=== PATIENT | female | born 1955 | race Caucasian/White ===

== ENCOUNTER 2016-08-02 12:28 | Inpatient (IN) | payer OTHER ==
[2016-08-02] VITALS (10 sets, daily range): BP systolic 101–146; BP diastolic 50–115; PULSE 78–132; RESP 18–28; O2SAT 90–99
[~2016-08-02] VITALS: Ht 165.1 cm; Wt 62.7 kg
--- NOTE | 2016-08-02 12:32 | ED.REPORT ---
HPI-General Illness Date of Service Aug 02, 2016 ED Provider: Beryl Wesley MD 60 year old female with a recent diagnoses of carotid stenosis and left subclavian stenosis presents to the ER via EMS due to syncope and collapse that occurred just prior to arrival. EMS report that they were called to the scene by a project construction assistant manager that heard the patient collapse upon returning home from an appointment with her PCP for CHF workup. Medics arrived to find the patient confused, sitting on ground, with O2 saturation in the 80's, in atrial fibrillation which is new for the patient. Mental status seemed to improve with supplemental O2. It is noted that patient seemed to have vague left side weakness and variable HR in the field. arrived shortly after the medics , and informed them that the patient has had a cough for the past month, and was diagnosed with walking pneumonia 2 days ago with directions to follow-up for CHF workup. Associated symptoms include fever for 10 days until starting antibiotics two days ago, diarrhea since starting antibiotics, 8 lb weight gain over the past week. Patient does not recall her syncopal episode, but states that she remembers dropping her honey jar prior to the event. She complains of headache since her fall, but denies any significant traumas secondary to her collapse, denies chest pain, and she has not consumed alcohol in recent weeks due to her illness. Last bowel movement was this morning. Nursing Notes Stated Complaint: AFIB Nursing Notes Reviewed: Yes Allergies: Coded Allergies: No Known Allergies (Unverified , 08/02/16) Scheduled Amoxicillin/Clav K 875-125 mg (Augmentin 875-125 mg) 1 Each Tablet 1 TABLET PO BID Aspirin (Aspirin) 81 Mg Tablet 81 MG PO DAILY Atenolol (Atenolol) 25 Mg Tablet 25 MG PO DAILY Atorvastatin (Lipitor) 80 Mg Tablet 80 MG PO DAILY Fluoxetine (Prozac) 20 Mg Capsule 20 MG PO DAILY Levothyroxine (Levothyroxine) 137 Mcg Tablet 137 MCG PO DAILY General Time Seen by MD: 12:32 Chief Complaint Other (Syncope) Hx Obtained From: Patient, Spouse, EMS Arrived By: Ambulance Sudden in Onset?: Yes Onset Occurred: Just prior to arrival Associated with: Reports: Fever, Weakness, Denies: Chest pain Recent Healthcare: Recent doctor visit Similar Sx Previous: No Past Medical History Past Medical History Records from [facility] reviewed: Aortic insufficiency CAD High cholesterol Symptomatic PVC's Subclavian artery stenosis Carotid stenosis Hodgkin's lymphoma, in remission - chemotherapy and radiation in 1979 Seen and evaluated at outpatient cardiology clinic in March 2016 for dizziness Echocardiogram from 04/2014: EF 60%, mild MR & TR, mild mod Al, trace Pl, mmild LV diastolic relax, mild MS Past Surgical History Heart valve replacement Splenectomy Uterine cyst and polyp removal Reports: Appendectomy Smoking History Unknown if Ever Smoker Social History Other Social History: Good social support, Review of Systems currently on augmentin PO per her PCP Full Review of Systems Constitutional: Reports: Chills, Fever, Weakness - generalized Respiratory: Reports: Non-productive cough, Shortness of breath Cardiovascular: Denies: Chest pain GI: Denies: Abdominal pain, Nausea, Vomiting Musculoskeletal: Denies: Back pain, Extremity pain, Lumbar pain, Neck pain Neurologic: Reports: Confusion, Focal weakness, Syncope, Weakness, Denies: Numbness, Seizure, Slurred speech, Unable to speak Complete sys rev & neg: except as marked. Physical Exam Vital Signs Vital Signs Date Time Temp Pulse Resp B/P Pulse Ox O2 Delivery O2 Flow Rate FiO2 08/02/16 14:22 121 18 111/50 92 Nasal Cannula 4 08/02/16 13:11 132 28 146/115 92 Nasal Cannula 4 08/02/16 12:38 36.7 128 24 101/60 99 Non-Rebreather 10 Initial VS: Reviewed Head / Eyes: Atraumatic, Normocephalic Neck: Supple, Non-tender, Full range of motion Abdomen / GI: Soft, Non-tender, No guarding, No rebound, No distention Extremities: Vascular intact, Neuro intact, No swelling, No tenderness Skin: Warm, Dry, No cyanosis General/Constitutional: Awake, Alert, Well developed Respiratory / Chest: No chest tenderness, No chest wall deformity Crackles in the bases, bilaterally. Right > Left. Cardiovascular: Cap refill not delayed, Peripheral circulation NL Heart Rate / Rhythm: Positive: Irregular rhythm, Tachycardia Heart Sounds / Murmur: Positive: Diastolic murmur present. (II/), Systolic murmur present.. (II/) Neurologic: Oriented X3, Speech NL, No sensory deficits Focal Weakness: Positive: Pronator drift L Cerebellar Dysfunction: Positive: Finger-nose abnl (left, mild) NIH Stroke Scale Level of Consciousness: Alert and responsive (0) Ask Month & Age: Both questions right (0) Open/Close Eyes/Hand [place] [place]: Performs both tasks (0) Horizontal EO Movements: None (0) Visual Skinner: No visual loss (0) Facial Palsy: Normal symmetry (0) Right Arm Motor Drift (10s): No drift 10 sec (0) Left Arm Motor Drift (10s): Drift, not touch bed (1) Right Leg Motor Drift (5s): No drift 5 sec (0) Left Leg Motor Drift (5s): No drift 5 sec (0) Limb Ataxia FNF/Heel-Ruiz: Ataxia in 1 limb (1) Sensation (Arms/Legs/Face): No sensory loss (0) Language Aphasia: No aphasia, normal (0) Dysarthria: No dysarthria, normal (0) Extinction/Inattention: No exctinct/inattent (0) NIHSS Score: 2 Time NIHSS Performed: 12:47 Date NIHSS Performed: Aug 02, 2016 Interpretation & Diagnostics Lab Results Interpretation Result Diagram: 08/02/16 1357 08/02/16 1423 Test 08/02/16 13:00 08/02/16 13:56 08/02/16 13:57 08/02/16 14:10 Hold Muñoz Top Tube Received (Received) Lactic Acid Level 1.9mmol/L (0.4-2.0) White Blood Count 11.8th/mm3 (3.8-10.1) Red Blood Count 3.41mil/mm3 (3.90-5.20) Hemoglobin 11.2g/dL (12.0-15.6) Hematocrit 34.0% (35.0-46.0) Mean Corpuscular Volume 99.7fL (81-100) Mean Corpuscular Hemoglobin 32.8pg (27.0-35.0) Mean Corpuscular Hemoglobin Concent 32.9% (32.0-37.0) Red Cell Distribution Width 16.4% (12.3-15.4) Platelet Count 523bil/L (150-400) Neutrophils (%) (Auto) 79.0% (40-74) Lymphocytes (%) (Auto) 4.8% (14-46) Monocytes (%) (Auto) 14.6% (4-12) Eosinophils (%) (Auto) 0.9% (0-5) Basophils (%) (Auto) 0.4% (0-3) D-Dimer 4.6mg/L (<0.50) Test 08/02/16 14:23 08/02/16 15:08 Sodium Level 130mEq/L (134-144) Potassium Level 5.0mEq/L (3.5-5.2) Chloride Level 95mEq/L (97-108) Carbon Dioxide Level 24mmol/L (18-29) Blood Urea Nitrogen 10mg/dL (8-27) Creatinine 0.47mg/dL (0.57-1.00) Estimat Glomerular Filtration Rate 193mL/min (>59) Glucose Level 156mg/dL (60-99) Calcium Level 8.1mg/dL (8.5-10.1) Magnesium Level 2.0mg/dL (1.6-2.6) Total Bilirubin 0.4mg/dL (0.0-1.2) Aspartate Amino Transf (AST/SGOT) 35U/L (0-50) Alanine Aminotransferase (ALT/SGPT) 41U/L (0-32) Alkaline Phosphatase 92U/L (25-165) Troponin T < 0.010ug/L (0.0-0.011) Pro-B-Type Natriuretic Peptide 673.7pg/mL (0-287) Total Protein 5.7g/dL (6.4-8.4) Albumin 3.2g/dL (3.4-5.0) Procalcitonin 0.05ng/mL (0.00-0.08) Urine Color Yellow (YELLOW) Urine Appearance Clear (CLEAR,HAZY) Urine pH 6.0 (5.0-8.0) Urine Specific [place] 1.025 (1.003-1.035) Urine Protein Negativemg/dL (NEG,TRACE) Urine Glucose (UA) Negativemg/dL (NEGATIVE) Urine Ketones Negativemg/dL (NEGATIVE) Urine Occult Blood Negative (NEGATIVE) Urine Nitrite Negative (NEGATIVE) Urine Bilirubin Negative (NEGATIVE) Urine Urobilinogen 4.0mg/dL (NORMAL) Urine Leukocyte Esterase Negative (NEGATIVE) Urine RBC 0-2/hpf (0-2) Urine WBC 0-5/hpf (0-5) Urine Epithelial Cells Occasional/hpf (NONE-MOD) Urine Crystals None seen (NONE SEEN) Urine Bacteria O/hpf (NONE-FEW) Urine Hyaline Casts None/lpf (NONE) Urine Granular Casts None seen (NONE SEEN) Urine Waxy Casts None seen (NONE SEEN) Urine Red Blood Cell Casts None seen (NONE SEEN) Urine White Blood Cell Casts None seen (NONE SEEN) Urine Mucus Present (None Seen) Urine Trichomonas None seen (NONE SEEN) Urine Yeast None (NONE SEEN) Urinalysis Comment Transitional epi Urine Culture Reflexed Not indicated ECG Interpretation ECG Interpretation: New atrial fibrillation with RVR, rate 134 No ischemia. Time: 12:38 Interpreted by: ED physician X-Ray Chest Interpretation Chest Xray Interpretation: IMPRESSION: Bibasilar atelectasis versus aspiration or pneumonia. Correlate clinically. Dictated by: Louis Ly RRA Interpreted: Jennifer Burroughs MD on 08/02/2016 at 14:37 Transcribed by: RONY on 08/02/2016 at 14:37 View: Portable, 1 view Interpretation / Wet Read by: Interpret - Radiologist CT Head Interpretation IMPRESSION: No acute intracranial disease process. Dictated by: Jennifer Burroughs MD, PhD on 08/02/2016 at 14:45 Approved by: Jennifer Burroughs MD, PhD on 08/02/2016 at 14:47 Study: Head CT no contrast Interpretation / Wet Read by: Interpret - Radiologist Re-Eval/Medical Decision Med Decision/Clinical Course Presents with a puzzling constellation of symptoms. Started with syncope also noted to have recent fevers, diarrhea vomiting, tachycardia, new atrial fibrillation, possible new left-sided weakness improving. CT scan does not show masses bleeds or acute stroke. NIH scale was 2 with very mild left arm symptoms of weakness and some trouble with [id number]. Chest x-ray suggests atelectasis versus pneumonia. Clinical exam does not suggest pneumonia. Calcitonin is low white count is minimally elevated with minimal left shift. No evidence of sepsis at this point will not opt straight with any antibiotics With atrial fibrillation, significant hypoxia, and new onset syncope, possibility of pulmonary embolism is certainly entertained. D-dimer significantly elevated. CT scan of the chest has been ordered. At this point patient is doing well, responded nicely to fluids. Is much better with oxygen weaned down to 4 L rather than nasal cannula. Remains in atrial fibrillation rate in the 120 range. She is tolerating the rate at this point so additional control of the atrial fibrillation has not been a focus of her emergency room visit up to this point. Patient will be turned over to Dr. Michelle Walker at 1600. CT scan is currently pending, question of medication management for her atrial fibrillation will be left to Dr. Walker, do anticipate admission once workup is complete. Final diagnosis is uncertain at this point. At this point a total of 37 minutes of critical care time has been accumulated. Please referre to Dr. Walker's notes for total critical care time. more alert and Source of Hx: Old records Time of Eval: 12:45 Re-Evaluation/Progress Note: Patient is now accompanied by her who is at the bedside. Discussed physical examination findings and need for admission. Patient is amenable to the plan. Time of Eval: 13:43 Re-Evaluation/Progress Note: Medical records from [facility] reviewed. Counseled Regarding: Diagnosis, Lab results, Need for admission Discharge & Departure Primary Impression: Syncope Additional Impression: New onset atrial fibrillation Disposition: ADMITTED TO HOSPITAL Discharge Condition All VS Reviewed: Yes Condition: Stable Referrals: Elizabeth Ann MD (PCP) Crit Care Except Billable Proc Time Spent: 30-74 minutes Services Performed: Patient management by me, Time spent at bedside, Reviewing test results, Reviewing imaging, Discussing patient care, Documentation in record, Time with fam/surrogate Scribe Attestation Portions of this note were transcribed by Carlos Mejia. I, Dr. Wesley, personally performed the history, physical exam and medical decision-making; I reviewed and confirmed the accuracy of the information in the transcribed note. Signed by: Manda Orellana, 08/02/2016 and 14:53 copies to: Elizabeth Ann MD, Shawna L MD Aug 02, 2016 12:32 CARLOS MEJIA Aug 02, 2016 12:56
[2016-08-02] MEDS ORDERED: 0.9% Sodium Chloride 1,000 ML IV ONE ×2 (12:47→17:40)
[2016-08-02 14:02] LABS: BASOPHILS % (AUTO) 0.4 % (0-3); EOSINOPHILS % (AUTO) 0.9 % (0-5); MONOCYTES % (AUTO) 14.6 % (4-12); Mean Corpuscular Hemoglobin 32.8 pg (27.0-35.0); Mean Corpuscular Volume 99.7 fL (81-100); Platelet Count 523 bil/L (150-400)
[2016-08-02] MEDS ORDERED: ATOR80TA PO (14:25)
[2016-08-02] MEDS ORDERED: HYDROmorphone 0.5 mg/0.5 mL iSecure Syringe IVPUSH PRN (14:30)
[2016-08-02] MEDS ORDERED: PROZ20 PO (14:32)
[2016-08-02] MEDS ORDERED: ASPI81TA3 PO (14:33)
[2016-08-02] MEDS ORDERED: ASPI-973 PO (14:33)
[2016-08-02] MEDS ORDERED: ATEN25TA PO (14:34)
[2016-08-02] MEDS ORDERED: LEVO137T2 PO (14:34)
[2016-08-02] MEDS ORDERED: AMOX-366 PO (14:35)
--- NOTE | 2016-08-02 14:37 | DRSVH ---
PROCEDURE: X-RAY CHEST ONE VIEW, PORTABLE ([id number]) INDICATIONS: CP TECHNIQUE: One view of the chest was acquired. COMPARISON: None. FINDINGS: Surgical changes and devices: Surgical clips within the upper abdomen. Lungs and pleura: Bibasilar airspace opacities and small left pleural effusion is present. No pneumo thorax. Mediastinum: Mediastinal contours appear normal. Heart size is normal. Bones and chest wall: No suspicious bony lesions. Overlying soft tissues appear unremarkable. IMPRESSION: Bibasilar atelectasis versus aspiration or pneumonia. Correlate clinically. Dictated by: Louis Ly [facility] Interpreted: Jennifer Burroughs MD on 08/02/2016 at 14:37 Transcribed by: RONY on 08/02/2016 at 14:37 Approved by: Jennifer Burroughs MD, PhD on 08/02/2016 at 16:59
--- NOTE | 2016-08-02 14:49 | DRSVH ---
PROCEDURE: CT BRAIN WITHOUT CONTRAST ([id number]) INDICATIONS: syncope TECHNIQUE: Noncontrast 4.5 mm thick angled axial sections acquired from the foramen magnum to the vertex, with c oronal reformats. COMPARISON: [facility], MR, MR BRAIN WO CON, 03/26/2016, 18:02. FINDINGS: Image quality: Excellent. CSF spaces: Basal cisterns are patent. No extra-axial fluid collections. Ventricles are normal in size and shape. Brain: No midline shift. No intracranial masses or hemorrhage. Physiologic calcifications noted in the globus pallidus I. Fernandez-white matter interface is normal. Bilateral vertebral artery atherosclero tic calcifications noted. Skull and face: Calvarium and visualized facial bones are intact, without suspicious lesions. Sinuses: Visualized sinuses and mastoids are clear. IMPRESSION: No acute intracranial disease process. Dictated by: Jennifer Burroughs MD, PhD on 08/02/2016 at 14:45 Approved by: Jennifer Burroughs MD, PhD on 08/02/2016 at 14:47
[2016-08-02 15:06] LABS: TROPONIN T < 0.010 ug/L (0.0-0.011)
[2016-08-02 15:25] LABS: APPEARANCE,URINE CLEAR (CLEAR,HAZY); COLOR,URINE YELLOW (YELLOW); OCCULT BLOOD,URINE NEGATIVE (NEGATIVE)
--- NOTE | 2016-08-02 16:58 | DRSVH ---
PROCEDURE: CT ANGIO CHEST PULMONARY EMBOLISM ([id number]) INDICATIONS: syncope, new a. fib, ddimer 4.6 TECHNIQUE: After the administration of intravenous contrast, 2 mm thick sections acquired from the pulmonary api carlos to the posterior costophrenic angles. 3-dimensional maximum intensity projection (MIP) coronal a nd sagittal reformats were then acquired through the thorax. For radiation dose reduction, the follo wing was used: automated exposure control, adjustment of mA and/or kV according to patient size. COMPARISON: [facility], CR, XR CHEST 1VW (PORTABLE), 08/02/2016, 12:49. FINDINGS: Image quality: Excellent. Pulmonary arteries: Pulmonary arteries are normal in size, and demonstrate no intraluminal filling d efects to suggest central pulmonary embolism. Lungs and pleura: Moderate bilateral pleural effusions a superimposed consolidations are present. No pneumothorax. There's overall appearance of increased pulmonary vascularity. Mediastinum: Heart size is normal. There is a prominent pericardial effusion, measuring 21 mm in gre atest AP dimension. No mediastinal or hilar adenopathy. Thoracic aorta is normal in caliber and enh ancement. Esophagus is normal in caliber, without hiatal hernia. Prominent vascular calcifications are present within the aorta and aortic arch. Bones and chest wall: No suspicious bony lesions. Ribs and thoracic spine appear intact throughout. Thyroid gland is not well visualized. No axillary or supraclavicular adenopathy. Abdomen: Visualized upper abdominal solid organs appear normal in the early arterial phase of enhanc ement. IMPRESSION: 1. No evidence of pulmonary embolism. 2. Moderate bilateral pleural effusions a superimposed consolidations. The latter could represent ate lectasis versus developing areas of pneumonia. 3. Mild appearance of increased pulmonary vascularity suggestive of edema. 4. Pericardial effusion. Dictated by: Meche Philip M.D. on 08/02/2016 at 16:53 Approved by: Meche Philip M.D. on 08/02/2016 at 16:56
[2016-08-02] MEDS ORDERED: Diltiazem 5 mg/mL 5 mL Inj IVPUSH ONE (17:30)
[2016-08-02] MEDS ORDERED: cefTRIAXone Inj 1,000 MG in Dextrose 5% Minibag Plus 50 ML IV ONE (17:30)
[2016-08-02] MEDS ORDERED: Azithromycin Inj 500 MG in Dextrose 5% w/Vial Mate 250 ML IV ONE (17:30)
[2016-08-02] MEDS ORDERED: Ondansetron 2 mg/mL 2 mL Inj IVPUSH PRN (17:40)
[2016-08-02] MEDS ORDERED: Alum-Mag Hydrox-Simeth 30 mL Suspension PO PRN (17:40)
[2016-08-02] MEDS ORDERED: CYCL1DRO OP (17:47)
[2016-08-02] MEDS ORDERED: IBUP400T22 PO (17:52)
[2016-08-02] MEDS ORDERED: UBID200C31 PO (17:52)
[2016-08-02] MEDS ORDERED: FAMO20TA4 PO (17:52)
[2016-08-02] MEDS ORDERED: FISH1CAP15 PO (17:52)
[2016-08-02] MEDS ORDERED: MULT-140 PO (17:52)
[2016-08-02] MEDS ORDERED: CALC500T9 PO (17:52)
--- NOTE | 2016-08-02 18:35 | NUR ---
Admit nurse note Admission assessment completed in the ER based on pt. report. Med review completed by ER pharmacist. NKA verified. Pt. denies complaints at the present. States she "passed out" or "fell" earlier today. 2 Iv's in R AC asymptomatic. at bedside. States he will bring in pt's CPAP. Pt. states she has an advance directive but cannot find it and would prefer to make a new one. Referral made to case management for advance directive information.
--- NOTE | 2016-08-02 20:00 | NUR ---
admission patient arrived to room 3028. alert and oriented x3. reviewed fall precautions. verbalized understanding. per telegraph dispatcher, patient now SR rate 90's. notified swing hospitalist via cookpaging. complains of pain to back of head (fall at home). no abrasion visualized. rates 6. given tylenol and ice pack. at bedside. brought in home cpap machine. patient on 2 liters nc. dyspneic with activity. bases of lungs are decreased bilaterally. non productive cough. up to bsc. pale urine. skin within normal limits. reviewed plan of care. no questions at this time.
[2016-08-02] MEDS: RESTASIS BOTH_EYES SCH (20:30)
[2016-08-02] MEDS: Omega-3 Fatty Acids 1,000 mg Capsule PO SCH (21:47)
[2016-08-02] MEDS: Amoxicillin-Clav 875-125 mg Tablet PO SCH (22:20)
[2016-08-03] VITALS (13 sets, daily range): BP systolic 118–149; BP diastolic 62–76; PULSE 68–113; RESP 18–26; O2SAT 91–96
[2016-08-03] MEDS ORDERED: Senna-Docusate 8.6-50 mg Tablet PO PRN (01:05)
[2016-08-03] MEDS ORDERED: Polyethylene Glycol (PEG) 17 Gm Powder PO PRN (01:05)
[2016-08-03] MEDS ORDERED: Furosemide 10 mg/mL 4 mL Inj IVPUSH ONE (01:05)
--- NOTE | 2016-08-03 01:07 | PCM.HPMED ---
Subjective Date of Service Aug 03, 2016 Primary Provider: Admitting Physician: Melo Mata MD Primary Care Physician: Elizabeth Ann MD Attending Physician: Melo Mata MD Chief Complaint: Syncope, A. fib with RVR History of Present Illness: 60 year old female with a recent diagnoses of carotid stenosis and left subclavian stenosis presents to the ER via EMS due to syncope and collapse that occurred just prior to arrival. EMS report that they were called to the scene by a construction specialist that heard the patient collapse upon returning home from an appointment with her PCP for CHF workup. Medics arrived to find the patient confused, sitting on ground, with O2 saturation in the 80's, in atrial fibrillation which is new for the patient. Mental status seemed to improve with supplemental O2. It is noted that patient seemed to have vague left side weakness and variable HR in the field. arrived shortly after the medics , and informed them that the patient has had a cough for the past month, and was diagnosed with walking pneumonia 2 days ago with directions to follow-up for CHF workup. Associated symptoms include fever for 10 days until starting antibiotics two days ago, diarrhea since starting antibiotics, 8 lb weight gain over the past week. Patient does not recall her syncopal episode, but states that she remembers dropping her honey jar prior to the event. She complains of headache since her fall, but denies any significant traumas secondary to her collapse, denies chest pain, and she has not consumed alcohol in recent weeks due to her illness. Last bowel movement was this morning. Patient describes a 3 week history of illness he started off with a cough just generalized malaise and fatigue she finally went to see her regular care provider who started treating her for pneumonia about a week ago, she has not felt any better and then now in the last few days she has not been eating but she has been gaining weight and feeling worse and more fatigued until the events described today as above Review of Systems: Gen.: No weight loss ++weight gain, fevers, chills Eyes: no visual disturbances or blurring vision HEENT: No nose/throat drainage, no pain in ears or throat, no hearing loss Lymph: No lymph nodes noted Cardiac: No chest pain, orthopnea, PND, pedal edema + dyspnea on exertion, palpitations , Pulmonary: ++ cough, wheezing or bringing up of sputum, dyspnea GI: No nausea vomiting blood or black in the stool anorexia : no dysuria hematuria urinary frequency +decrease in urine output Musculoskeletal: Joint swelling no joint pain no new muscle aches or back pain Neuro: No syncope, seizures no loss of consciousness no new focal weakness, numbness or tingling Psychiatric: New new anxiety insomnia or depression Endocrine: No new heat or cold intolerances polyuria or polydipsia Hematology: No lymphadenopathy or easy bleeding or bruising noted skin: No new rashes, stasis dermatitis Allergies Coded Allergies: No Known Allergies (Unverified , 08/02/16) Home Medications Scheduled Amoxicillin/Clav K 875-125 mg (Augmentin 875-125 mg) 1 Each Tablet 1 TABLET PO BID Aspirin (Aspirin) 81 Mg Tablet 81 MG PO DAILY Atenolol (Atenolol) 25 Mg Tablet 25 MG PO DAILY Atorvastatin (Lipitor) 80 Mg Tablet 80 MG PO DAILY Fluoxetine (Prozac) 20 Mg Capsule 20 MG PO DAILY Levothyroxine (Levothyroxine) 137 Mcg Tablet 137 MCG PO DAILY PMH Aortic insufficiency CAD High cholesterol Symptomatic PVC's Subclavian artery stenosis Carotid stenosis Hodgkin's lymphoma, in remission - chemotherapy and radiation in 1979 Seen and evaluated at outpatient cardiology clinic in March 2016 for dizziness Echocardiogram from 04/2014: Patient tells me there was an echocardiogram done April 2016 I am presuming this is the same one EF 60%, mild MR & TR, mild mod Al, trace Pl, mmild LV diastolic relax, mild MS Past Surgical History Heart valve replacement Splenectomy Uterine cyst and polyp removal Reports: Appendectomy Smoking History Unknown if Ever Smoker Social History Other Social History: Good social support, Family history significant for CAD, father had OK and at 38, mother had CVA at age 72 Social History Hx Alcohol Use: Yes (hasn't had anything last couple weeks ) Alcoholic Drinks Per Day: 1-2 glass of wine a day Hx Substance Use: No Hx Tobacco Use: No Smoking Status: Unknown if Ever Smoker Exam Vital Signs Vital Sign - Last Date Time Temp Pulse Resp B/P Pulse Ox O2 Delivery O2 Flow Rate FiO2 08/02/16 21:41 78 116/66 08/02/16 20:00 Supplement Oxygen 08/02/16 19:33 36.7 18 96 2.00 Intake and Output 08/02/16 08/02/16 08/03/16 Cumulative From/Thru 15:00 23:00 07:00 08/02/16 12:38 - 08/02/16 20:00 Intake Total 1000 ml 1000 ml 2000 ml Balance 1000 ml 1000 ml 2000 ml Intake IV Total 1000 ml 1000 ml 2000 ml Exam Gen.- A+ O 3 no apparent distress. Lying in bed Eyes- open conjunctiva clear, pupils equal nonicteric Mouth- oral mucosa moist, no exudate, dentition intact ENT- ears normal, nose normal Neck- supple/trach midline CVS- RRR no murmur or gallop, no pedal edema Lungs- CTA , diminished breath sounds toward the bases no crackles auscultated patient moving decent air towards the apices GI- NABS/NT soft Musc- moving 4 no obvious deformity Neuro- cranial nerves II through XII intact to gross examination, nonfocal Skin- warm and dry, no rashes/lesions/wounds noted Psych- pleasant and appropriate, Lab and Diagnostics Labs LFTs normal, troponin less than 0.10, proBNP 673, pro calcitonin 0.05 Result Diagram: 08/02/16 1357 08/02/16 1423 X-Rays, CTs and MRIs CTA chest 1. No evidence of pulmonary embolism. 2. Moderate bilateral pleural effusions a superimposed consolidations. The latter could represent atelectasis versus developing areas of pneumonia. 3. Mild appearance of increased pulmonary vascularity suggestive of edema. 4. Pericardial effusion. Dictated by: Meche Philip M.D. on 08/02/2016 at 16:[address] no acute abnormality CXR bibasilar atelectasis or pneumonia 12-lead ECG EKG shows atrial fibrillation with a rate of 134, QTC is read to be 518 ms but it does not appear that long to me. If in question recommend calculating by hand Assessment & Plan 60-year-old female presents after 3 week history of illness started with what sounds initially like a viral illness, perhaps there was a pneumonia that is now partially treated and now the patient is in CHF with a pericardial effusion. Atrial fibrillation with rapid ventricular response-patient converted to sinus rhythm while here on the floor. I believe she received a dose of diltiazem from the emergency room for rate control. Her chads score is 0 anticoagulation is not indicated beyond an aspirin and I will prescribe metoprolol for rate control Acute diastolic CHF-reportedly normal echo April 2016, will get serial enzymes at this time another EKG and echocardiogram to see where we are. I am going to begin treating with furosemide Pericardial effusion-echocardiogram ordered, patient does not appear to have any tamponade type physiology at this time Pneumonia-emergency room started this patient on Rocephin/Zithromax for community-acquired pneumonia but that is not a problem, whether pneumonia was ever the problem is not clear that we will finish her course of Augmentin however I think the patient's primary issues are cardiac Bilateral pleural effusions-patient was initially on 4 L but titrated down to 2 L and now on room air when I saw her no intervention at this time other than diuresis Prophylaxis- DVT with SCDs and Lovenox, GI not indicated Disposition-full code from home Melo Mata MD Aug 03, 2016 01:07
[2016-08-03 02:05] LABS: INR 0.96 ratio
[2016-08-03 02:19] LABS: Magnesium 2.1 mg/dL (1.6-2.6)
--- NOTE | 2016-08-03 03:48 | NUR ---
increased oxygen patient complained of dyspnea at approximately 0200. very coarse breath sounds. tachypnea, anxious. medicated with lasix 40mg iv as ordered. increased oxygen from 2 liters cpap bleed to 6 liters oxymask (now 5 liters). urine output at this time 1000ml. dyspnea now resolved. but unable to titrate oxygen. hob at 45 degrees. bronchospastic cough with activity. notified night hospitalist of oxygen increase via cookpaging. Addendum: 08/03/16 at 0400 by ANTONY BENNETT RN Dr Franco returned paged. discussed above. plan to cont to observe patient, and notify MD of further changes. care ongoing
[2016-08-03 08:14] LABS: BASOPHILS % (AUTO) 0.6 % (0-3); EOSINOPHILS % (AUTO) 1.7 % (0-5); MONOCYTES % (AUTO) 15.3 % (4-12); Mean Corpuscular Hemoglobin 32.2 pg (27.0-35.0); Mean Corpuscular Volume 99.4 fL (81-100); NEUTROPHILS % (AUTO) 68.9 % (40-74); Platelet Count 643 bil/L (150-400)
[2016-08-03] MEDS ORDERED: Non-Formulary Medication (Ubidecarenone (Coenzyme Q-10) 200 MG) PO SCH (08:30)
[2016-08-03] MEDS: RESTASIS BOTH_EYES SCH ×2 (08:30→20:37)
[2016-08-03 08:57] LABS: TROPONIN T 0.01 ug/L (0.0-0.011)
[2016-08-03] MEDS: Furosemide 10 mg/mL 4 mL Inj IVPUSH SCH (09:29)
[2016-08-03] MEDS: Amoxicillin-Clav 875-125 mg Tablet PO SCH ×2 (09:35→23:02)
--- NOTE | 2016-08-03 10:35 | NUR ---
Social Work: Screening Data: Pt is a 60 y/o female admitted for Afib with RVR. Pt's PCP is Dr Ann, pt's insurance is [employer]. EMR reviewed. Pt is currently on O2, no O2 at baseline. 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 Assessment: Pt who is independent at baseline. Plan: Pt will d/c home via POV when medically stable. 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 ELIU Morales
--- NOTE | 2016-08-03 14:36 | DRSVH ---
[facility] [address] [place] [address] Echocardiogram Report Name: EVELIA BINGHAM DStudy Date : 08/03/2016 Height: 65 in Hospital Exam Location: [facility] Weight: 136 lb Gender: Female BSA: 1.7 m2 : 1955 Age: 60 yrs BP: 125/62 mmHg Reason For Study: CHF Ordering Physician: HOSPITALIST OZIELerformed By: Benny Seaman Referring Physician: Dorita COLE Interpretation Summary The left ventricle is normal in size. Left ventricular systolic function is normal without focal wall motion abnormalities. The ejection fraction is estimated to be 60-65%. Assessment of diastolic parameters suggests a pseudonormalization pattern, consistent with elevated filling pressures. The right ventricle is normal in size and function. The right ventricular systolic pressure is estimated at 31 mmHg assuming a right atrial pressure of 3 mm Hg. The left atrium is severely dilated. The right atrium is mildly dilated. There is mild to moderate mitral regurgitation. There is moderate aortic regurgitation. There is mild to moderate aortic stenosis. The calculated aortic valve area is 1.4 cm2. There is mild to moderate tricuspid regurgitation. The aortic root is normal size. There is a large right-sided pleural effusion. There is a moderate left-sided pleural effusion. Procedure: A two-dimensional transthoracic echocardiogram with color flow and Doppler was performed. The study quality was technically good. There is no prior echocardiogram noted for this patient. The patient was in normal sinus rhythm during the exam. Left Ventricle: The left ventricle is normal in size. There is normal left ventricular wall thickness. Left ventricular systolic function is normal without focal wall motion abnormalities. The ejection fraction is estimated to be 60-65%. Assessment of diastolic parameters suggests a pseudonormalization pattern, consistent with elevated filling pressures. Right Ventricle: The right ventricle is normal in size and function. Atria: The left atrium is severely dilated. The right atrium is mildly dilated. The interatrial septum is intact with no evidence for an atrial septal defect. Mitral Valve: The mitral valve is normal in structure and function. The mitral valve leaflets are slightly calcified. There is mild to moderate mitral regurgitation. Aortic Valve: The aortic valve is not well visualized. The aortic valve is moderately calcified. The peak aortic velocity is 2.21 m/sec. The aortic valve mean gradient is 11.9 mmHg. The calculated aortic valve area is 1.4 cm2. There is mild to moderate aortic stenosis. There is moderate aortic regurgitation. Tricuspid Valve: The tricuspid valve is normal in structure and function. There is mild to moderate tricuspid regurgitation. The right ventricular systolic pressure is estimated at 31 mmHg assuming a right atrial pressure of 3 mm Hg. Pulmonic Valve: The pulmonic valve is normal in structure and function. There is mild pulmonic regurgitation. Great Vessels: The aortic root is normal size. The dimensions of the ascending aorta are normal. The pulmonary artery is normal size. The IVC is of normal diameter and collapses greater than 50% with a sniff. This suggests a low right atrial pressure of 3 mm Hg. Pericardium/ Pleura There is no pericardial effusion. There is a large right-sided pleural effusion. There is a moderate left-sided pleural effusion. MMode/2D Measurements & Calculations LVIDd: 4.4 cm RA long axis LVOT diam: 2.0 cm LVIDs: 3.1 cm LA A2 area: 23.7 cm Ao root diam FS: 27.8 % LA A4 area: 22.7 cm RA area EPSS: 0.54 cm LA length (vol) asc Aorta Diam IVSd: 0.68 cm : 17.2 cm LVPWd: 0.63 cm LA vol: 83.0 ml RA vol Ao Arch Diam (Prox LA vol index : 55.0 ml Trans): 2.8 cm RA : 32.7 mm2 IVC diam: 1.9 cm LV leiva. diameter/BSA LV sys. diameter/BSA RVD1 (basal) RVD2 (mid): 3.1 cm (cm/m^2): 2.6 (cm/m^2): 1.9 Doppler Measurements & Calculations Ao V2 max MV E max marcos MV E/A: 1.6 TR max marcos : 221.3 cm/sec : 99.6 cm/sec Med Peak E' Marcos : 264.9 cm/sec Ao max PG MV A max marcos TR max PG : 19.6 mmHg : 63.7 cm/sec E/E' med: 18.1 : 28.1 mmHg Ao mean PG Lat Peak E' Marcos PA V2 max : 11.9 mmHg : 126.2 cm/sec LVOT Max Marcos E/E' lat: 14.8 PA mean PG : 103.5 cm/sec E/e' average PA Accel Time IVY(I,D): 1.4 cm MV A dur : 0.09 sec sev ratio: 0.44 : 0.13 sec AI P1/2t : 256.6 msec AI dec slope : 405.2 cm/s2c MV dec time Ao V2 mean LV V1 max PG MR PISA radius : 0.23 sec : 164.4 cm/sec Ao V2 VTI: 51.1 cm LV V1 VTI IVY(V,D): 1.5 cm2 : 22.3 cm PA V2 mean IVY indexed to BSA : 81.4 cm/sec (cm^2/m^2): 0.83 PA pr(Accel) : 41.6 mmHg Reading Physician:PM
--- NOTE | 2016-08-03 15:26 | PCM.PNMED ---
Subjective Date of Service Aug 03, 2016 Subjective reports some ongoing SOB and generalized weakness. denies any other new issues/ complaints. Exam Vital Signs Vital Sign - Last Date Time Temp Pulse Resp B/P Pulse Ox O2 Delivery O2 Flow Rate FiO2 08/03/16 13:47 36.8 87 120/63 91 OxyMask 5.00 08/03/16 05:04 20 Intake and Output 08/02/16 08/02/16 08/03/16 Cumulative From/Thru 15:00 23:00 07:00 08/02/16 12:38 - 08/03/16 06:35 Intake Total 1000 ml 1000 ml 100 ml 2100 ml Output Total 1250 ml 1250 ml Balance 1000 ml 1000 ml -1150 ml 850 ml Intake Oral 100 ml 100 ml IV Total 1000 ml 1000 ml 2000 ml Output Urine Total 1250 ml 1250 ml General: Alert, Cooperative, No Acute Distress Head: Normal Eyes: Scleral Anicteric Nose: Mucous Membr Moist/[place] Mouth: Mucous Membr Moist/[place] Neck: Supple Chest & Lungs: Chest Wall Normal, Clear to auscultation & percussion, Other ( decreased bs at bases bilat) Cardiovascular: Regular Rate/Rhythm Pulses: NL carotid, radial, femoral, DP, PT Abdomen: Non-tender, Non-distended, Normoactive bowel tones, Soft Extremities: No cyanosis/clubbing/edma bilat Neurological: Grossly Neurologically Intact, Normal Speech IVs and Medications Medications Reviewed: Medications were reviewed in detail Lab and Diagnostics Result Diagram: 08/03/16 0755 08/03/16 0755 X-Rays, CTs and MRIs CTA chest 1. No evidence of pulmonary embolism. 2. Moderate bilateral pleural effusions a superimposed consolidations. The latter could represent atelectasis versus developing areas of pneumonia. 3. Mild appearance of increased pulmonary vascularity suggestive of edema. 4. Pericardial effusion. Dictated by: Meche Philip M.D. on 08/02/2016 at 16:[address] no acute abnormality CXR bibasilar atelectasis or pneumonia 12-lead ECG EKG shows atrial fibrillation with a rate of 134, QTC is read to be 518 ms but it does not appear that long to me. If in question recommend calculating by hand Assessment & Plan 60 year old female with known history of left ICA stenosis and left subclavian stenosis presents to the ER via EMS due to syncope and collapse that occurred just prior to arrival. Medics arrived to find the patient confused, sitting on ground, with O2 saturation in the 80's, in atrial fibrillation which is new for the patient. Mental status seemed to improve with supplemental O2. It is noted that patient seemed to have vague left side weakness and variable HR in the field. arrived shortly after the medics, and informed them that the patient has had a cough for the past month, and was diagnosed with walking pneumonia 2 days earlier with directions to follow-up for CHF workup. Associated symptoms include fever for 10 days until starting antibiotics two days earlier, diarrhea since starting antibiotics, 8 lb weight gain over the past week. # Acute and new onset atrial fibrillation with rapid ventricular response, present on admission. Resolved - converted to sinus rhythm soon after admission - c/w Atenolol qhs - f/u on Tele # Possible acute diastolic CHF - f/u Echo - ruled out ACS by negative Trop - c/w IV Lasix started on admit - f/u I/O # Acute syncope, prior to admission. - ? etiology - ? if related to underlying subclavian stenosis / subclavian steal syndrome - will discuss w/ vs consult cardiology and ? need to transfer for further assessment by vascular surgery # Possible community-acquired pneumonia - whether pneumonia was ever the problem is not clear - will finish her course of Augmentin at this time # Bilateral pleural effusions. suspect acute. present on admission. - consider thoracentesis if decision made not to transfer patient to higher level of care for evaluation of subclavian artery stenosis. # CAD. presumed stable for now - c/w outpatient cardiac meds # Hodgkin's lymphoma, in remission - chemotherapy and radiation in 1979 Dispo: 1-2 days pending above workup Time spent 35 min Willie Green Aug 03, 2016 15:26
--- NOTE | 2016-08-03 18:01 | NUR ---
increased O2 demands Patient reports increased shortness of breath at 1715, RR 26, spo2 92% on 3L NC. Slight supraclavicular retractions noted. Lungs clear to auscultation. Increased O2 to 5L by mask and spo2 increased to 95%. Placed patient in semi fowlers position. Patient C/O feeling slightly confused. Notified kavita joy MD (Norma) by pelon crespo. Awaiting new orders. Patient reports feeling "the same, not worse" at 1750. Bed low and locked, call light in reach, care and frequent rounding ongoing. Addendum: 08/03/16 at 1816 by BERONICA REHMAN RN 1814 patient's spo2 sats 94% on 5L by simple mask. RR 26 with continued slight supraclavicular retractions. Patient sounds slightly wheezy on expiration. No return call from kavita joy. Will page night hospitalist.
[2016-08-03] MEDS ORDERED: Furosemide 10 mg/mL 2 mL Inj IVPUSH ONE (18:25)
--- NOTE | 2016-08-03 18:47 | NUR ---
1820 order for one time dose of 20 mg Lasix received. Sats still 94% on 5L O2. RR 26, slight supraclavicular retractions noted. Will continue to monitor.
--- NOTE | 2016-08-03 20:00 | NUR ---
increased work of breathing patient with increased work of breathing. rr 30 . 90% on 6 liters oxymask. breath sounds are very decreased in the bases. faint crackles in the upper lobes. bronchospastic nonproductive cough. coughs with activity. accessory muscle use. fatigued. pale. ill appearing. tele hr 110, SR. bp 135/71. afebrile. notified dr reed of above via cookpaging. ordered abg now. care ongoing. hob at 45 degrees. inreased oxygen to 7 liters.
--- NOTE | 2016-08-03 20:27 | ABG ---
DateTimeAnalyzed 20:19:12 -_ pH ____7.490 - pCO2 ___35.6__ -mmHg pO2 ___65.7__ -mmHg HCO3- ___27.1__ -mmol/L ABE ____3.6__ -mmol/L tHb ___14.0__ -g/dL O2Hb ___92.6__ -% COHb ____1.0__ -% MetHb ___-0.3__ -% sO2 ___93.3__ -% FIO2 ___21.0__ -% Drawn By LT - Date/Time Notified____ 20:27:00 -_ Notified By LT - Notified Whom ___DR. SULLENBERGER -____ B 747 -mmHg K+ ____4.0__ -mmol/L tO2 ___18.2__ -Vol% Segundo test _Positive -
--- NOTE | 2016-08-03 21:00 | NUR ---
code stroke abg's called to dr Franco. patient noted at 193 by rn to have left periorbital swelling. swelling caused eye to appear droopy. after abg's paged to MD, patient noted to have left facial droop with a smile. no other abnormalities noted with neuro check. Dr Franco to bedside. notified of above. performed neuro assessment. code stroke called. blood sugar 119. vital signs as documented at 2053. patient cont. to be alert and oriented x3. following commands easily. transferred to CT scan and then the ED per stroke protocol. called Liban. left message. Friend Nataly at bedside, updated to cares. all belongings including cpap transferred to 2030.
--- NOTE | 2016-08-03 21:18 | DRSVH ---
PROCEDURE: CT BRAIN WITHOUT CONTRAST ([id number]) INDICATIONS: 60 year-old female with new cranial nerve deficits. TECHNIQUE: Noncontrast 4.5 mm thick angled axial sections acquired from the foramen magnum to the vertex, with c oronal reformats. COMPARISON: [facility], CT, CT BRAIN WO CON, 08/02/2016, 14:36. FINDINGS: Image quality: Excellent. CSF spaces: Basal cisterns are patent. No extra-axial fluid collections. Ventricles are normal in size and shape. Brain: No midline shift. No intracranial masses or hemorrhage. There is no focal loss of iglesias-white matter differentiation within the right frontal lobe, measuring 2.9 x 2.5 cm. Bilateral basal gangli a calcifications are again noted. Skull and face: Calvarium and visualized facial bones are intact, without suspicious lesions. Sinuses: Visualized sinuses and mastoids are clear. IMPRESSION: Interval development of acute nonhemorrhagic ischemic insult involving the right frontal lobe. Findings discussed with Dr. Franco on 7 hours on August 03, 2016. Dictated by: Garrett Hay M.D. on 08/03/2016 at 21:13 Approved by: Garrett Hay M.D. on 08/03/2016 at 21:18
--- NOTE | 2016-08-03 21:44 | NUR ---
communication spoke to Liban. notified of change in patient's condition. and transfer to new room 2030. flannery placed at front desk clerk for Nataly the friend to take home.
--- NOTE | 2016-08-03 22:10 | NUR ---
verbal report verbal report called to ablouise rn.
[2016-08-03] MEDS: Omega-3 Fatty Acids 1,000 mg Capsule PO SCH (23:03)
[2016-08-04] VITALS (12 sets, daily range): BP systolic 93–156; BP diastolic 58–75; PULSE 80–109; RESP 20–24; O2SAT 91–98
[2016-08-04 04:08] LABS: Free Thyroxine Index 1.5 (1.2-4.9); Thyroxine (T4) 5.7 ug/dL (4.5-12.0)
--- NOTE | 2016-08-04 04:44 | ABG ---
DateTimeAnalyzed 04:37:17 -_ pH ____7.466 - pCO2 ___38.8__ -mmHg pO2 ___98.9__ -mmHg HCO3- ___28.0__ -mmol/L ABE ____4.0__ -mmol/L tHb ___11.1__ -g/dL O2Hb ___97.1__ -% COHb ____0.7__ -% MetHb ____0.1__ -% sO2 ___97.9__ -% FIO2 ___70.0__ -% Drawn By LT - Date/Time Notified____ 04:44:00 -_ Notified By LT - Notified Whom ___DR. SULLENBERGER -____ B 750 -mmHg K+ ____4.0__ -mmol/L tO2 ___15.3__ -Vol% Segundo test _Positive -
[2016-08-04 05:06] LABS: Phosphorus 3.7 mg/dL (2.5-4.9)
--- NOTE | 2016-08-04 07:30 | NUR ---
Transfer Pt arrived from ER (post Stroke Tele conference) approx at 2140. Per report; pt symptoms improved. She is A&O x4. Equal sterilisation technician and strength. Slight left facial drop noted. Pt passed nursing swallow eval. Tolerated PO meds well. High Flow (HF) NC at 70% FIO2 pt tolerating HF well. SPO2 high 90s. Pt denies SOB. Pt anticipating MRI/MRA and angio CT of neck and brain per CVA protocol. . No over complications noted.
--- NOTE | 2016-08-04 07:46 | DRSVH ---
PROCEDURE: X-RAY CHEST ONE VIEW, PORTABLE ([id number]) INDICATIONS: hypoxia, pleural effusion TECHNIQUE: One view of the chest was acquired. COMPARISON: [facility], CR, XR CHEST 1VW (PORTABLE), 08/02/2016, 12:49. FINDINGS: Surgical changes and devices: Left upper quadrant and mid abdominal surgical clips. Lungs and pleura: No pneumothorax 3 small bilateral pleural effusions. Moderate basilar predominant interstitial pulmonary opacity. Mediastinum: Mediastinal contours appear normal. Heart size is normal. Bones and chest wall: No suspicious bony lesions. Overlying soft tissues appear unremarkable. IMPRESSION: Moderate CHF. Dictated by: Vj Uriarte M.D. on 08/04/2016 at 7:39 Approved by: Vj Uriarte M.D. on 08/04/2016 at 7:40
[2016-08-04] MEDS: Amoxicillin-Clav 875-125 mg Tablet PO SCH ×2 (07:53→20:06)
[2016-08-04] MEDS: Furosemide 10 mg/mL 4 mL Inj IVPUSH SCH (07:54)
[2016-08-04] MEDS: RESTASIS BOTH_EYES SCH ×2 (07:55→20:06)
--- NOTE | 2016-08-04 09:03 | NUR ---
Evaluation completed. Please go to "Notes" then click on "Assessments and Notes" (bottom left corner of screen). Then select appropriate discipline tab on top of screen.
[2016-08-04 09:59] LABS: BASOPHILS % (AUTO) 0.3 % (0-3); EOSINOPHILS % (AUTO) 0.3 % (0-5); MONOCYTES % (AUTO) 12.7 % (4-12); Mean Corpuscular Hemoglobin 32.1 pg (27.0-35.0); Mean Corpuscular Volume 97.3 fL (81-100); NEUTROPHILS % (AUTO) 78.8 % (40-74); Platelet Count 756 bil/L (150-400)
--- NOTE | 2016-08-04 10:50 | DRSVH ---
PROCEDURE: CT ANGIO HEAD AND NECK (P) INDICATIONS: CVA TECHNIQUE: Pre-contrast 4.5 mm thick sections acquired from the foramen magnum to the vertex. After the adminis tration of intravenous contrast, 1 mm thick sections acquired from the aortic arch through the [place] of [place]. Post-contrast 4.5 mm thick sections then re-acquired from the foramen magnum to the vert ex. 3-dimensional eogwwir-ebutvwmnl-zsyhbvybjt (MIP) and/or volume rendering reformats were acquired of the central intracranial vasculature and neck separately. For radiation dose reduction, the foll owing was used: automated exposure control, adjustment of mA and/or kV according to patient size. COMPARISON: [facility], CT, CT ANGIO CHEST PE, 08/02/2016, 16:38. FINDINGS: Image quality: Partially degraded by a vascular calcification and motion artifact. BRAIN: CSF spaces: Ventricles are normal in size and shape. Basal cisterns are patent. No extra-axial flu id collections. Brain: No midline shift. There is a late subacute appearing infarct within the right anterolateral frontal lobe, measuring 34 mm. Bilateral basal ganglia calcifications are present. No intracranial bl eeds or masses. Fernandez-white matter interface appears intact. Skull and face: Calvarium and facial bones appear intact, without suspicious lesions. Orbits appear normal. Sinuses: Sinuses and mastoids are clear. HEAD CT ANGIOGRAPHY: Anterior circulation: Intracranial internal carotid arteries are normal in size and flow. The flow within the paired anterior cerebral arteries is normal and symmetric. The flow within the middle cer ebral arteries is normal and symmetric. The anterior communicating artery is seen. No aneurysms are seen. Posterior circulation: Visualized portions of the vertebral arteries demonstrate normal caliber, and join to form a normal appearing basilar artery. Flow within the posterior cerebral arteries is norm al and symmetric. No aneurysms are seen. NECK CT ANGIOGRAPHY: Vascular structures: Great vessels demonstrate conventional branching anatomy. The proximal great ve ssels are not well seen secondary to calcification and motion artifact. Innominate artery not well-se en at its origin secondary to vascular calcification. Possible high-grade innominate artery stenosis is present. Right subclavian artery demonstrate mild diffuse stenosis. Right vertebral artery origin not well-seen. Right vertebral artery otherwise is patent. Right common carotid artery is mildly diff usely stenotic as visualized, but is not well-seen at its origin. Right external carotid artery is mo derately stenotic at its origin. Right internal carotid artery is mildly stenotic at its origin, it i s otherwise patent. Left common carotid artery is not well-seen proximally, but demonstrate mild diff use calcific stenosis. Moderate to high-grade calcific stenosis within the left mid common carotid ar mikey. Left external carotid artery demonstrates high-grade origin stenosis. Left internal carotid art aric demonstrates mild, roughly 30% origin stenosis. Left internal carotid arteries otherwise patent. Left subclavian artery not well-seen proximally, but demonstrates possible moderate diffuse stenosis. Left vertebral artery is patent as visualized. Soft tissues: Visualized neck soft tissues demonstrate no suspicious abnormalities. No change in bi lateral pleural effusions. Bones: No suspicious bony lesions. Visualized cervical spine appears normally aligned. IMPRESSION: 1. Suboptimally visualized proximal great vessels and proximal right vertebral artery. 2. Mild bilateral internal carotid artery stenosis as described above. 3. Patent left vertebral artery. 4. Subacute right frontal lobe infarct. No acute intracranial abnormality. Dictated by: Vj Uriarte M.D. on 08/04/2016 at 10:37 Approved by: Vj Uriarte M.D. on 08/04/2016 at 10:44
--- NOTE | 2016-08-04 15:40 | PCM.PROC ---
Procedure Note Date of Service: Aug 04, 2016 Pre Procedure Diagnosis: Right pleural effusion Post Procedure Diagnosis: Right pleural effusion Procedure: Right thoracentesis Indication for Procedure: Right pleural effusion Findings: Straw colored fluid Procedure Details: Consent was obtained from the patient prior to the procedure. Indications, risks , and benefits were explained at length. A time-out was performed. Ultrasound used to fiorella location. The area was cleansed and draped in sterile fashion using chlorhexidine scrub. Anesthesia was achieved with 1% lidocaine to the pleural surface. The thoracentesis catheter was inserted and advanced with negative pressure until yellow colored fluid was aspirated. Approximately 30 mL of pleural fluid was collected and sent for laboratory analysis. The catheter was then connected to the Vacutainer and approximately 1200 ml of additional pleural fluid was drained. The catheter was removed. and gauze held in place for 2 minutes. A band-aid was placed over the puncture wound. The patient tolerated the procedure well without any immediate complications. Chest x-ray is pending. Estimated blood loss was minimal. Dr. Smiley Constantino was present throughout the procedure. Specimen: Approximately 1200 mL of pleural effusion was collected and sent for laboratory analysis. Attending Statement Procedure: Ultrasound-guided right thoracentesis Date of service: 08/04/16 I was present for and supervised the entire procedure Smiley Constantino M.D. Pulmonary and Critical Care medicine Pager [phone] copies to: Smiley Constantino MD, Marissa L DO Aug 04, 2016 15:35 Smiley Constantino MD Aug 06, 2016 16:31
--- NOTE | 2016-08-04 15:56 | DRSVH ---
PROCEDURE: X-RAY CHEST ONE VIEW, PORTABLE ([id number]) INDICATIONS: right thoracentesis. r/o pneumothorax TECHNIQUE: One view of the chest was acquired. COMPARISON: [facility], CR, XR CHEST 1VW (PORTABLE), 08/03/2016, 22:11. [facility], CR, XR CHEST 1VW (PORTABLE), 08/02/2016, 12:49. FINDINGS: Surgical changes and devices: None. Lungs and pleura: No pneumothorax. Small left pleural effusion is unchanged. Moderate left mid and l ower lung pneumonia is unchanged.. Mediastinum: Mediastinal contours appear normal. Heart size is normal. Bones and chest wall: No suspicious bony lesions. Overlying soft tissues appear unremarkable. IMPRESSION: 1. No complication following thoracentesis. 2. No change in left lung pneumonia and parapneumonic effusion. Continued plain film surveillance is recommended to ensure resolution, and to exclude underlying or central malignancy. Dictated by: Vj Uriarte M.D. on 08/04/2016 at 15:49 Approved by: Vj Uriarte M.D. on 08/04/2016 at 15:50
--- NOTE | 2016-08-04 15:58 | CONS ---
[address] [address] CONSULTATION REPORT PATIENT: EVELIA BINGHAM : 1955 MR#: [id number] ADMIT: 08/02/2016 JOB ID: [id number] DATE OF SERVICE: 08/04/2016 PULMONARY CONSULTATION NOTE: The patient is a 60-year-old woman seen in consultation at the request of Dr. Hdez for bilateral pleural effusions and hypoxic respiratory failure. HISTORY OF PRESENT ILLNESS: A 60-year-old woman presenting to the hospital on August 02 with a syncopal episode. She had a recent diagnosis of carotid stenosis and left subclavian stenosis. Over the course of the hospital stay she also developed stroke-like symptoms but it was thought that this occurred outside of the window of giving thrombolytics. Of note, workup revealed enlarged bilateral pleural effusions that were confirmed on chest CT. On asking the patient, denies significant shortness of breath despite currently being on oxygen. Her family indicates that she has actually been short of breath for a few days. She says she gained about 8 pounds in the last week or so before coming in the hospital. She also gives a history of soft stools, some abdominal pain, fever and chills a few days prior to admission. She has been afebrile in the hospital. She is currently on 6 L nasal cannula in bed at rest. She does have a cough that is wet but nonproductive for a few weeks to months. She denies any chest pain. PAST MEDICAL HISTORY: 1. Hodgkin lymphoma 30 years ago. 2. Aortic insufficiency. 3. Coronary artery disease. 4. Subclavian and carotid stenosis. 5. History of splenectomy. SOCIAL HISTORY: Nonsmoker, never smoker. FAMILY HISTORY: No history of lung disease. REVIEW OF SYSTEMS: A 10 point review of systems is negative except as mentioned in HPI. PHYSICAL EXAMINATION: Vital signs reviewed. Afebrile. Pulse 109, respirations 24, BP 132/70. Sats 95% on 6 L nasal cannula. General: Pale, chronically ill-appearing woman sitting in bed, appearing lethargic in no distress. Neck: No cervical lymphadenopathy. HEENT: Oral mucosa is moist. No ulcers or thrush. Chest: Decreased breath sounds at both lung bases. Heart: Regular rate, rhythm. No murmurs. Abdomen: Soft, nontender. No organomegaly. Extremities: No cyanosis, clubbing, or edema. LABORATORY: WBC 13.9, hemoglobin 11.8, platelets 756. Chemistry also reviewed and within normal limits. BNP is 1046. Total albumin is 3.0. Procalcitonin on admission is 0.05. IMAGING: Chest x-ray from admission shows bilateral moderate to large pleural effusions, symmetric. Chest CT shows pulmonary vascular congestion with interlobular septal thickening, suggesting pulmonary edema. Also moderate right greater than left bilateral pleural effusions. Small pericardial effusion. No pulmonary embolism. ASSESSMENT AND RECOMMENDATIONS: 1. Bilateral moderate to large pleural effusions. 2. Acute hypoxic respiratory failure on nasal cannula. 3. Recent stroke, syncope. 4. Atrial fibrillation--paroxysmal. 5. Likely decompensated diastolic heart failure. This complex 60-year-old woman is presenting with syncope and what appears to be a subsequent stroke. Interestingly she also has paroxysmal atrial fibrillation that is likely related to the stroke. Her echo shows dilated left atrium probably due to diastolic dysfunction. This is the most likely cause of her hypoxemia and bilateral symmetrical pleural effusions. I think her symptoms would be helped by a thoracentesis so I offered her this. She finally agreed. We did a right-sided thoracentesis with light reddish blood-tinged fluid return, about 1250 cc from the right. The patient tolerated the procedure fine. We sent the fluid for testing and a postprocedure chest x-ray is pending. She is going to be started on anticoagulation for her atrial fibrillation to prevent further stroke. I think since this procedure was done so late in the day today we should not do the second site tomorrow but give her break and probably do it on Saturday depending on how she does over the next day or so. I will check back tomorrow. Dr. Braun takes over the pulmonary service on Saturday.
--- NOTE | 2016-08-04 17:09 | PCM.PNMED ---
Subjective Date of Service Aug 04, 2016 Subjective 60 year old female with a recent diagnoses of carotid stenosis and left subclavian stenosis presents to the ER via EMS due to syncope and collapse that occurred just prior to arrival. Overnight, Ms. Crum today continues to have a cough and dyspnea. She also has a left- sided facial droop that her daughters noticed started last night around 9:00 PM , and her states that it has gotten worse this morning. Her daughters also noticed that her left side was weak, which has improved this morning. Exam Vital Signs Vital Sign - Last Date Time Temp Pulse Resp B/P Pulse Ox O2 Delivery O2 Flow Rate FiO2 08/04/16 12:30 36.8 109 24 132/70 95 Nasal Cannula 6.00 08/04/16 07:43 70 Intake and Output 08/03/16 08/03/16 08/04/16 Cumulative From/Thru 15:00 23:00 07:00 08/02/16 12:38 - 08/04/16 05:12 Intake Total 436 ml 0 ml 2536 ml Output Total 1300 ml 300 ml 2850 ml Balance -864 ml -300 ml -314 ml Intake Oral 436 ml 0 ml 536 ml IV Total 2000 ml Output Urine Total 1300 ml 300 ml 2850 ml # Bowel Movements 2 2 Exam General: Alert, Cooperative, No Acute Distress Head: Normal Eyes: Scleral Anicteric Nose: Mucous Membr Moist/Level [place] Mouth: Mucous Membr Moist/Level [place] Neck: Supple Chest & Lungs: Chest Wall Normal, Clear to auscultation & percussion, Other ( decreased bs at bases bilat) Cardiovascular: Regular Rate/Rhythm Pulses: NL carotid, radial, femoral, DP, PT Abdomen: Non-tender, Non-distended, Normoactive bowel tones, Soft Extremities: No cyanosis/clubbing/edma bilat Neurological: Left sided facial droop. Bilateral UE and LE muscle strength 5/ 5. Normal Speech, IVs and Medications Medications Reviewed: Medications were reviewed in detail Lab and Diagnostics Result Diagram: 08/04/1694408/04/16944 X-Rays, CTs and MRIs CTA chest 1. No evidence of pulmonary embolism. 2. Moderate bilateral pleural effusions a superimposed consolidations. The latter could represent atelectasis versus developing areas of pneumonia. 3. Mild appearance of increased pulmonary vascularity suggestive of edema. 4. Pericardial effusion. Dictated by: Meche Philip M.D. on 08/02/2016 at 16:53 PROCEDURE: CT BRAIN WITHOUT CONTRAST IMPRESSION: No acute intracranial disease process. Approved by: Jennifer Burroughs MD, PhD on 08/02/2016 at 14:47 PROCEDURE: X-RAY CHEST ONE VIEW, PORTABLE IMPRESSION: Bibasilar atelectasis versus aspiration or pneumonia. Correlate clinically. Approved by: Jennifer Burroughs MD, PhD on 08/02/2016 at 16:59 PROCEDURE: CT BRAIN WITHOUT CONTRAST IMPRESSION: Interval development of acute nonhemorrhagic ischemic insult involving the right frontal lobe. Findings discussed with Dr. Franco on 2116 hours on August 03, 2016. Approved by: Garrett Hay M.D. on 08/03/2016 at 21:18 PROCEDURE: CT ANGIO HEAD AND NECK NECK CT ANGIOGRAPHY: Vascular structures: Great vessels demonstrate conventional branching anatomy. The proximal great vessels are not well seen secondary to calcification and motion artifact. Innominate artery not well-seen at its origin secondary to vascular calcification. Possible high-grade innominate artery stenosis is present. Right subclavian artery demonstrate mild diffuse stenosis. Right vertebral artery origin not well-seen. Right vertebral artery otherwise is patent. Right common carotid artery is mildly diffusely stenotic as visualized, but is not well-seen at its origin. Right external carotid artery is moderately stenotic at its origin. Right internal carotid artery is mildly stenotic at its origin, it is otherwise patent. Left common carotid artery is not well-seen proximally, but demonstrate mild diffuse calcific stenosis. Moderate to high- grade calcific stenosis within the left mid common carotid artery. Left external carotid artery demonstrates high-grade origin stenosis. Left internal carotid artery demonstrates mild, roughly 30% origin stenosis. Left internal carotid arteries otherwise patent. Left subclavian artery not well-seen proximally, but demonstrates possible moderate diffuse stenosis. Left vertebral artery is patent as visualized. IMPRESSION: 1. Suboptimally visualized proximal great vessels and proximal right vertebral artery. 2. Mild bilateral internal carotid artery stenosis as described above. 3. Patent left vertebral artery. 4. Subacute right frontal lobe infarct. No acute intracranial abnormality. Approved by: Vj Uriarte M.D. on 08/04/2016 at 10:44 PROCEDURE: X-RAY CHEST ONE VIEW, PORTABLE IMPRESSION: 1. No complication following thoracentesis. 2. No change in left lung pneumonia and parapneumonic effusion. Continued plain film surveillance is recommended to ensure resolution, and to exclude underlying or central malignancy. Approved by: Vj Uriarte M.D. on 08/04/2016 at 15:50 12-lead ECG EKG shows atrial fibrillation with a rate of 134, QTC is read to be 518 ms but it does not appear that long to me. If in question recommend calculating by hand Cardiac Echo Impressions Echocardiogram Report Interpretation Summary The left ventricle is normal in size. Left ventricular systolic function is normal without focal wall motion abnormalities. The ejection fraction is estimated to be 60-65%. Assessment of diastolic parameters suggests a pseudonormalization pattern, consistent with elevated filling pressures. The right ventricle is normal in size and function. The right ventricular systolic pressure is estimated at 31 mmHg assuming a right atrial pressure of 3 mm Hg. The left atrium is severely dilated. The right atrium is mildly dilated. There is mild to moderate mitral regurgitation. There is moderate aortic regurgitation. There is mild to moderate aortic stenosis. The calculated aortic valve area is 1.4 cm2. There is mild to moderate tricuspid regurgitation. The aortic root is normal size. There is a large right-sided pleural effusion. There is a moderate left-sided pleural effusion. Reading Physician: PM Assessment & Plan 60 year old female with known history of left ICA stenosis and left subclavian stenosis presents to the ER via EMS due to syncope and collapse that occurred just prior to arrival. Medics arrived to find the patient confused, sitting on ground, with O2 saturation in the 80's, in atrial fibrillation which is new for the patient. Mental status seemed to improve with supplemental O2. It is noted that patient seemed to have vague left side weakness and variable HR in the field. arrived shortly after the medics, and informed them that the patient has had a cough for the past month, and was diagnosed with walking pneumonia 2 days earlier with directions to follow-up for CHF workup. Associated symptoms include fever for 10 days until starting antibiotics two days earlier, diarrhea since starting antibiotics, 8 lb weight gain over the past week. #Acute ischemic stroke, not present on admission. - CT scans as above show acute right frontal ischemia - Patient discussed with Romanian and patient was not a candidate for intervention. They recommended medical management including starting long-term anticoagulation like Pradaxa in addition to a full strength aspirin. They did not recommend waiting 2 weeks to start anticoagulation given smaller area of infarct . - Aspirin 325 mg once daily - Pradaxa 150 mg twice daily - Atorvastatin 80 mg daily - Speech therapy, OT, and PT # Bilateral pleural effusions due to CHF. suspect acute. present on admission. Likely secondary to CHF. - Thoracentesis today for right pleural effusion. Cytology and cultures pending. - Left thoracentesis on Saturday - Pulmonology consulted and following. Their time and recommendations are appreciated. # Acute diastolic CHF secondary to valvular heart disease and possibly to distant history of radiation therapy for Hodgkin's lymphoma - Echo as above - ruled out ACS by negative Trop - c/w IV Lasix started on admit - f/u I/O - Add an DILAN inhibitor, lisinopril 10 mg tomorrow. Monitor blood pressure. # Acute and new onset atrial fibrillation with rapid ventricular response, present on admission. Resolved - converted to sinus rhythm soon after admission - c/w Atenolol qhs - f/u on Tele - Anticoagulation as above # Acute syncope, prior to admission. - See acute ischemic stroke and atrial fibrillation above - ? if related to underlying subclavian stenosis / subclavian steal syndrome - will discuss w/ vs consult cardiology and ? need to transfer for further assessment by vascular surgery # Possible community-acquired pneumonia - will finish her course of Augmentin at this time # CAD. presumed stable for now - c/w outpatient cardiac meds # Hodgkin's lymphoma, in remission - chemotherapy and radiation in 1979 Dispo: 1-2 days pending above workup Attending Statement The patient was seen and examined together with Dr. Honeycutt on 08/04/2016 and I agree with the history, exam and plan as outlined in the note above. Criselda Honeycutt DO Aug 04, 2016 15:51 Hank Hdez MD Aug 05, 2016 06:50
[2016-08-04 18:11] LABS: BFWBC 2375 /mm3
[2016-08-04 18:39] LABS: MONOCYTES,BODY FLUID 23 %
[2016-08-04 18:40] LABS: OTHER CELLS,BODY FLUID 12
--- NOTE | 2016-08-04 19:38 | NUR ---
Nuero/Respiratory Pt. 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 Pt. was on high flow this morning but was put on 6L NC and is tolerating well. Pt. had a thoracentesis procedure this afternoon to her right side. Pt. is c/o pain of incision site and Tylenol was given, does not seem to be helping MD was made aware. Pt. has her own CPAP machine in the room that was brought in by a friend, RT was called to help assemble CPAP for patient.
[2016-08-04] MEDS: Omega-3 Fatty Acids 1,000 mg Capsule PO SCH (20:06)
[2016-08-04] MEDS: Dabigatran 150 mg Capsule PO SCH (21:49)
[2016-08-05] VITALS (9 sets, daily range): BP systolic 93–105; BP diastolic 49–61; PULSE 80–105; RESP 19–24; O2SAT 90–95
[2016-08-05 03:09] LABS: BASOPHILS % (AUTO) 0.2 % (0-3); EOSINOPHILS % (AUTO) 0.5 % (0-5); Mean Corpuscular Hemoglobin 32.1 pg (27.0-35.0); Mean Corpuscular Volume 98.2 fL (81-100); NEUTROPHILS % (AUTO) 81.7 % (40-74)
[2016-08-05 03:29] LABS: Platelet Count 715 bil/L (150-400)
--- NOTE | 2016-08-05 06:06 | DRSVH ---
PROCEDURE: X-RAY CHEST ONE VIEW, PORTABLE ([id number]) INDICATIONS: 60 year-old female with shortness of breath. TECHNIQUE: One view of the chest was acquired. COMPARISON: [facility], CR, XR CHEST 1VW (PORTABLE), 08/04/2016, 15:23. [facility], CR, XR CHEST 1VW (PORTABLE), 08/03/2016, 22:11. [facility], CR, XR CHEST 1VW (POR TABLE), 08/02/2016, 12:49. FINDINGS: Surgical changes and devices: Epigastric and left upper quadrant surgical clips are again noted. Lungs and pleura: Moderate to large dependent left pleural effusion persists. There is associated low er left lung airspace opacity. Right lung appears clear. No pneumothorax. Mediastinum: Mediastinal contours appear normal. Cardiac silhouette is partially obscured by left pl eural effusion. There is aortic atherosclerosis. Bones and chest wall: No suspicious bony lesions. Overlying soft tissues appear unremarkable. IMPRESSION: Persistent moderate to large left basal pleural effusion is of uncertain etiology, with presumed left lower lung compressive atelectasis. Superimposed pneumonia cannot be excluded. Dictated by: Garrett Hay M.D. on 08/05/2016 at 6:01 Approved by: Garrett Hay M.D. on 08/05/2016 at 6:04
--- NOTE | 2016-08-05 06:16 | NUR ---
Neuro/Respiratory A&Ox3, OLIVER, equal, strong bilateral upper extremity hollock maker. Slight facial droop noted. Patient short of breath at rest; SpO2 on 6L via nasal cannula 88% at start of shift. Switched to oxymask 8L and SpO2 to 92-94%. Breath sounds notably diminished. Provider paged; STAT chest x-ray completed. Continue close monitoring.
--- NOTE | 2016-08-05 09:39 | PCM.PNMED ---
Subjective Date of Service Aug 05, 2016 Subjective Overnight: Right thoracentesis was done yesterday. She reported dyspnea overnight due to pain on deep inspiration following right thoracentesis. CXR was negative for pneumothorax. Today: She continues to have pleuritic chest pain on exertion. She reports intermittent cough. Otherwise has no complaints; denies weakness, numbness, visual changes, or confusion. Exam Vital Signs Vital Sign - Last Date Time Temp Pulse Resp B/P Pulse Ox O2 Delivery O2 Flow Rate FiO2 08/05/16 05:35 Supplement Oxygen 08/05/16 05:25 105 08/05/16 04:14 36.7 19 105/55 95 9.00 08/04/16 07:43 70 Intake and Output 08/04/16 08/04/16 08/05/16 Cumulative From/Thru 15:00 23:00 07:00 08/02/16 12:38 - 08/05/16 05:24 Intake Total 550 ml 320 ml 3406 ml Output Total 620 ml 0 ml 3470 ml Balance -70 ml 320 ml -64 ml Intake Oral 550 ml 300 ml 1386 ml IV Total 20 ml 2020 ml Output Urine Total 620 ml 0 ml 3470 ml # Voids 1 0 1 # Bowel Movements 2 0 4 Exam General: Alert, Cooperative, No Acute Distress Head: Normal Eyes: Scleral Anicteric Nose: Mucous Membr Moist/Bantam Mouth: Mucous Membr Moist/[place]am Neck: Supple Chest & Lungs: Chest Wall Normal, Clear to auscultation & percussion, Other ( decreased bs at bases bilat) Cardiovascular: Regular Rate, tachycardic Pulses: NL carotid, radial, femoral, DP, PT Abdomen: Non-tender, Non-distended, Normoactive bowel tones, Soft Extremities: No cyanosis/clubbing/edma bilat Neurological: Left sided facial droop. Bilateral UE and LE muscle strength 5/ 5. Normal Speech, Lab and Diagnostics Result Diagram: 08/05/16 0300 08/05/16 0300 X-Rays, CTs and MRIs CTA chest 1. No evidence of pulmonary embolism. 2. Moderate bilateral pleural effusions a superimposed consolidations. The latter could represent atelectasis versus developing areas of pneumonia. 3. Mild appearance of increased pulmonary vascularity suggestive of edema. 4. Pericardial effusion. Dictated by: Meche Philip M.D. on 08/02/2016 at 16:53 PROCEDURE: CT BRAIN WITHOUT CONTRAST IMPRESSION: No acute intracranial disease process. Approved by: Jennifer Burroughs MD, PhD on 08/02/2016 at 14:47 PROCEDURE: X-RAY CHEST ONE VIEW, PORTABLE IMPRESSION: Bibasilar atelectasis versus aspiration or pneumonia. Correlate clinically. Approved by: Jennifer Burroughs MD, PhD on 08/02/2016 at 16:59 PROCEDURE: CT BRAIN WITHOUT CONTRAST IMPRESSION: Interval development of acute nonhemorrhagic ischemic insult involving the right frontal lobe. Findings discussed with Dr. Franco on 2116 hours on August 03, 2016. Approved by: Garrett Hay M.D. on 08/03/2016 at 21:18 PROCEDURE: CT ANGIO HEAD AND NECK NECK CT ANGIOGRAPHY: Vascular structures: Great vessels demonstrate conventional branching anatomy. The proximal great vessels are not well seen secondary to calcification and motion artifact. Innominate artery not well-seen at its origin secondary to vascular calcification. Possible high-grade innominate artery stenosis is present. Right subclavian artery demonstrate mild diffuse stenosis. Right vertebral artery origin not well-seen. Right vertebral artery otherwise is patent. Right common carotid artery is mildly diffusely stenotic as visualized, but is not well-seen at its origin. Right external carotid artery is moderately stenotic at its origin. Right internal carotid artery is mildly stenotic at its origin, it is otherwise patent. Left common carotid artery is not well-seen proximally, but demonstrate mild diffuse calcific stenosis. Moderate to high- grade calcific stenosis within the left mid common carotid artery. Left external carotid artery demonstrates high-grade origin stenosis. Left internal carotid artery demonstrates mild, roughly 30% origin stenosis. Left internal carotid arteries otherwise patent. Left subclavian artery not well-seen proximally, but demonstrates possible moderate diffuse stenosis. Left vertebral artery is patent as visualized. IMPRESSION: 1. Suboptimally visualized proximal great vessels and proximal right vertebral artery. 2. Mild bilateral internal carotid artery stenosis as described above. 3. Patent left vertebral artery. 4. Subacute right frontal lobe infarct. No acute intracranial abnormality. Approved by: Vj Uriarte M.D. on 08/04/2016 at 10:44 PROCEDURE: X-RAY CHEST ONE VIEW, PORTABLE IMPRESSION: 1. No complication following thoracentesis. 2. No change in left lung pneumonia and parapneumonic effusion. Continued plain film surveillance is recommended to ensure resolution, and to exclude underlying or central malignancy. Approved by: Vj Uriarte M.D. on 08/04/2016 at 15:50 12-lead ECG EKG shows atrial fibrillation with a rate of 134, QTC is read to be 518 ms but it does not appear that long to me. If in question recommend calculating by hand Cardiac Echo Impressions Echocardiogram Report Interpretation Summary The left ventricle is normal in size. Left ventricular systolic function is normal without focal wall motion abnormalities. The ejection fraction is estimated to be 60-65%. Assessment of diastolic parameters suggests a pseudonormalization pattern, consistent with elevated filling pressures. The right ventricle is normal in size and function. The right ventricular systolic pressure is estimated at 31 mmHg assuming a right atrial pressure of 3 mm Hg. The left atrium is severely dilated. The right atrium is mildly dilated. There is mild to moderate mitral regurgitation. There is moderate aortic regurgitation. There is mild to moderate aortic stenosis. The calculated aortic valve area is 1.4 cm2. There is mild to moderate tricuspid regurgitation. The aortic root is normal size. There is a large right-sided pleural effusion. There is a moderate left-sided pleural effusion. Reading Physician: PM Assessment & Plan Patient is a 60 year old female with history of left ICA stenosis and left subclavian stenosis, Hodgkin lymphoma, and recent treatment for possible pneumonia who presented with syncope and collapse that occurred just prior to arrival. Admitted for acute ischemic stroke, bilateral pleural effusions, acute CHF exacerbation, and new onset afib. 1. Acute ischemic stroke, not present on admission. - CT scans as above show acute right frontal ischemia - Discussed with [place] and patient was not a candidate for intervention. They recommended medical management including starting long-term anticoagulation like Pradaxa in addition to a full strength aspirin. They did not recommend waiting 2 weeks to start anticoagulation given smaller area of infarct. Because of her high risk of re-embolization, she was started on a heparin drip. - Aspirin 325 mg once daily - Heparin drip - Switch to Pradaxa after thoracentesis Saturday - Atorvastatin 80 mg daily - Speech therapy, OT, and PT 2. Bilateral Exudative pleural effusions due to CHF. suspect acute. present on admission. Likely secondary to CHF. Fluid analysis showed elevated lymphocytes ( 55%). Given her history of Hodgkin lymphoma, there is concern for recurrent cancer or new lung cancer. CT angio 08/02 showed bilateral pleural effusions. Consider repeat CT chest with contrast after left thoracentesis to rule out mass. - Right thoracentesis on 08/04/16. Appears to be exudative effusion based on elevated total protein (ratio 0.56). - Left thoracentesis by IR ordered on Saturday .hold heparin in am - Pulmonology consulted and following. Their time and recommendations are appreciated. - Oxycodone q4h PRN and ibuprofen 400 mg q6h PRN chest pain (s/p thoracentesis) -follow up cytology 3. Acute diastolic CHF secondary to valvular heart disease and possibly to distant history of radiation therapy for Hodgkin's lymphoma - Echo as above. Ruled out ACS by negative Troponin. - Continue IV Lasix 40 mg daily - I/O, daily standing weights. - Considering adding lisinopril when BP is improved. 4. Acute and new onset atrial fibrillation with rapid ventricular response, present on admission. Resolved - Converted to sinus rhythm soon after admission - Continue Atenolol 20 mg PO qhs - Monitor Tele - Heparin drip. 5. Acute syncope, prior to admission. - Likely secondary to acute ischemic stroke, but there is question if related to underlying subclavian stenosis / subclavian steal syndrome 6. Possible community-acquired pneumonia - Will finish her course of Augmentin at this time 7. CAD. presumed stable for now - c/w outpatient cardiac meds 8. Hodgkin's lymphoma, in remission - chemotherapy and radiation in 1979 Dispo: Likely 2+ days given planned thoracentesis tomorrow and likely requiring further workup. Attending Statement The patient was seen and examined together with Dr. Reyna on 08/05/2016 and I agree with the history, exam and plan as outlined in the note above. Stevenson Reyna Aug 05, 2016 09:39 Hank Hdez MD Aug 05, 2016 15:13
[2016-08-05] MEDS: Amoxicillin-Clav 875-125 mg Tablet PO SCH ×2 (09:53→20:00)
[2016-08-05] MEDS: RESTASIS BOTH_EYES SCH ×2 (09:54→20:01)
[2016-08-05] MEDS: Dabigatran 150 mg Capsule PO SCH (09:54)
[2016-08-05] MEDS: Furosemide 10 mg/mL 4 mL Inj IVPUSH SCH (09:55)
[2016-08-05] MEDS: Heparin 25K Unit/500mL 0.45 NS 25,000 UNIT in IV Premix 1 EACH IV SCH (13:04)
--- NOTE | 2016-08-05 14:56 | PROG NOTE ---
[address] [address] PROGRESS NOTE PATIENT: EVELIA BINGHAM : 1955 MR#: [id number] ADMIT: 08/02/2016 JOB ID: [id number] DATE: 08/05/2016 PULMONARY PROGRESS NOTE: The patient is a 60-year-old woman admitted with paroxysmal atrial fibrillation, syncope versus stroke and hypoxic respiratory failure, with bilateral large pleural effusions. INTERVAL HISTORY: She underwent uneventful thoracentesis on the right yesterday with removal of approximately 1250 cc of bloody fluid yesterday. Since that time, she has had pleuritic chest pain and she says it continues to bother her every time she takes a breath. She has also been short of breath and actually her oxygen requirement has gone up to 8 L. REVIEW OF SYSTEMS: No fevers, chills. PHYSICAL EXAMINATION: Vital signs reviewed. Temperature 36.7, pulse 96, respirations 24, BP 105/61, sats 95% on 9 L OxyMask. General: Pale, chronically ill-appearing woman in no distress. Chest: Decreased breath sounds on the left, residential up the lung field. Crackles on the right base. LABORATORIES: Reviewed. WBC up to 15.6, hemoglobin 10.5, platelets 715. Chemistry also reviewed. Fluid analysis shows 2300 white cells, 20,000 red cells, pH 7.5. LDH elevated at 188. Pleural fluid protein of 4. Glucose of 128. Cultures and cytology are still pending and negative to date. Chest x-ray postprocedure shows complete resolution of right pleural effusion. She had a 2nd chest x-ray later that day that shows minimal right basilar atelectasis but no reaccumulation of fluid. There is still a persistent moderate to large left pleural effusion. ASSESSMENT AND RECOMMENDATIONS: 1. Acute hypoxic respiratory failure on 9 L OxyMask. 2. Pleuritic right chest pain. 3. Exudative right pleural effusion, status post thoracentesis August 04. 4. Persistent left pleural effusion. 5. Paroxysmal atrial fibrillation. 6. Recent stroke/syncope. 7. Suspected decompensated diastolic heart failure. Complex 60-year-old woman presenting with syncope and stroke with neurologic deficit and evidence of paroxysmal atrial fibrillation. She has bilateral symmetric pleural effusions that are most likely due to decompensated heart failure. Thoracentesis was done yesterday and uncomplicated, but she is having significant pleuritic chest pain post thoracentesis. I suspect this is from pleural inflammation rather than a complication of the procedure itself. The fluid was clearly exudative based on both protein and LDH which is surprising for fluid secondary to heart failure. Certainly, none of the infection parameters seem to be abnormal, but I remain concerned about a [id number] etiology for this including malignancy or infection. We will wait and see what the other results show since her procalcitonin is still negative, but if the patient continues to get worse then I would strongly consider antibiotics. She needs a thoracentesis on the left as well, but it looks like she got a dose of Pradaxa last night instead of heparin drip. I spoke to Dr. Hdez and he is going to switch her over to a heparin drip. We should try to do a thoracentesis on the left side tomorrow since she is still very hypoxic and symptomatic. The heparin drip needs to be held 6 hours prior. I am not sure if Dr. Braun will be able to assist in this matter so please consider having Radiology do it under ultrasound guidance and check with Dr. Braun tomorrow morning to see if he has time to supervise the procedure instead.
--- NOTE | 2016-08-05 15:31 | NUR ---
Evaluation completed/discharge to nsg Please go to "Notes" then click on "Assessments and Notes" (bottom left corner of screen). Then select appropriate discipline tab on top of screen. approp to be up with nsg with SBA; no further PT indicated; encourage OOB to chair for meals; amb BID-TID as migue
--- NOTE | 2016-08-05 16:14 | NUR ---
Social Work: Continued Discharge Planning Professor Of Religious Studies met with patient to obtain the name of the pharmacy she uses in the community to obtain a quote for pradaxa. Patient reported that her pharmacy is [facility] and social science professor faxed prescription to obtain garcia. Sindhu at [facility] quoted the garcia of [phone]. SW notified patient and patient's attending. Patient stated that she is ble to purchase the the medication. SW will continue to follow. Nahomy Mejia LMSW, ACM
--- NOTE | 2016-08-05 19:00 | NUR ---
Heparin Drip/Neuro/Respiratory Pt. started on heparin drip this afternoon. Pts. neuro unchanged from yesterday and throughout shift today, Pt. follows command well, equal splitter tender strength and is able to communicate with no difficulties. Pt. stated this morning every time she breaths, her right lower side where the thoracentesis took place hurts. Pt. also states when she coughs she feels "something move inside my lungs". Pt. at this time is in bed resting comfortably with family in room.
[2016-08-05] MEDS: Omega-3 Fatty Acids 1,000 mg Capsule PO SCH (20:00)
[2016-08-06] VITALS (11 sets, daily range): BP systolic 82–118; BP diastolic 45–84; PULSE 84–113; RESP 18–24; O2SAT 92–94
[2016-08-06 05:38] LABS: BASOPHILS % (AUTO) 0.6 % (0-3); EOSINOPHILS % (AUTO) 3.6 % (0-5); MONOCYTES % (AUTO) 14.6 % (4-12); NEUTROPHILS % (AUTO) 70.5 % (40-74); Platelet Count 795 bil/L (150-400)
--- NOTE | 2016-08-06 06:17 | NUR ---
Heparin/Pain Patient on heparin drip; drip titrated to 850 units/hour. PTT of 48 at 0600. Drip placed on hold per orders pending thoracentesis later today. Patient reports pain is well controlled, 2-3/10 right sided back and chest discomfort. Roxicodone 2.5 mg given once with good result. Continue to monitor.
[2016-08-06] MEDS: RESTASIS BOTH_EYES SCH ×2 (09:25→20:41)
[2016-08-06] MEDS: Amoxicillin-Clav 875-125 mg Tablet PO SCH ×2 (09:26→20:39)
[2016-08-06] MEDS: Furosemide 10 mg/mL 4 mL Inj IVPUSH SCH (09:26)
--- NOTE | 2016-08-06 13:40 | PCM.PNMED ---
Subjective Date of Service Aug 06, 2016 Subjective Overnight: Heparin was put on hold during the night in preparation for a thoracentesis being performed this morning. However, the thoracentesis was put on hold due to her having taken Prodaxa within the last 72 hours. Last dose was given at 0954 yesterday 08/05. Overnight, patient reports right-sided rib pain that improved with Roxicodone. This morning: patient admits to fatigue, but no one-sided weakness. She has sharp pleuritic chest pain where the right thoracentesis took place. Her facial droop seems to improve as well. She was cleared by PT and can ambulate independently. She admits to poor appetite, but denies dysphagia or slurred speech. No other complaint. Exam Vital Signs Vital Sign - Last Date Time Temp Pulse Resp B/P Pulse Ox O2 Delivery O2 Flow Rate FiO2 08/06/16 12:18 37.1 104 22 98/58 93 OxyMask 10.00 08/04/16 07:43 70 Intake and Output 08/05/16 08/05/16 08/06/16 Cumulative From/Thru 15:00 23:00 07:00 08/02/16 12:38 - 08/06/16 05:52 Intake Total 956 ml 442 ml 4804 ml Output Total 445 ml 3915 ml Balance 511 ml 442 ml 889 ml Intake Oral 870 ml 250 ml 2506 ml IV Total 86 ml 192 ml 2298 ml Output Urine Total 445 ml 3915 ml # Voids 1 # Bowel Movements 1 5 Exam General: Alert, Cooperative, No Acute Distress Head: Normal Eyes: EOMI. Scleral Anicteric Mouth: Mucous Membr Moist/[place] Neck: Supple Chest & Lungs: Chest Wall Normal, Clear to auscultation & percussion, Decreased lung sound at bilateral bases, worse on the left. Cardiovascular: Regular Rate/Rhythm. III/ systolic murmur at the apex. Abdomen: Non-tender, Non-distended, Normoactive bowel tones, Soft Extremities: No cyanosis/clubbing/edma bilat Neurological: Mild left sided facial droop (most significantly on the left eyebrow). Cranial nerve II-XII intact. Bilateral UE and LE muscle strength 5/5. Sensation to light touch intact. Normal Speech. IVs and Medications Medications Reviewed: Medications were reviewed in detail Lab and Diagnostics Result Diagram: 08/06/1630 08/06/16 0530 X-Rays, CTs and MRIs CTA chest 1. No evidence of pulmonary embolism. 2. Moderate bilateral pleural effusions a superimposed consolidations. The latter could represent atelectasis versus developing areas of pneumonia. 3. Mild appearance of increased pulmonary vascularity suggestive of edema. 4. Pericardial effusion. Dictated by: Meche Philip M.D. on 08/02/2016 at 16:53 PROCEDURE: CT BRAIN WITHOUT CONTRAST IMPRESSION: No acute intracranial disease process. Approved by: Jennifer Burroughs MD, PhD on 08/02/2016 at 14:47 PROCEDURE: X-RAY CHEST ONE VIEW, PORTABLE IMPRESSION: Bibasilar atelectasis versus aspiration or pneumonia. Correlate clinically. Approved by: Jennifer Burroughs MD, PhD on 08/02/2016 at 16:59 PROCEDURE: CT BRAIN WITHOUT CONTRAST IMPRESSION: Interval development of acute nonhemorrhagic ischemic insult involving the right frontal lobe. Findings discussed with Dr. Franco on 2116 hours on August 03, 2016. Approved by: Garrett Hay M.D. on 08/03/2016 at 21:18 PROCEDURE: CT ANGIO HEAD AND NECK NECK CT ANGIOGRAPHY: Vascular structures: Great vessels demonstrate conventional branching anatomy. The proximal great vessels are not well seen secondary to calcification and motion artifact. Innominate artery not well-seen at its origin secondary to vascular calcification. Possible high-grade innominate artery stenosis is present. Right subclavian artery demonstrate mild diffuse stenosis. Right vertebral artery origin not well-seen. Right vertebral artery otherwise is patent. Right common carotid artery is mildly diffusely stenotic as visualized, but is not well-seen at its origin. Right external carotid artery is moderately stenotic at its origin. Right internal carotid artery is mildly stenotic at its origin, it is otherwise patent. Left common carotid artery is not well-seen proximally, but demonstrate mild diffuse calcific stenosis. Moderate to high- grade calcific stenosis within the left mid common carotid artery. Left external carotid artery demonstrates high-grade origin stenosis. Left internal carotid artery demonstrates mild, roughly 30% origin stenosis. Left internal carotid arteries otherwise patent. Left subclavian artery not well-seen proximally, but demonstrates possible moderate diffuse stenosis. Left vertebral artery is patent as visualized. IMPRESSION: 1. Suboptimally visualized proximal great vessels and proximal right vertebral artery. 2. Mild bilateral internal carotid artery stenosis as described above. 3. Patent left vertebral artery. 4. Subacute right frontal lobe infarct. No acute intracranial abnormality. Approved by: Vj Uriarte M.D. on 08/04/2016 at 10:44 PROCEDURE: X-RAY CHEST ONE VIEW, PORTABLE IMPRESSION: 1. No complication following thoracentesis. 2. No change in left lung pneumonia and parapneumonic effusion. Continued plain film surveillance is recommended to ensure resolution, and to exclude underlying or central malignancy. Approved by: Vj Uriarte M.D. on 08/04/2016 at 15:50 12-lead ECG EKG shows atrial fibrillation with a rate of 134, QTC is read to be 518 ms but it does not appear that long to me. If in question recommend calculating by hand Cardiac Echo Impressions Echocardiogram Report Interpretation Summary The left ventricle is normal in size. Left ventricular systolic function is normal without focal wall motion abnormalities. The ejection fraction is estimated to be 60-65%. Assessment of diastolic parameters suggests a pseudonormalization pattern, consistent with elevated filling pressures. The right ventricle is normal in size and function. The right ventricular systolic pressure is estimated at 31 mmHg assuming a right atrial pressure of 3 mm Hg. The left atrium is severely dilated. The right atrium is mildly dilated. There is mild to moderate mitral regurgitation. There is moderate aortic regurgitation. There is mild to moderate aortic stenosis. The calculated aortic valve area is 1.4 cm2. There is mild to moderate tricuspid regurgitation. The aortic root is normal size. There is a large right-sided pleural effusion. There is a moderate left-sided pleural effusion. Reading Physician: PM Assessment & Plan Patient is a 60 year old female with history of left ICA stenosis and left subclavian stenosis, Hodgkin lymphoma, and recent treatment for possible pneumonia who presented with syncope and collapse that occurred just prior to arrival. Admitted for acute ischemic stroke, bilateral pleural effusions, acute CHF exacerbation, and new onset afib. 1. Acute ischemic stroke, not present on admission. - CT scans as above show acute right frontal ischemia - Discussed with [place] and patient was not a candidate for intervention. They recommended medical management including starting long-term anticoagulation like Pradaxa in addition to a full strength aspirin. They did not recommend waiting 2 weeks to start anticoagulation given smaller area of infarct. Because of her high risk of re-embolization, she was started on a heparin drip. - Aspirin 325 mg once daily - Continue Heparin drip. Will hold it 2 hours before the thoracentesis, which will likely be Saturday. - Switch to Pradaxa after thoracentesis Saturday. - Atorvastatin 80 mg daily - Follow with Speech therapy and OT. PT cleared the patient. 2. Bilateral Exudative pleural effusions due to CHF. suspect acute. present on admission. - Likely secondary to CHF. Fluid analysis showed elevated lymphocytes (55%). Given her history of Hodgkin lymphoma, there is concern for recurrent cancer or new lung cancer. CT angio 08/02 showed bilateral pleural effusions. Consider repeat CT chest with contrast after left thoracentesis to rule out mass. - Right thoracentesis on 08/04/16. Appears to be exudative effusion based on elevated total protein (ratio 0.56) and LDH. - Left thoracentesis by IR ordered for today, thus heparin was hold last night. However, radiology stated that per protocol, they cannot perform thoracentesis for 72 hours after Pradaxa was administered. - she is having significant pleuritic chest pain post thoracentesis. suspect this is from pleural inflammation rather than a complication of the procedure itself. - Pulmonology consulted and following. Their time and recommendations are appreciated. - Oxycodone q4h PRN and ibuprofen 400 mg q6h PRN chest pain (s/p thoracentesis) - follow up cytology - Will likely need to order infectious analysis of the pleural fluid after the left thoracentesis. 3. Acute diastolic CHF secondary to valvular heart disease and possibly to distant history of radiation therapy for Hodgkin's lymphoma - Echo as above. Ruled out ACS by negative Troponin. - Continue IV Lasix 40 mg daily - I/O, daily standing weights. - Lisinopril started yesterday 08/05. 4. Acute and new onset atrial fibrillation with rapid ventricular response, present on admission. Resolved - Converted to sinus rhythm soon after admission - D/c Atenolol 20 mg PO qhs and switched to Metoprolol 12.5mg BID. - Monitor Tele - Heparin drip. 5. Acute syncope, prior to admission. - Likely secondary to acute ischemic stroke, but there is question if related to underlying subclavian stenosis / subclavian steal syndrome 6. Possible community-acquired pneumonia - Will finish her course of Augmentin at this time. First dose started on 08/02 evening (3.5 days so far) 7. CAD. presumed stable for now - c/w outpatient cardiac meds 8. Hodgkin's lymphoma, in remission - chemotherapy and radiation in 1979 Dispo: Likely 2+ days given planned thoracentesis on Saturday and likely requiring further workup. Pain Evaluation: Adequate Pain Control VTE Prophylaxis: Sub-Q Heparin (Unfractionated) Resuscitation Status: CPR: Attempt Resuscitation Attending Statement The patient was seen and examined together with Dr. Khanna on 08/06/2016 and I agree with the history, exam and plan as outlined in the note above. . Dianne Khanna DO Aug 06, 2016 13:39 Yamil Celeste MD Aug 07, 2016 07:53
[2016-08-06] MEDS ORDERED: MELA3TAB35 PO (18:24)
--- NOTE | 2016-08-06 19:16 | NUR ---
Heparin Her heparin was put on hold during the night in preparation for a thoracentesis being performed today. The thoracentesis was put on hold due to her having taken Prodaxa within the last [address] Baez and Dr. Celeste of this at 0940 in morning rounds and asked if she should be put back on the heparin drip. Was told that they would discuss the thoracentesis with radiology before deciding. Discussed this again with Dr. Khanna at 1250 and 1410. The resident team was still working on discussing her plan of care with radiology at those times and had not made a final decision. Spoke with Dr. Baez again later who said to go ahead and place her back on the heparin drip with the previous settings of 850 units/hour. It was started at 1540. Next PTT heparin lab draw is scheduled at 2200. family coach notified. Care continues.
[2016-08-06] MEDS: Omega-3 Fatty Acids 1,000 mg Capsule PO SCH (20:40)
[2016-08-06] MEDS: Heparin 25K Unit/500mL 0.45 NS 25,000 UNIT in IV Premix 1 EACH IV SCH (23:39)
[2016-08-06] MEDS: Heparin 5,000 Unit/mL Inj IVPUSH PRN (23:39)
[2016-08-07] VITALS (11 sets, daily range): BP systolic 84–125; BP diastolic 48–87; PULSE 91–132; RESP 20–24; O2SAT 92–96
[2016-08-07] MEDS ORDERED: Digoxin 0.25 mg/mL 2 mL Inj IV ONE (00:20)
--- NOTE | 2016-08-07 01:10 | NUR ---
Afib/ hypotension. increased 02 demands. Pt HR noted to be high and variable. Per traffic monitor specialist Tele converted to Afib 1teans-140s. STAT EKG ordered and confirmed rhythm. BP at this time noted to be hypotensive low 80s/40s. Pt was previously on 10 L oxymask and sating mid 90s was not titrated up to 15L and was maintain a sat in the high 80s. Pt asymptomatic- states she feels slight fluttering in her chest but denies and SOB or discomfort. Night resident Dr. Jenkins made aware, at bedside to assess pt. order received for IVP of Digoxon. Med given- Tele currently Afib 90-low 100. Sp02 increased to mid 90s. and BP 96/53. Will continue to monitor.
[2016-08-07 04:56] LABS: BASOPHILS % (AUTO) 0.7 % (0-3); EOSINOPHILS % (AUTO) 3.1 % (0-5); Mean Corpuscular Hemoglobin 32.1 pg (27.0-35.0); Mean Corpuscular Volume 97.1 fL (81-100); NEUTROPHILS % (AUTO) 68.7 % (40-74); Platelet Count 814 bil/L (150-400)
[2016-08-07] MEDS: Heparin 5,000 Unit/mL Inj IVPUSH PRN (05:17)
[2016-08-07] MEDS: Furosemide 10 mg/mL 4 mL Inj IVPUSH SCH (08:30)
[2016-08-07] MEDS: Amoxicillin-Clav 875-125 mg Tablet PO SCH ×2 (08:47→20:13)
[2016-08-07] MEDS: RESTASIS BOTH_EYES SCH ×2 (08:48→20:13)
--- NOTE | 2016-08-07 10:18 | PCM.PNMED ---
Subjective Date of Service Aug 07, 2016 Subjective Overnight: Multiple issues. Patient's heart rate noted to be high and variable. Tele converted to Afib 110s-140s. STAT EKG ordered and confirmed rhythm. Patient was also hypotensive low 80s/40s. Her Oxygen demand increased from 10L to 15L to maintain a sat in the high 80s. Patient reports slight fluttering in her chest and some substernal pressure but denies SOB or discomfort. Digoxin was administered. Afib has been in the 90s-100s. This morning: patient reports that she usually has low BP and high HR. She complains of some substernal chest pain that could be due to the cough. She reports improvement of the right-sided chest pain. Patient reports poor appetite and is frustrated about the delay in thoracentesis and the afib. She would like to be transfer to [place] for a second opinion. Exam Vital Signs Vital Sign - Last Date Time Temp Pulse Resp B/P Pulse Ox O2 Delivery O2 Flow Rate FiO2 08/07/16 08:32 Supplement Oxygen 08/07/16 08:32 36.3 113 20 89/51 92 13.00 08/04/16 07:43 70 Intake and Output 08/06/16 08/06/16 08/07/16 Cumulative From/Thru 15:00 23:00 07:00 08/02/16 12:38 - 08/07/16 05:43 Intake Total 850 ml 332 ml 5986 ml Output Total 900 ml 550 ml 5365 ml Balance -50 ml -218 ml 621 ml Intake Oral 850 ml 150 ml 3506 ml IV Total 182 ml 2480 ml Output Urine Total 900 ml 550 ml 5365 ml # Voids 1 # Bowel Movements 1 0 6 Exam General: Alert, cooperative, no Acute Distress Head: Normal, atraumatic Eyes: EOMI. Scleral Anicteric, conjunctival pallor Mouth: Mucous Membrane dry Neck: Supple Chest & Lungs: Chest Wall Normal, Almost no lung sound on the left side except at the apex. Decreased lung sound at right lung base. Cardiovascular: Irregular irregular. II/ systolic murmur. Abdomen: Non-tender, Non-distended, Normoactive bowel tones, Soft Extremities: No cyanosis/clubbing/edma bilat Neurological: Mild left sided facial droop (most significantly on the left eyebrow). Cranial nerve II-XII intact. Bilateral UE and LE muscle strength 5/5. Sensation to light touch intact. Normal Speech. IVs and Medications Medications Reviewed: Medications were reviewed in detail Lab and Diagnostics Result Diagram: 08/07/1643408/07/16434 X-Rays, CTs and MRIs CTA chest 1. No evidence of pulmonary embolism. 2. Moderate bilateral pleural effusions a superimposed consolidations. The latter could represent atelectasis versus developing areas of pneumonia. 3. Mild appearance of increased pulmonary vascularity suggestive of edema. 4. Pericardial effusion. Dictated by: Meche Philip M.D. on 08/02/2016 at 16:53 PROCEDURE: CT BRAIN WITHOUT CONTRAST IMPRESSION: No acute intracranial disease process. Approved by: Jennifer Burroughs MD, PhD on 08/02/2016 at 14:47 PROCEDURE: X-RAY CHEST ONE VIEW, PORTABLE IMPRESSION: Bibasilar atelectasis versus aspiration or pneumonia. Correlate clinically. Approved by: Jennifer Burroughs MD, PhD on 08/02/2016 at 16:59 PROCEDURE: CT BRAIN WITHOUT CONTRAST IMPRESSION: Interval development of acute nonhemorrhagic ischemic insult involving the right frontal lobe. Findings discussed with Dr. Franco on 2116 hours on August 03, 2016. Approved by: Garrett Hay M.D. on 08/03/2016 at 21:18 PROCEDURE: CT ANGIO HEAD AND NECK NECK CT ANGIOGRAPHY: Vascular structures: Great vessels demonstrate conventional branching anatomy. The proximal great vessels are not well seen secondary to calcification and motion artifact. Innominate artery not well-seen at its origin secondary to vascular calcification. Possible high-grade innominate artery stenosis is present. Right subclavian artery demonstrate mild diffuse stenosis. Right vertebral artery origin not well-seen. Right vertebral artery otherwise is patent. Right common carotid artery is mildly diffusely stenotic as visualized, but is not well-seen at its origin. Right external carotid artery is moderately stenotic at its origin. Right internal carotid artery is mildly stenotic at its origin, it is otherwise patent. Left common carotid artery is not well-seen proximally, but demonstrate mild diffuse calcific stenosis. Moderate to high- grade calcific stenosis within the left mid common carotid artery. Left external carotid artery demonstrates high-grade origin stenosis. Left internal carotid artery demonstrates mild, roughly 30% origin stenosis. Left internal carotid arteries otherwise patent. Left subclavian artery not well-seen proximally, but demonstrates possible moderate diffuse stenosis. Left vertebral artery is patent as visualized. IMPRESSION: 1. Suboptimally visualized proximal great vessels and proximal right vertebral artery. 2. Mild bilateral internal carotid artery stenosis as described above. 3. Patent left vertebral artery. 4. Subacute right frontal lobe infarct. No acute intracranial abnormality. Approved by: Vj Uriarte M.D. on 08/04/2016 at 10:44 PROCEDURE: X-RAY CHEST ONE VIEW, PORTABLE IMPRESSION: 1. No complication following thoracentesis. 2. No change in left lung pneumonia and parapneumonic effusion. Continued plain film surveillance is recommended to ensure resolution, and to exclude underlying or central malignancy. Approved by: Vj Uriarte M.D. on 08/04/2016 at 15:50 PROCEDURE: X-RAY CHEST ONE VIEW, PORTABLE IMPRESSION: 1. Bilateral effusions, left greater than right and persistent consolidation consistent with compressive atelectasis versus pneumonia. Dictated by: Louis OLIVEIRA Interpreted: Mcehe Philip MD on 08/07/2016 at 16: 11 Transcribed by: RASHEED on 08/07/2016 at 16:12 PROCEDURE: US CHEST/PLEURAL SONOGRAM IMPRESSION: Small right and moderate left pleural effusion with low level echoes within the left effusion and hemorrhagic products cannot be excluded. Dictated by: Louis OLIVEIRA Interpreted: Jennifer Burroughs MD on 08/07/2016 at 15:32 Transcribed by: RONY on 08/07/2016 at 15:33 12-lead ECG EKG shows atrial fibrillation with a rate of 134, QTC is read to be 518 ms but it does not appear that long to me. If in question recommend calculating by hand Cardiac Echo Impressions Echocardiogram Report Interpretation Summary The left ventricle is normal in size. Left ventricular systolic function is normal without focal wall motion abnormalities. The ejection fraction is estimated to be 60-65%. Assessment of diastolic parameters suggests a pseudonormalization pattern, consistent with elevated filling pressures. The right ventricle is normal in size and function. The right ventricular systolic pressure is estimated at 31 mmHg assuming a right atrial pressure of 3 mm Hg. The left atrium is severely dilated. The right atrium is mildly dilated. There is mild to moderate mitral regurgitation. There is moderate aortic regurgitation. There is mild to moderate aortic stenosis. The calculated aortic valve area is 1.4 cm2. There is mild to moderate tricuspid regurgitation. The aortic root is normal size. There is a large right-sided pleural effusion. There is a moderate left-sided pleural effusion. Reading Physician: PM Assessment & Plan Patient is a 60 year old female with history of left ICA stenosis and left subclavian stenosis, Hodgkin lymphoma, and recent treatment for possible pneumonia who presented with syncope and collapse that occurred just prior to arrival. Admitted for acute ischemic stroke, bilateral pleural effusions, acute CHF exacerbation, and new onset afib. 1. Bilateral Exudative pleural effusions due to CHF. suspect acute. present on admission. - Likely secondary to CHF. Fluid analysis showed elevated lymphocytes (55%). Given her history of Hodgkin lymphoma, there is concern for recurrent cancer or new lung cancer. CT angio 08/02 showed bilateral pleural effusions. Consider repeat CT chest with contrast after left thoracentesis to rule out mass. - Right thoracentesis on 08/04/16. Appears to be exudative effusion based on elevated total protein (ratio 0.56) and LDH. Pleuritic chest pain post thoracentesis improved. Suspect this is from pleural inflammation rather than a complication of the procedure itself. - Oxycodone q4h PRN and ibuprofen 400 mg q6h PRN chest pain (s/p thoracentesis) - follow up cytology - Left thoracentesis cannot be done due to Pradaxa administration on 08/05. Literature suggesting wait72 hours after last administration of Pradaxa. Plan for left-sided thoracentesis by IR tomorrow morning. - Repeat CXR today showed bilateral effusions, left greater than right and persistent consolidation. Chest U/S showed small right and moderate left pleural effusion with low level echoes within the left effusion and hemorrhagic products cannot be excluded. - Per patient's transfer request, the case was discussed with [place], who did not accept the transfer. - Will likely need to order pleural fluid analysis after the left thoracentesis. - Will need to run the case of oncology given patient's history of Hodgkin's lymphoma. - Pulmonology consulted and following. Their time and recommendations are appreciated. 2. Hypotension, not present on admision, likely acute on chronic. - Patient reports normally low BP, which worsened due to dehydration and large pleural collections. - NS 1000ml @100ml/hr given. - Continue to monitor vital signs. 3. Acute ischemic stroke, not present on admission, improving. - CT scans as above show acute right frontal ischemia - Discussed with [place] and patient was not a candidate for intervention. They recommended medical management including starting long-term anticoagulation like Pradaxa in addition to a full strength aspirin. They did not recommend waiting 2 weeks to start anticoagulation given smaller area of infarct. Because of her high risk of re-embolization, she was started on a heparin drip. - Aspirin 325 mg once daily - Continue Heparin drip. Will hold it at 4am tomorrow to prepare for the thoracentesis. - Switch back to Pradaxa after thoracentesis Saturday. - Continue Atorvastatin 80 mg daily - Swallow was within normal limit per speech. She also has normal functional and strength per PT. Continue to follow up with OT. 4. Acute diastolic CHF secondary to valvular heart disease and possibly to distant history of radiation therapy for Hodgkin's lymphoma - Echo as above. Ruled out ACS by negative Troponin. - Discontinue IV Lasix 40 mg daily due to hypotension - Lisinopril started on 08/05. Will hold as well due to hypotension. - I/O, daily standing weights. 5. Acute and new onset atrial fibrillation with rapid ventricular response, present on admission. Resolved - Converted to sinus rhythm soon after admission - Home Atenolol was switched to Metoprolol 12.5mg BID for better rate control yesterday 08/06, but patient converted to Afib overnight. Metoprolol was d/c and start Diltiazem ggt. - Monitor Tele - Heparin drip. - Patient request to have Cardiology involved. Will discuss with on-call security chief museum tomorrow. 6. Acute syncope, prior to admission. - Likely secondary to acute ischemic stroke, but there is question if related to underlying subclavian stenosis / subclavian steal syndrome 7. Possible community-acquired pneumonia - Will finish her course of Augmentin at this time. First dose started on 08/02 evening (3.5 days so far) 8. CAD. presumed stable for now - c/w outpatient cardiac meds 9. Hodgkin's lymphoma, in remission - chemotherapy and radiation in 1979 - Will call oncology tomorrow. Dispo: Likely 2+ days given planned thoracentesis on Saturday and likely requiring further workup. Pain Evaluation: Adequate Pain Control VTE Prophylaxis: Sub-Q Heparin (Unfractionated) Resuscitation Status: CPR: Attempt Resuscitation Attending Statement The patient was seen and examined together with Dr. Khanna on 08/08/2015 and I agree with the history, exam and plan as outlined in the note above. . Dianne Khanna DO Aug 07, 2016 10:18 Yamil Celeste MD Aug 09, 2016 17:40
[2016-08-07] MEDS ORDERED: 0.9% Sodium Chloride 1,000 ML IV SCH (10:45)
[2016-08-07] MEDS: Diltiazem Inj 125 MG in 0.9% Sodium Chloride 100 ML, Pharmacy To Mix 1 EA IV SCH (13:25)
--- NOTE | 2016-08-07 13:55 | PROG NOTE ---
[address] [address] PROGRESS NOTE PATIENT: EVELIA BINGHAM : 1955 MR#: [id number] ADMIT: 08/02/2016 JOB ID: [id number] DATE: 08/07/2016 PROBLEM: 1. Bilateral pleural effusions. 2. Atrial fibrillation. 3. Dyspnea. SUBJECTIVE: Called by hospitalist team for increasing dyspnea. The patient's O2 requirement apparently increased from 8 L/minute to 13 L/minute. She is now satting in the mid 90s. In addition, atrial fibrillation was poorly controlled with a heart rate in the mid 130s. Planning on starting diltiazem. The patient indicates right now that she is breathing relatively comfortably. Has some cough. Nonproductive though was sounds somewhat wet. She says on occasion she brings up a bit of phlegm but swallows it. Had some right lower lateral chest wall pain sounding somewhat pleuritic in nature but that has improved markedly, essentially resolved. OBJECTIVE: Temperature 36.3, pulse 104, respiratory rate 20, blood pressure varies between 89/51 to 120/63. O2 sat on OxyMask at 13 L is running in the mid 90s, somewhere between 94%. General appearance: Comfortable appearing. Lying in bed with head of the bed elevated maybe between 15 and 30 degrees. Breathing easily. Speaking easily. Eyes: Conjunctivae are pink. Trachea midline. Chest: There is dullness to percussion about two-thirds of the way up the right lung, about alf up the left lung. Essentially absent breath sounds in those areas with fairly clear breath sounds in the right apex and left mid and upper lung michael with maybe a few crackles in the left mid lung field. No use of accessory muscles. No chest wall tenderness. Patient localizes her chest pain to the area of the right lower lateral rib. Heart: Rapid rate. Irregular rhythm, constantly changing between about 101 and 133. Abdomen soft. Nondistended. Nontender. Liver and spleen not palpable. No masses palpable. Bowel tones present. Extremities: No cyanosis. No pretibial edema. LABORATORY DATA: On pleural fluid, tapped August 04, 2016, shows 2374 white cells, of which 11% are polys, 55 lymphocytes, 23% monocytes, no eosinophils, no basophils. Fluid RBCs is 20,250. Pleural fluid pH 7.5. Pleural fluid LDH 188 with serum LDH of 238, upper limits of normal being 190. Pleural fluid total protein is 4 with a serum pleural fluid total protein of 6.2. The patient currently on heparin infusion with a PTT of 56 seconds. Of note is that the patient received Pradaxa on Saturday night at about 10:00 and again Saturday morning about 10:00. Was subsequently started on a heparin drip. Stat chest x-ray shows a large pleural effusion on the right with a moderate to good-sized pleural effusion on the left, pretty much unchanged from August 04, 2016, where as on August 04, 2016, there was a small effusion on the right with blunting of the right costophrenic angle. Maybe a small effusion on the right which did not appear to be there 7 hours previously after thoracentesis. No evidence of pneumothorax. Laboratory values show a hemoglobin of 11.2, unchanged from 10.7 yesterday, white count of 10,200 with 68 polymorphonuclears, 12 lymphocytes, 15 monocytes, 3 eosinophils. Platelet count 814,000 and slightly rising. Sodium 131, potassium 4.2, chloride 93, CO2 is 26, BUN 13, creatinine 0.45. Calcium 8.7. Total bilirubin normal at 0.3. AST mildly elevated 69, ALT mildly elevated 65, alkaline phos normal at 80. Total protein 6.2, albumin 2.7. Gram stain of pleural fluid shows no polys, no organisms. There has been no growth after 48 hours. ASSESSMENT: Pleural effusion. There has been rather rapid recurrence of pleural effusion on the right. Whether this represents malignancy, possibly hemorrhage is unclear. Patient is relatively comfortable at the present time though she has increased oxygen requirements. Discussed with her problem presenting to us. There is risk of bleeding after Pradaxa administration, with literature suggesting one wants to wait 2-1/2 to 3-1/2 days after last administration of Pradaxa when five half lives would have passed. Alternatively, we could consider idarucizumab (Praxbind) if we felt this was life-threatening. Currently she seems to be relatively stable. Plan was to repeat the ultrasound to make sure this represents pleural fluid. Do not think we are dealing with atelectasis of the lung, but that would also be possible, though seems a bit unlikely. Discussed the situation with her and in the presence of her daughter. When we started to talk about increasing risks the patient expressed her concern about a second opinion and preferably a transfer to [facility] for a second opinion and further care. Informed the primary physicians regarding the patient's concerns and wishes, and they will facilitate patient's desire for a transfer to [facility] or other facilities of the patient's choice.
--- NOTE | 2016-08-07 14:43 | NUR ---
Social Work Note: Continued Discharge Planning Data& Assessment: EMR reviewed. Per Md pt is not medically ready for discharge at this time. Pt is on high flow 02. GEOVANY met with pt at bedside to assess for any unmet needs and check in, SW role explained. SW phone number provided on pt white board. Pt explained she is in the process of being transferred to another hospital. SW inquired if this was for medical necessity or if they were requesting the transfer. Pt explained she and her family are requesting to be transferred to [facility] for continued care. Pt did not explain why they were wanting to transfer. SW offered phone number for pt experience community administrator to express any questions or concerns, pt declined. Pt declined any needs from SW at this time, pt family stated they do not anticipate any needs from SW as they "will be transferred soon." Administration and MD notified. SW to continue to follow. Plan: Pt discharge needs are unclear at this time. SW to continue to follow for MD and PT recommendations and whether or not pt is transferred to another hospital. Pt and pt family denies any other needs at this time. SW to continue to follow. ELIU Barillas
--- NOTE | 2016-08-07 15:34 | DRSVH ---
PROCEDURE: US CHEST/PLEURAL SONOGRAM INDICATIONS: Increased SOB COMPARISON: None. FINDINGS: Small right and moderate left pleural effusion. Low level echoes visualized within the le ft pleural effusion. IMPRESSION: Small right and moderate left pleural effusion with low level echoes within the left eff usion and hemorrhagic products cannot be excluded. Dictated by: Louis Ly A Interpreted: Jennifer Burroughs MD on 08/07/2016 at 15:32 Transcribed by: RONY on 08/07/2016 at 15:33 Approved by: Jennifer Burroughs MD, PhD on 08/08/2016 at 11:00
--- NOTE | 2016-08-07 16:12 | DRSVH ---
PROCEDURE: X-RAY CHEST ONE VIEW, PORTABLE ([id number]) INDICATIONS: dyspnea TECHNIQUE: One view of the chest was acquired. COMPARISON: [facility], CR, XR CHEST 1VW (PORTABLE), 08/04/2016, 22:09. FINDINGS: Surgical changes and devices: Surgical clips present in the upper abdomen. Lungs and pleura: Moderate left and small right pleural effusion redemonstrated and persistent bibasi lar consolidation. No pneumothorax. Mediastinum: Mediastinal contours appear normal. Heart size is normal. Bones and chest wall: No suspicious bony lesions. Overlying soft tissues appear unremarkable. IMPRESSION: 1. Bilateral effusions, left greater than right and persistent consolidation consistent with compress josey atelectasis versus pneumonia. Dictated by: Louis OLIVEIRA Interpreted: Meche Philip MD on 08/07/2016 at 16:11 Transcribed by: RASHEED on 08/07/2016 at 16:12 Approved by: Meche Philip M.D. on 08/09/2016 at 16:15
--- NOTE | 2016-08-07 19:22 | NUR ---
Transfer Request, Today's Care and Events Noted that her blood pressure this morning was 89/51 (asymptomatic), had only 100 ml output during the night, telemetry: atrial fibrillation 110s, had converted from sinus rhythms to A-fib during the night, had also increased O2 need during the night from 10L to 15L, had continued poor appetite and low oral fluid intake. Notified Dr. Khanna at 0920 who said she would discuss the case with the senior resident. Also notified Dr. Baez at 0940 in morning rounds who said she would also look into it. Normal saline at 100 mls/hour was ordered along with a Cardizem drip at 5 mg/hour. Her blood pressure leveled out to 110s/80s and she converted from A-fib to sinus rhythm 100s at 1648. When Dr. Braun assessed and spoke with the patient today she expressed concern about getting a second opinion in another hospital such as [facility]. Dr. Braun said that was just fine and that he would discuss this with Dr. Celeste to see what could be done. One of the residents following Dr. Braun pointed out that he thought her daughter was videoing the conversation on her phone which (not confirmed). There was some confusion as first as to why she had made this transfer request, but in talking to her further, after Dr. Braun had left, she expressed anxiety at the recent loss of her mother in the summer. She said that about 14-15 years ago her mother had a major stroke which could have been "prevented" by medical practice administrator. As a result, she lost her ability to communicate. Both her daughter and her seemed visibly anxious about another mistake being made and even expressed that they were "nervous" and "scared." Social work, risk management, the unit assistant, and Dr. Celeste all spoke to her today. Per Dr. Celeste, [facility] was called, but because her transfer is not mandated by medical necessity they would not be able to accept her at this time. After talking with Dr. Celeste she was still nervous, but agreeable to staying the night and having the thoracentesis performed in the morning. Once performed and some of the test results come back she said she will re-evaluate her desire to transfer and her care will be adjusted as necessary. Just a few moments ago, her primary care provider (Dr. Crane) came to visit her and asked for a medical update which was given. She and another lady are currently in the room talking with the patient. assistant shift supervisor notified. Care continues.
[2016-08-07] MEDS: Omega-3 Fatty Acids 1,000 mg Capsule PO SCH (20:13)
[2016-08-08] VITALS (11 sets, daily range): BP systolic 101–128; BP diastolic 42–57; PULSE 75–97; RESP 18–26; O2SAT 90–94
[2016-08-08] MEDS: 0.9% Sodium Chloride 1,000 ML IV SCH ×2 (00:27→12:27)
[2016-08-08] MEDS: Heparin 25K Unit/500mL 0.45 NS 25,000 UNIT in IV Premix 1 EACH IV SCH (00:27)
[2016-08-08 04:45] LABS: BASOPHILS % (AUTO) 0.6 % (0-3); EOSINOPHILS % (AUTO) 4.4 % (0-5); MONOCYTES % (AUTO) 13.6 % (4-12); Mean Corpuscular Hemoglobin 31.9 pg (27.0-35.0); Mean Corpuscular Volume 97.4 fL (81-100); NEUTROPHILS % (AUTO) 65.5 % (40-74); Platelet Count 774 bil/L (150-400)
--- NOTE | 2016-08-08 05:17 | NUR ---
Cardiac: Tele SR 70-low 100s. Pt denies any pain. sp02 maintained on 5-7 L oxymask. Dilt gtt continues at 5 ml/hr. Heparin gtt shut off @ 0330. Care ongoing.
[2016-08-08] MEDS: RESTASIS BOTH_EYES SCH ×2 (08:17→22:09)
[2016-08-08] MEDS: Amoxicillin-Clav 875-125 mg Tablet PO SCH (08:17)
[2016-08-08 09:59] LABS: INR 0.94 ratio
--- NOTE | 2016-08-08 11:39 | PCM.CHPCAR ---
Consult Subjective Date of service Aug 08, 2016 Date of admit Aug 02, 2016 at 18:13 Provider Requesting Consult Primary Care Physician Primary Care Provider: Elizabeth Ann MD Chief Complaint syncope History of Present Illness Nataliia Crum 60-year-old woman normally followed by cardiology in [place] with past cardiac history significant for aortic valvular disease, left carotid stenosis and left subclavian stenosis that experienced a syncopal event on August 02 at her home and was found by paramedics to be hypoxic while in atrial fibrillation with RVR. She was later found to have stroke like symptoms with left-sided weakness. She has no known history of atrial fibrillation. She does have a history of sleep apnea and has used a CPAP over the last 3 years. She had a cardiac stress test and angiogram done some years ago. Records pending at time of dictation. Evaluation in the hospital showed bilateral pleural effusions (large right-sided moderate left-sided) CAT scan of the chest showed no PE, bilateral effusions, possible pericardial effusion and suggestive of pulmonary edema. CT of the brain showed right frontal lobe nonhemorrhagic ischemic insult. Possibly remote. Neck angiogram was significant for moderate to high-grade stenosis of the left mid common carotid, common carotid with high- grade proximal stenosis. Echocardiogram on 08/03/2016 showed EF of 60-65% with pseudonormalization pattern consistent with elevated filling pressures. No focal wall motion abnormalities, LV normal size and function. RV was normal size and function. RV systolic pressure 31 mmHg the right atrium is not pressure 3 mmHg. The left atrium was severely dilated, right atrium mildly dilated. Was mild to moderate MR, moderate aortic regurgitation, mild to moderate (valve area 1.4 cm, 2.21 m/s, gradient 11.9.) Mild to moderate TR. Review of Systems Review of Systems #General-general fatigue and weakness noted for several weeks with associated pneumonia, weight gain of approximately 8 pounds in the last 2 weeks despite decreased appetite. Recent fever and chills. #HEENT-previous issue with headaches now gone, recurring intermittent blurred vision for weeks, fleeting. No sore throat or sinus congestion. No hearing problems. #Neck-denies swollen glands or difficulty swallowing #Chest-positive cough, nonproductive, no hemoptysis, denies dyspnea. #Cardiovascular-admits to intermittent palpitations but denies chest pain. Occasional lightheaded dizziness. One recent syncopal event associated with this admission otherwise none. #GI-long history of constipation. Denies melena or hematochezia, focal abdominal pain. #-denies vaginal discharge or lower abdominal pain urinary urgency or frequency. #Neurologic- occasional positional tingling in bilateral hands no focal weakness. #Psychiatric-treated with Prozac for depression since the of her last child, well controlled #Endocrine-weight gain of 8 pounds in the last week or 2, no night sweats. History of thyroid disease. #Integument-denies rash or lesion, has some itchiness behind her neck and shoulder. PMH Past Medical History Non-Hodgkin's lymphoma in remission since Aortic insufficiency PVCs, Peripheral vascular disease- left subclavian stenosis, left carotid stenosis Guillain Cooter syndrome Past Surgical History Appendectomy Splenectomy Fibroid tumors Bedside Blood Glucose: 189 Scheduled Amoxicillin/Clav K 875-125 mg (Augmentin 875-125 mg) 1 Each Tablet 1 TABLET PO BID (Reported) Has taken 3 days worth Aspirin (Aspirin) 81 Mg Tablet 81 MG PO HS (Reported) Atenolol (Atenolol) 25 Mg Tablet 25 MG PO HS (Reported) Atorvastatin (Lipitor) 80 Mg Tablet 80 MG PO HS (Reported) Cyclosporine (Restasis) 1 Each Droperette 1 EACH OP BID (Reported) Patient own med, pt informed will need to bring in Fish Oil/Dha/Epa (Fish Oil 1,200 mg Fish Oil) 1 Each Capsule 1 EACH PO HS ( Reported) Fluoxetine (Prozac) 20 Mg Capsule 20 MG PO DAILY (Reported) Levothyroxine (Levothyroxine) 137 Mcg Tablet 137 MCG PO QAM (Reported) Melatonin (Melatonin) 3 Mg Tablet 3-5 MG PO HS (Reported) Multivit with Calcium,Iron,Min (Therapeutic M) 1 Each Tablet 1 EACH PO DAILY ( Reported) Ubidecarenone (Coenzyme Q-10) 200 Mg Capsule 200 MG PO DAILY (Reported) Scheduled PRN Calcium Carbonate (Tums) 500 Mg Tab.chew 500-1,000 MG PO QID PRN PRN acid reflux (Reported) Famotidine (Famotidine) 20 Mg Tablet 20 MG PO BID PRN PRN acid reflux (Reported ) Ibuprofen (Ibuprofen) 400 Mg Tablet 400 MG PO QID PRN PRN For Pain (Reported) Discontinued Medications Aspirin Chew (Aspirin Chew) 81 Mg Chew 81 MG PO DAILY (Reported) Current Inpatient Medications Current Medications Metoprolol Tartrate 12.5 mg BID PO Last administered on 08/06/16 20:41; Admin Dose 12.5 MG; Start 08/06/16 at 20:30; Stop 08/07/16 at 10:46; Status DC Melatonin 5 mg 5 mg HS PRN PO Last administered on 08/07/16 21:29; Admin Dose 5 MG; Start 08/06/16 at 19:05 Sodium Chloride 1,000 ml @ 100 mls/hr Q10H IV Last administered on 08/07/16 12: 31; Admin Dose 100 MLS/HR; Start 08/07/16 at 10:45; Stop 08/07/16 at 20:44; Status DC Diltiazem HCl 125 mg/Sodium Chloride/ Miscellaneous 125 ml @ 5 mls/hr Q24H IV Last administered on 08/07/16 13:25; Admin Dose 5 MLS/HR; Start 08/07/16 at 10:45 Sodium Chloride 1,000 ml @ 100 mls/hr Q10H IV Last administered on 08/08/16 00: 27; Admin Dose 100 MLS/HR; Start 08/08/16 at 00:25 Allergies: Coded Allergies: No Known Allergies (Unverified , 08/02/16) Family History Family History Father IN age 38 Mother- afib, CVA age 72 in her 80's Social History 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 Alcohol Use: Yes (hasn't had anything last couple weeks )Alcoholic Drinks Per Day: 1-2 glass of wine a dayHx Substance Use: NoHx Tobacco Use: No Smoking Status: Never Smoker Living Arrangement: with Family Exam Vital Signs Vital Sign - Last Date Time Temp Pulse Resp B/P Pulse Ox O2 Delivery O2 Flow Rate FiO2 08/08/16 11:25 78 08/08/16 08:06 36.8 20 128/46 92 OxyMask 7.00 08/04/16 07:43 70 Intake and Output 08/07/16 08/07/16 08/08/16 Cumulative From/Thru 15:00 23:00 07:00 08/02/16 12:38 - 08/08/16 05:28 Intake Total 1677 ml 1217 ml 8880 ml Output Total 300 ml 400 ml 6065 ml Balance 1377 ml 817 ml 2815 ml Intake Oral 840 ml 200 ml 4546 ml IV Total 837 ml 1017 ml 4334 ml Output Urine Total 300 ml 400 ml 6065 ml # Voids 1 # Bowel Movements 0 6 Objective #General-apparent distress sitting quietly lying relatively flat with multiple pillows. #HEENT-eyes clear PERRLA, pharynx benign, buccal mucosa moist, tongue midline slightly rolled towards left but normally mobile #Neck-supple without tenderness or adenopathy, thyroid benign. #Chest- lungs sound somewhat distal posteriorly no wheezes or rales. Wheezing easily using O2 mask. No retractions, JVP 5-6 no edema. #Cardiovascular- regular rate and rhythm, soft diastolic and systolic murmurs over aortic area #GI-soft nontender without apparent mass #-deferred #Neurologic-alert and oriented 4, cranial nerves II through XII appear intact. No significant focal weakness is appreciated though not specifically tested. #Psychiatric-spirits are good and mood is appropriate for situation #Integument-benign Lab and Diagnostics Result Diagram: 08/08/1634408/08/16344 X-Rays, CTs and MRIs Chest CT No PE, bilateral effusions. Pericardial effusion, suggestive of pulmonary edema. CT of the brain right frontal lobe nonhemorrhagic ischemic insult. Neck angiogram suboptimal study, moderate to high-grade calcific stenosis of the left mid common carotid. Roxanol left common carotid with high-grade stenosis. Echocardiogram- EF 60-65%, pseudonormalization pattern consistent with elevated filling pressures. No focal wall motion abnormalities, LV normal in size and function. RV normal size and function. RV systolic pressure 31 mmHg, assuming right atrial pressures 3 mmHg. Left atrium is severely dilated, right atrium is mildly dilated, mild to moderate MR, mild to moderate (valve area 1.4 cm, 2.21 m/s, gradient 11.9.) moderate aortic regurgitation, mild to moderate TR. Large right-sided pleural effusion, moderate left sided pleural effusion. Assessment & Plan Assessment Nataliia Crum is a 60-year-old woman with past medical history significant for aortic insufficiency/aortic stenosis, left carotid stenosis and left subclavian stenosis, non-Hodgkin's lymphoma (remission since ) that had an episode of cough syncopy. Nonhemorrhagic stroke in the setting of atrial fibrillation with RVR likely related to sleep apnea. She normally sees cardiology up in [place]. She remembers remote cardiac stress test and angiogram. Records are not available at time of this dictation. Patient's workup at the hospital thus far has also been significant for bilateral pleural effusions (large right sided moderate left-sided). Patient was initially heparinized and this was held for thoracentesis. Atrial fibrillation rate was controlled with diltiazem where she converted yesterday afternoon approximately 5 PM. Telemetry review shows recurring AF approximately 8: 25 this morning for brief period with heart rate around 100 bpm. She has been in sinus rhythm for the rest of the day. # Afib with RVR. Patient has converted to sinus rhythm. Convert to oral medications. Her [id number] score is 3( 1 for female, 2 for stroke) and warrants ongoing oral anticoagulation. As he be started per hospitalist when appropriate post thoracentesis. Patient to follow-up with her slimer up in [place] for rate control and anticoagulation. # Bilateral moderate to large pleural effusion question etiology. Patient just had thoracentesis hospitalist follow up results. #Nonhemorrhagic stroke- likely due secondary to paroxysmal atrial fibrillation as related to sleep apnea.. #Valvular heart disease- aortic insufficiency and aortic stenosis, mild to moderate MR, mild to moderate TR. Patient to follow with cardiology in [place] #Pericardial effusion-on CT, appears more trivial on echocardiogram. #Thrombocytosis-etiology is unclear. Hospitalist follow. # Hypothyroidism ( on Synthroid) consider TSH, T4. # Sleep apnea- Continue with Cpap Pain Evaluation: Adequate Pain Control VTE Prophylaxis: Sub-Q Heparin (Unfractionated) Resuscitation Status: CPR: Attempt Resuscitation Yamil Cano PA-C Aug 08, 2016 11:39
--- NOTE | 2016-08-08 12:02 | ABG ---
DateTimeAnalyzed 11:53:00 -_ pH ____7.428 - FIO2 ___21.0__ -% Drawn By as - Date/Time Notified____ 12:02:00 -_ Notified By ams - Notified Whom dr mulligan -
--- NOTE | 2016-08-08 12:18 | DRSVH ---
PROCEDURE: X-RAY CHEST ONE VIEW ([id number]) INDICATIONS: POST THORACENTESIS TECHNIQUE: One view of the chest was acquired. COMPARISON: [facility], CR, XR CHEST 1VW (PORTABLE), 08/07/2016, 11:12. FINDINGS: Surgical changes and devices: Left upper quadrant surgical clips are present. Lungs and pleura: No pneumothorax. Decreased, small left pleural effusion. No change in small right pleural effusion. Moderate left perihilar and bibasilar airspace opacity is unchanged. Mediastinum: Mediastinal contours appear normal. Heart size is normal. Bones and chest wall: No suspicious bony lesions. Overlying soft tissues appear unremarkable. IMPRESSION: 1. No complication following left-sided thoracentesis. 2. No change in multifocal pneumonia. Dictated by: Vj Uriarte M.D. on 08/08/2016 at 12:16 Approved by: Vj Uriarte M.D. on 08/08/2016 at 12:17
[2016-08-08] MEDS: Diltiazem Inj 125 MG in 0.9% Sodium Chloride 100 ML, Pharmacy To Mix 1 EA IV SCH (12:27)
[2016-08-08 12:44] LABS: TOTAL PROTEIN,PLEURAL FLUID 3.6 g/dL
[2016-08-08 13:03] LABS: BFWBC 3640 /mm3; MONOCYTES,BODY FLUID 30 %; OTHER CELLS,BODY FLUID 0
--- NOTE | 2016-08-08 13:37 | DRSVH ---
PROCEDURE: US ABDOMEN INDICATIONS: Increasing LFT's TECHNIQUE: Real-time scanning was performed of the abdominal and retroperitoneal organs, with image documentatio n. COMPARISON: None. FINDINGS: Liver length: 14.06 cm Gallbladder Wall Thickness: 2.60 mm CHD: 2.30 mm Right kidney length: 12.78 cm Left kidney length: 11.17 cm Aorta(Proximal): 1.71 cm Aorta(Mid): 1.42 cm Aorta(Distal): 1.31 cm RCIA: 9.80 mm LCIA: 8.90 mm Liver: Liver is normal in size and homogeneous in echotexture. Gallbladder: Normal gallbladder. Biliary ducts: Intrahepatic bile ducts are non-dilated. Extrahepatic bile duct caliber is normal. Normal is 6-7 mm or less in diameter, or 10 mm or less post-cholecystectomy. Pancreas: Not well-seen. Spleen: Absent. Kidneys: Kidneys are normal in size and echotexture. No hydronephrosis or nephrolithiasis. No cecilio d masses. Aorta: Visualized aorta is normal in caliber at less than 3 cm. Iliacs: Proximal common iliac arteries are normal in caliber at less than 2.5 cm. IVC: Intrahepatic inferior vena cava is patent. Miscellaneous: No free abdominal fluid. Bilateral pleural effusions. IMPRESSION: Bilateral pleural effusions. Dictated by: Louis OLIVEIRA Interpreted: Yanci Glaser MD on 08/08/2016 at 13:35 Transcribed by: BRANDI on 08/08/2016 at 13:36 Approved by: Yanci Glaser M.D. on 08/08/2016 at 16:47
--- NOTE | 2016-08-08 14:29 | DRSVH ---
PROCEDURE: US GUIDED THORACENTESIS BY REFERRING PHYSICIAN ([id number]) INDICATIONS: left thoracentesis TECHNIQUE: The indications, alternatives, benefits, risks, and complications of the procedure were explained to the patient. Written informed consent was obtained and placed in the chart. The chest was examined sonographically, and an appropriate site was chosen for thoracentesis. The skin was prepared and zoya ped in the usual sterile fashion, and 1% lidocaine was infiltrated from the skin down through the ple ural surface. A 19-gauge catheter-covered needle was then introduced into the pleural space, the cat heter was advanced and the needle was withdrawn, and thereafter pleural fluid was aspirated. The cat heter was then removed and a dressing was applied. The attending physician was present, and personal ly performed the procedure. COMPARISON: None. FINDINGS: Access site: Left hemithorax. Needle: One-Step centesis catheter with introducer needle. Fluid volume and description: Thousand 50 cc of slightly bloody tinged pleural fluid Fluid sent for diagnostic testing: Fluid sent for cytology, multiple chemistry panels and therapeuti c drainage. Medications: 1% lidocaine for local anaesthesia. Complications: None; post-procedural chest radiograph is pending to assess for pneumothorax. IMPRESSION: Successful ultrasound-guided thoracentesis. Dictated by: Louis OLIVEIRA Interpreted: Jennifer Burroughs MD on 08/08/2016 at 14:27 Transcribed by: RONY on 08/08/2016 at 14:28 Approved by: Jennifer Burroughs MD, PhD on 08/08/2016 at 17:37
[2016-08-08] MEDS ORDERED: Heparin 5,000 Unit/mL Inj IVPUSH PRN (15:30)
[2016-08-08] MEDS ORDERED: Diltiazem Inj 125 MG in 0.9% Sodium Chloride 100 ML, Pharmacy To Mix 1 EA IV SCH (15:49)
--- NOTE | 2016-08-08 16:18 | CONS ---
[address] [address] CONSULTATION REPORT PATIENT: EVELIA BINGHAM : 1955 MR#: [id number] ADMIT: 08/02/2016 JOB ID: [id number] DATE OF SERVICE: 08/08/2016 CARDIOLOGY CONSULTATION: REQUEST BY: Dr. Yamil Celeste REASON FOR EVALUATION: Atrial fibrillation. I saw and examined the patient. Please see Yamil Cano's note for details. HISTORY: The patient is a 60-year-old lady with history of hypercholesterolemia. She has known coronary artery disease, left subclavian stenosis and carotid artery stenosis being followed by director learning in [place], Dr. Petersen. The patient was in her usual state of health until last when she went hiking for 6 miles with her daughter. She has not been feeling well for the past three months with occasional headache and dizzy. She had a dry cough for the past three weeks with fever and chills. She lost her appetite. On the day of admission, August 02, 2016, she passed out while she was standing. There was no witness. She hurt the back of her head. There was no warning. She denies any chest discomfort or shortness of breath at that time. She was coughing. She was found to be in paroxysmal atrial fibrillation with the longest episode last for 20 hours since admission. His CT on August 04, 2016 show subacute right frontal lobe infarct. Mild bilateral internal carotid artery stenosis. PAST MEDICAL HISTORY: 1. Coronary artery disease. 2. Left subclavian artery stenosis. 3. Mild bilateral carotid artery stenosis. 4. History of Hodgkin lymphoma when she was young treated with radiation and chemotherapy. 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 6. Obstructive sleep apnea on CPAP. 7. Hypercholesterolemia. MEDICATIONS PRIOR TO HOSPITALIZATION: Was reviewed. ALLERGIES: No known allergies. SOCIAL HISTORY: She lives with her in a house in [place]. She has never smoked. Occasional alcohol. FAMILY HISTORY: Her father from heart attack at age 38. Her mother from atrial fibrillation and cerebrovascular accident. REVIEW OF SYSTEMS: All 10 systems are reviewed and noncontributory. She sleeps on three pillows. She has been using CPAP for the past three years. PHYSICAL EXAMINATION: Reveals a pleasant, middle-aged lady, appearing in no acute distress. Temperature is 36.6. Blood pressure is 117/42. Pulse 85. Body weight is 60.5 kg. Head and face have normal configuration. Anicteric sclerae. Moist mucosa. Neck supple. No jugular venous distention or carotid bruits. Chest normal expansion. Her lung sounds are diminished. Heart: The first and second heart sounds are diminished. Grade 2/6 systolic ejection murmur at the left upper sternal border radiates to her neck. Grade 1/6 holosystolic murmur at the apex. Abdomen is soft, nontender. Extremities: No clubbing, cyanosis or edema. Neurologic: Grossly intact. Echocardiogram on August 03, 2016 showed normal left ventricular size with ejection fraction 60%-65%. Grade 2 diastolic dysfunction. Severely dilated left atrium. Mild-to- moderate mitral regurgitation. Moderate aortic regurgitation. Mbcg-wu-schrkuby aortic stenosis. Fecq-lk-tnbcxgjn tricuspid regurgitation. Bilateral pleural effusion. IMPRESSION: 1. Paroxysmal atrial fibrillation, currently in sinus rhythm. 2. Syncope on August 04, 2016, most likely due to cough syncope. 3. Known coronary artery disease, left subclavian artery stenosis and mild bilateral carotid artery stenosis. 4. Hyperlipidemia. 5. Aortic stenosis, aortic regurgitation, mitral regurgitation, and tricuspid regurgitation. PLAN: I had a lengthy discussion with the patient and her daughter. I explained to her that the most likely cause of her syncope for this patient is likely due to cough syncope. It is likely that her atrial fibrillation will recur in view of her severely dilated left atrium, valvular heart disease, sleep apnea, and aging. I will plan for rate control and chronic anticoagulation at this time. The patient requests to be referred to Dr. Liu, director learning at [facility] after she was discharged from the hospital as he is recommended to her by her niece who is a nurse in [place]. [facility]
[2016-08-08] MEDS ORDERED: MeTOProlol 1 mg/mL 5 mL Inj IVPUSH PRN (17:30)
--- NOTE | 2016-08-08 17:59 | PCM.PNMED ---
Subjective Date of Service Aug 08, 2016 Subjective Overnight: Patient converted to sinus rhythm 70-low 100s early this morning and has remained in sinus rhythm in the 80s. Blood pressure has been stable as well. Sp02 maintained on 5-7 L oxymask. Diltiazem gtt continues at 5 ml/hr. Heparin gtt turned off at 0330 for AM procedure. Patient slept well and had no other issue. Today: patient reports to feel the same, not better or worse. She denies any significant chest pain, SOB, or headache. She is anxious about the thoracentesis , which will be around 10am this morning. Patient has been walking to the bathroom, but has not moved around much. No other complaint. Last BM was 08/06. Voiding with no difficulty. Exam Vital Signs Vital Sign - Last Date Time Temp Pulse Resp B/P Pulse Ox O2 Delivery O2 Flow Rate FiO2 08/08/16 04:02 77 08/08/16 03:22 36.9 18 124/44 93 OxyMask 7.00 08/04/16 07:43 70 Intake and Output 08/07/16 08/07/16 08/08/16 Cumulative From/Thru 15:00 23:00 07:00 08/02/16 12:38 - 08/08/16 05:28 Intake Total 1677 ml 1217 ml 8880 ml Output Total 300 ml 400 ml 6065 ml Balance 1377 ml 817 ml 2815 ml Intake Oral 840 ml 200 ml 4546 ml IV Total 837 ml 1017 ml 4334 ml Output Urine Total 300 ml 400 ml 6065 ml # Voids 1 # Bowel Movements 0 6 Exam (Exam was done prior to the thoracentesis) General: Alert, cooperative, no Acute Distress, fatigue/pale-looking Head: Normal, atraumatic Eyes: EOMI. Scleral Anicteric, conjunctival pallor Mouth: Mucous Membrane dry Neck: Supple Chest & Lungs: Chest Wall Normal, Almost no lung sound on the left side except at the apex. Decreased lung sound at right lung base. Cardiovascular: Regular rate and rhythm. Soft systolic murmur. Abdomen: Soft, Non-tender, Non-distended, Normoactive bowel tones. Extremities: No cyanosis/clubbing/edma bilat Neurological: Mild left eyebrow droop. Cranial nerve II-XII intact. Bilateral UE and LE muscle strength 5/5. Sensation to light touch intact. Normal Speech. IVs and Medications Medications Reviewed: Medications were reviewed in detail Lab and Diagnostics Result Diagram: 08/08/16 0345 08/08/16 0345 X-Rays, CTs and MRIs CTA chest 1. No evidence of pulmonary embolism. 2. Moderate bilateral pleural effusions a superimposed consolidations. The latter could represent atelectasis versus developing areas of pneumonia. 3. Mild appearance of increased pulmonary vascularity suggestive of edema. 4. Pericardial effusion. Dictated by: Meche Philip M.D. on 08/02/2016 at 16:53 PROCEDURE: CT BRAIN WITHOUT CONTRAST IMPRESSION: No acute intracranial disease process. Approved by: Jennifer Burroughs MD, PhD on 08/02/2016 at 14:47 PROCEDURE: X-RAY CHEST ONE VIEW, PORTABLE IMPRESSION: Bibasilar atelectasis versus aspiration or pneumonia. Correlate clinically. Approved by: Jennifer Burroughs MD, PhD on 08/02/2016 at 16:59 PROCEDURE: CT BRAIN WITHOUT CONTRAST IMPRESSION: Interval development of acute nonhemorrhagic ischemic insult involving the right frontal lobe. Findings discussed with Dr. Franco on 2116 hours on August 03, 2016. Approved by: Garrett Hay M.D. on 08/03/2016 at 21:18 PROCEDURE: CT ANGIO HEAD AND NECK NECK CT ANGIOGRAPHY: Vascular structures: Great vessels demonstrate conventional branching anatomy. The proximal great vessels are not well seen secondary to calcification and motion artifact. Innominate artery not well-seen at its origin secondary to vascular calcification. Possible high-grade innominate artery stenosis is present. Right subclavian artery demonstrate mild diffuse stenosis. Right vertebral artery origin not well-seen. Right vertebral artery otherwise is patent. Right common carotid artery is mildly diffusely stenotic as visualized, but is not well-seen at its origin. Right external carotid artery is moderately stenotic at its origin. Right internal carotid artery is mildly stenotic at its origin, it is otherwise patent. Left common carotid artery is not well-seen proximally, but demonstrate mild diffuse calcific stenosis. Moderate to high- grade calcific stenosis within the left mid common carotid artery. Left external carotid artery demonstrates high-grade origin stenosis. Left internal carotid artery demonstrates mild, roughly 30% origin stenosis. Left internal carotid arteries otherwise patent. Left subclavian artery not well-seen proximally, but demonstrates possible moderate diffuse stenosis. Left vertebral artery is patent as visualized. IMPRESSION: 1. Suboptimally visualized proximal great vessels and proximal right vertebral artery. 2. Mild bilateral internal carotid artery stenosis as described above. 3. Patent left vertebral artery. 4. Subacute right frontal lobe infarct. No acute intracranial abnormality. Approved by: Vj Uriarte M.D. on 08/04/2016 at 10:44 PROCEDURE: X-RAY CHEST ONE VIEW, PORTABLE IMPRESSION: 1. No complication following thoracentesis. 2. No change in left lung pneumonia and parapneumonic effusion. Continued plain film surveillance is recommended to ensure resolution, and to exclude underlying or central malignancy. Approved by: Vj Uriarte M.D. on 08/04/2016 at 15:50 PROCEDURE: X-RAY CHEST ONE VIEW, PORTABLE IMPRESSION: 1. Bilateral effusions, left greater than right and persistent consolidation consistent with compressive atelectasis versus pneumonia. Dictated by: Louis OLIVEIRA Interpreted: Meche Philip MD on 08/07/2016 at 16: 11 Transcribed by: RASHEED on 08/07/2016 at 16:12 PROCEDURE: US CHEST/PLEURAL SONOGRAM IMPRESSION: Small right and moderate left pleural effusion with low level echoes within the left effusion and hemorrhagic products cannot be excluded. Dictated by: Louis OLIVEIRA Interpreted: Jennifer Burroughs MD on 08/07/2016 at 15:32 Transcribed by: RONY on 08/07/2016 at 15:33 PROCEDURE: US ABDOMEN IMPRESSION: Bilateral pleural effusions. Liver: Liver is normal in size and homogeneous in echotexture. Dictated by: Louis OLIVEIRA Interpreted: Yanci Glaser MD on 08/08/2016 at 13: 35 Transcribed by: BRANDI on 08/08/2016 at 13:36 Approved by: Yanci Glaser M.D. on 08/08/2016 at 16:47 PROCEDURE: X-RAY CHEST ONE VIEW IMPRESSION: 1. No complication following left-sided thoracentesis. 2. No change in multifocal pneumonia. Dictated by: Vj Uriarte M.D. on 08/08/2016 at 12:16 Approved by: Vj Uriarte M.D. on 08/08/2016 at 12:17 12-lead ECG EKG shows atrial fibrillation with a rate of 134, QTC is read to be 518 ms but it does not appear that long to me. If in question recommend calculating by hand Cardiac Echo Impressions Echocardiogram Report Interpretation Summary The left ventricle is normal in size. Left ventricular systolic function is normal without focal wall motion abnormalities. The ejection fraction is estimated to be 60-65%. Assessment of diastolic parameters suggests a pseudonormalization pattern, consistent with elevated filling pressures. The right ventricle is normal in size and function. The right ventricular systolic pressure is estimated at 31 mmHg assuming a right atrial pressure of 3 mm Hg. The left atrium is severely dilated. The right atrium is mildly dilated. There is mild to moderate mitral regurgitation. There is moderate aortic regurgitation. There is mild to moderate aortic stenosis. The calculated aortic valve area is 1.4 cm2. There is mild to moderate tricuspid regurgitation. The aortic root is normal size. There is a large right-sided pleural effusion. There is a moderate left-sided pleural effusion. Reading Physician: PM Assessment & Plan Patient is a 60 year old female with history of left ICA stenosis and left subclavian stenosis, Hodgkin lymphoma, and recent treatment for possible pneumonia who presented with syncope and collapse that occurred just prior to arrival. Admitted for acute ischemic stroke, bilateral pleural effusions, acute CHF exacerbation, and new onset afib. 1. Bilateral Exudative pleural effusions. Suspect acute. Present on admission. Active. - Likely secondary to CHF. Fluid analysis showed elevated lymphocytes (55%). CT angio 08/02 showed bilateral pleural effusions. - Right thoracentesis on 08/04/16. Appears to be exudative effusion based on elevated total protein (ratio 0.56) and LDH. Pleuritic chest pain post thoracentesis improved. Suspect this is from pleural inflammation rather than a complication of the procedure itself. - Left thoracentesis performed this morning 08/08 and drained 1050cc. Analysis is also consistent with exudative effusion. - I contact Dr. Anna Brown (Pathology) to follow up on the 08/04 cytology and was told that it was NOT done. They still have some of the old fluid and can run the cytology now, but the results will be likely false positive/ negative. Pathology will run the cytology on the new pleural fluid from the left thoracentesis STAT. - Post-thoracentesis CXR showed no complication following left-sided thoracentesis. Her pleural effusions appear to improve on both sides. - Discussed the case with Dr. Hazel (Oncology), who thought that it is possible the pleural effusion is due to radiation sequelae. It is less likely due to Hodgkin's lymphoma or chemotherapy. - Pulmonology consulted and following. Their time and recommendations are appreciated. - Oxycodone q4h PRN and ibuprofen 400 mg q6h PRN chest pain (s/p thoracentesis) 2. Acute and new onset atrial fibrillation with rapid ventricular response, present on admission. Improving. - Converted to sinus rhythm soon after admission. However, converted back to Afib on the night of 08/06. - Home Atenolol was switched to Metoprolol 12.5mg BID for better rate control on 08/06, but due to Afib with rapid ventricular rate, Metoprolol was d/c and Diltiazem ggt was given overnight. - Appreciate cardiology recommendations. Will switch the patient back to Metoprolol at a higher dose of 50mg BID per cardiology's recommendation. - Continue to monitor Tele - Resume Heparin drip. Will consider switching to PO anticoagulation at discharge. 3. Thrombocytosis, likely acute on chronic, present on admission. Worsening. - Platelet of 523 on admission, which increased up to 814. Platelet is 774 today. - Unknown etiology. Differential include allergic/stress reaction, anemia, or malignancy. - Per Dr. Hazel recommendation, JAK2 panel was ordered. - Will continue to monitor CBC. 4. Acute Transaminase Elevation, not present on admission. Active. - AST and ALT have been slowly, but steadily trending up, max at AST 77 and ALT 83 today. - Abdominal U/S did not reveal any abnormality in the liver or biliary tract. - Patient is asymptomatic. - Will check hepatitis panel in the AM. Will continue to monitor. 5. Hypotension, not present on admision, likely acute on chronic, resolved. - Patient reports normally low BP, which worsened due to dehydration and large pleural collections. - NS 1000ml @100ml/hr was given yesterday. - BP has been stable. Continue to monitor vital signs. 6. Acute ischemic stroke, not present on admission, improving. - CT scans as above show acute right frontal ischemia - Discussed with [place] and patient was not a candidate for intervention. They recommended medical management including starting long-term anticoagulation like Pradaxa in addition to a full strength aspirin. They did not recommend waiting 2 weeks to start anticoagulation given smaller area of infarct. Because of her high risk of re-embolization, she was started on a heparin drip. - Aspirin 325 mg once daily - Continue Atorvastatin 80 mg daily. Lipid panel was wnl. - Swallow was within normal limit per speech. She also has normal functional and strength per PT. Continue to follow up with OT. 7. Acute diastolic CHF secondary to valvular heart disease and possibly to distant history of radiation therapy for Hodgkin's lymphoma. - Echo as above. Ruled out ACS by negative Troponin. - Discontinue IV Lasix 40 mg on 08/07 due to hypotension - Lisinopril started on 08/05, but hold on 08/07 due to hypotension. Will continue to hold. - Will resume Metoprolol as above. - Continue ASA and statin - I/O, daily standing weights. 8. Acute syncope, prior to admission. - Per Dr. Henao, the syncope was likely secondary to cough syncope rather than the acute ischemic stroke. - There is question if related to underlying subclavian stenosis / subclavian steal syndrome 9. Possible community-acquired pneumonia, prior to admission. - Unlikely. Patient has been afebrile and no other signs of infection. Leukocytosis could be due to stress reaction. - She had 6 day course of Augmentin. Will stop today. 10. CAD. presumed stable for now - c/w outpatient cardiac meds 11. Hodgkin's lymphoma, in remission - chemotherapy and radiation in 1979 Dispo: Likely 2+ days given planned thoracentesis on Saturday and likely requiring further workup. Pain Evaluation: Adequate Pain Control VTE Prophylaxis: Sub-Q Heparin (Unfractionated) Resuscitation Status: CPR: Attempt Resuscitation Attending Statement The patient was seen and examined together with Dr. Khanna on 08/08/2016 and I agree with the history, exam and plan as outlined in the note above. . Dianne Khanna DO Aug 08, 2016 07:53 Yamil Celeste MD Aug 09, 2016 17:40
--- NOTE | 2016-08-08 19:00 | NUR ---
Thoracentesis, Heparin, Diltiazem Thoracentesis - She left [facility] via transporter and wheelchair at 1000 to go get a left lung thoracentesis performed as planned. Her and daughter went with her and waited in a waiting room near ultrasound. She returned at 1200 and was settled back into her room and hooked back up to the MP30 monitor. Heparin - Her Heparin drip was restarted at [address] Peck (pulmonology resident) and Dr. Khanna (purple team resident) orders. It was set at a rate of 1025 units/hour (same rate as before it was put on hold for the thoracentesis) . Diltiazem - Per Dr. Baez's orders, the Diltiazem drip was discontinued at 1715 so that Metoprolol PO can be given about 2029 for better care home rate control. Currently sinus rhythm 90s. restaurant shift leader notified that the other day when given Metoprolol her blood pressure decreased. Dr. Baez aware and says to monitor her blood pressures closely. Care continues.
[2016-08-08] MEDS: Omega-3 Fatty Acids 1,000 mg Capsule PO SCH (22:12)
[2016-08-09] VITALS (10 sets, daily range): BP systolic 103–128; BP diastolic 43–63; PULSE 75–96; RESP 16–21; O2SAT 91–98
--- NOTE | 2016-08-09 01:30 | NUR ---
CPAP: Pt was unable to maintain oxygen saturations on home CPAP with an oxygen bleed in of 6 L. Pt saturations dropped to 85-86% on CPAP machine. RT notified. Pt placed back on oxymask at 6 L and then titrated up to 8L to keep saturations at 90% while asleep. Pt remains on continuous pulse oximetry for close monitoring.
[2016-08-09 01:44] LABS: BASOPHILS % (AUTO) 0.7 % (0-3); EOSINOPHILS % (AUTO) 3.3 % (0-5); MONOCYTES % (AUTO) 10.1 % (4-12); Mean Corpuscular Hemoglobin 31.9 pg (27.0-35.0); Mean Corpuscular Volume 97.8 fL (81-100); NEUTROPHILS % (AUTO) 75.2 % (40-74); Platelet Count 810 bil/L (150-400)
--- NOTE | 2016-08-09 06:26 | NUR ---
Rhythm and Rate: Pt's rhythm has remained NSR throughout the night. Initially HR was in the 90s and then dropped to the 70s to 80s after metoprolol dose. Bp has remained stable. Will cont. to monitor.
[2016-08-09] MEDS: RESTASIS BOTH_EYES SCH ×2 (08:37→22:22)
[2016-08-09] MEDS: Heparin 25K Unit/500mL 0.45 NS 25,000 UNIT in IV Premix 1 EACH IV SCH (11:13)
--- NOTE | 2016-08-09 11:20 | PCM.PNMED ---
Subjective Date of Service Aug 09, 2016 Subjective Overnight: No acute event. Patient's rhythm has remained NSR throughout the night. HR has been in the 70s-90s. BP has also remained stable. Today: Patient reports to feel ok with no complaint today. She does not have any shortness of breath with activities and would like to take a shower. She admits to persistent poor appetite and generalized fatigue. Voiding and stooling with no issue. Patient had a 2 view CXR this morning. Exam Vital Signs Vital Sign - Last Date Time Temp Pulse Resp B/P Pulse Ox O2 Delivery O2 Flow Rate FiO2 08/09/16 06:14 93 08/09/16 04:31 36.7 21 103/44 95 OxyMask 7.00 08/04/16 07:43 70 Intake and Output 08/08/16 08/08/16 08/09/16 Cumulative From/Thru 14:59 22:59 06:59 08/02/16 12:38 - 08/09/16 06:36 Intake Total 1266 ml 1068 ml 86958 ml Output Total 100 ml 550 ml 6715 ml Balance 1166 ml 518 ml 4499 ml Intake Oral 238 ml 718 ml 5502 ml IV Total 1028 ml 350 ml 5712 ml Output Urine Total 100 ml 550 ml 6715 ml # Voids 1 2 # Bowel Movements 1 7 Exam General: Alert, cooperative, no Acute Distress, fatigue/pale-looking Head: Normal, atraumatic Eyes: EOMI. Scleral Anicteric, conjunctival pallor Mouth: Mucous Membrane dry Neck: Supple Chest & Lungs: Chest Wall Normal, Decreased breath sound on bilateral lung bases, worse on the left. No crackles or wheezes noted. Cardiovascular: Regular rate and rhythm. Soft systolic murmur. Abdomen: Soft, Non-tender, Non-distended, Normoactive bowel tones. Extremities: No cyanosis/clubbing/edma bilat Neurological: Sensation to light touch intact. Normal Speech. IVs and Medications Medications Reviewed: Medications were reviewed in detail Lab and Diagnostics Result Diagram: 08/09/1612908/09/16129 X-Rays, CTs and MRIs CTA chest 1. No evidence of pulmonary embolism. 2. Moderate bilateral pleural effusions a superimposed consolidations. The latter could represent atelectasis versus developing areas of pneumonia. 3. Mild appearance of increased pulmonary vascularity suggestive of edema. 4. Pericardial effusion. Dictated by: Meche Philip M.D. on 08/02/2016 at 16:53 PROCEDURE: CT BRAIN WITHOUT CONTRAST IMPRESSION: No acute intracranial disease process. Approved by: Jennifer Burroughs MD, PhD on 08/02/2016 at 14:47 PROCEDURE: X-RAY CHEST ONE VIEW, PORTABLE IMPRESSION: Bibasilar atelectasis versus aspiration or pneumonia. Correlate clinically. Approved by: Jennifer Burroughs MD, PhD on 08/02/2016 at 16:59 PROCEDURE: CT BRAIN WITHOUT CONTRAST IMPRESSION: Interval development of acute nonhemorrhagic ischemic insult involving the right frontal lobe. Findings discussed with Dr. Franco on 2116 hours on August 03, 2016. Approved by: Garrett Hay M.D. on 08/03/2016 at 21:18 PROCEDURE: CT ANGIO HEAD AND NECK NECK CT ANGIOGRAPHY: Vascular structures: Great vessels demonstrate conventional branching anatomy. The proximal great vessels are not well seen secondary to calcification and motion artifact. Innominate artery not well-seen at its origin secondary to vascular calcification. Possible high-grade innominate artery stenosis is present. Right subclavian artery demonstrate mild diffuse stenosis. Right vertebral artery origin not well-seen. Right vertebral artery otherwise is patent. Right common carotid artery is mildly diffusely stenotic as visualized, but is not well-seen at its origin. Right external carotid artery is moderately stenotic at its origin. Right internal carotid artery is mildly stenotic at its origin, it is otherwise patent. Left common carotid artery is not well-seen proximally, but demonstrate mild diffuse calcific stenosis. Moderate to high- grade calcific stenosis within the left mid common carotid artery. Left external carotid artery demonstrates high-grade origin stenosis. Left internal carotid artery demonstrates mild, roughly 30% origin stenosis. Left internal carotid arteries otherwise patent. Left subclavian artery not well-seen proximally, but demonstrates possible moderate diffuse stenosis. Left vertebral artery is patent as visualized. IMPRESSION: 1. Suboptimally visualized proximal great vessels and proximal right vertebral artery. 2. Mild bilateral internal carotid artery stenosis as described above. 3. Patent left vertebral artery. 4. Subacute right frontal lobe infarct. No acute intracranial abnormality. Approved by: Vj Uriarte M.D. on 08/04/2016 at 10:44 PROCEDURE: X-RAY CHEST ONE VIEW, PORTABLE IMPRESSION: 1. No complication following thoracentesis. 2. No change in left lung pneumonia and parapneumonic effusion. Continued plain film surveillance is recommended to ensure resolution, and to exclude underlying or central malignancy. Approved by: Vj Uriarte M.D. on 08/04/2016 at 15:50 PROCEDURE: X-RAY CHEST ONE VIEW, PORTABLE IMPRESSION: 1. Bilateral effusions, left greater than right and persistent consolidation consistent with compressive atelectasis versus pneumonia. Dictated by: Louis OLIVEIRA Interpreted: Meche Philip MD on 08/07/2016 at 16: 11 Transcribed by: RASHEED on 08/07/2016 at 16:12 PROCEDURE: US CHEST/PLEURAL SONOGRAM IMPRESSION: Small right and moderate left pleural effusion with low level echoes within the left effusion and hemorrhagic products cannot be excluded. Dictated by: Louis OLIVEIRA Interpreted: Jennifer Burroughs MD on 08/07/2016 at 15:32 Transcribed by: RONY on 08/07/2016 at 15:33 PROCEDURE: US ABDOMEN IMPRESSION: Bilateral pleural effusions. Liver: Liver is normal in size and homogeneous in echotexture. Dictated by: Louis OLIVEIRA Interpreted: Yanci Glaser MD on 08/08/2016 at 13: 35 Transcribed by: BRANDI on 08/08/2016 at 13:36 Approved by: Yanci Glaser M.D. on 08/08/2016 at 16:47 PROCEDURE: X-RAY CHEST ONE VIEW IMPRESSION: 1. No complication following left-sided thoracentesis. 2. No change in multifocal pneumonia. Dictated by: Vj Uriarte M.D. on 08/08/2016 at 12:16 Approved by: Vj Uriarte M.D. on 08/08/2016 at 12:17 12-lead ECG EKG shows atrial fibrillation with a rate of 134, QTC is read to be 518 ms but it does not appear that long to me. If in question recommend calculating by hand Cardiac Echo Impressions Echocardiogram Report Interpretation Summary The left ventricle is normal in size. Left ventricular systolic function is normal without focal wall motion abnormalities. The ejection fraction is estimated to be 60-65%. Assessment of diastolic parameters suggests a pseudonormalization pattern, consistent with elevated filling pressures. The right ventricle is normal in size and function. The right ventricular systolic pressure is estimated at 31 mmHg assuming a right atrial pressure of 3 mm Hg. The left atrium is severely dilated. The right atrium is mildly dilated. There is mild to moderate mitral regurgitation. There is moderate aortic regurgitation. There is mild to moderate aortic stenosis. The calculated aortic valve area is 1.4 cm2. There is mild to moderate tricuspid regurgitation. The aortic root is normal size. There is a large right-sided pleural effusion. There is a moderate left-sided pleural effusion. Reading Physician: PM Assessment & Plan Patient is a 60 year old female with history of left ICA stenosis and left subclavian stenosis, Hodgkin lymphoma, and recent treatment for possible pneumonia who presented with syncope and collapse that occurred just prior to arrival. Admitted for acute ischemic stroke, bilateral pleural effusions, acute CHF exacerbation, and new onset afib. 1. Bilateral Exudative pleural effusions. Suspect acute. Present on admission. Active. - Likely secondary to CHF. Fluid analysis showed elevated lymphocytes (55%). CT angio 08/02 showed bilateral pleural effusions. - Right thoracentesis on 08/04/16. Appears to be exudative effusion based on elevated total protein (ratio 0.56) and LDH. Pleuritic chest pain post thoracentesis improved. Suspect this is from pleural inflammation rather than a complication of the procedure itself. - Left thoracentesis performed this morning 08/08 and drained 1050cc. Analysis is also consistent with exudative effusion. - I contacted Dr. Anna Brown (Pathology) to follow up on the 08/04 cytology and was told that it was NOT done. They still have some of the old fluid and can run the cytology now, but the results will be likely false positive/negative. Pathology will run the cytology on the new pleural fluid from the left thoracentesis STAT. - Post-thoracentesis CXR showed no complication following left-sided thoracentesis. Her pleural effusions appear to improve on both sides. CXR this morning showed some bibasilar airspace opacities. Radiology read pending. - Will repeat CXR in 1-2 days. - Discussed the case with Dr. Hazel (Oncology), who thought that it is possible the pleural effusion is due to radiation sequelae. It is less likely due to Hodgkin's lymphoma or chemotherapy. - Pulmonology consulted and following. Their time and recommendations are appreciated. - Oxycodone q4h PRN and ibuprofen 400 mg q6h PRN chest pain (s/p thoracentesis). 2. Acute and new onset atrial fibrillation with rapid ventricular response, present on admission. Improving. - Converted to sinus rhythm soon after admission. However, converted back to Afib on the night of 08/06. - Home Atenolol was switched to Metoprolol 12.5mg BID for better rate control on 08/06, but due to Afib with rapid ventricular rate, Metoprolol was d/c and Diltiazem ggt was given on 08/07. - Per Card[facility], resumed Metoprolol at a higher dose of 50mg BID. Patient has been in normal sinus rhythm > 24 hours. - Continue to monitor Tele - Resume Heparin drip. Will consider switching to PO anticoagulation at discharge. 3. Acute Leukocytosis, active. - WBC was trending down, but increased to 13 this morning. - Patient is asymptomatic besides the nonproductive cough. No other signs of infection. - Check Procalcitonin. Will consider blood culture and starting antibiotic if elevated. 3. Thrombocytosis, likely acute on chronic, present on admission. Active. - Platelet of 523 on admission, which increased up to 814. Platelet is 810 today. - Unknown etiology. Differential include allergic/stress reaction, anemia, or malignancy. - Per Dr. Hazel recommendation, JAK2 panel was ordered and now pending. - Will continue to monitor CBC. 4. Acute Transaminase Elevation, not present on admission. Improved. - AST and ALT have been slowly, but steadily trending up, max at AST 77 and ALT 83. - AST 46 and ALT 64 today - Abdominal U/S did not reveal any abnormality in the liver or biliary tract. - Patient is asymptomatic. - Viral hepatitis panel pending. 5. Hypotension, not present on admision, likely acute on chronic, resolved. - Patient reports normally low BP, which was worsened due to dehydration and large pleural collections. - BP has been stable. Continue to monitor vital signs. 6. Acute ischemic stroke, not present on admission, improving. - CT scans as above show acute right frontal ischemia - Discussed with Turkish and patient was not a candidate for intervention. They recommended medical management including starting long-term anticoagulation like Pradaxa in addition to a full strength aspirin. They did not recommend waiting 2 weeks to start anticoagulation given smaller area of infarct. Because of her high risk of re-embolization, she was started on a heparin drip. - Aspirin 325 mg once daily - Continue Atorvastatin 80 mg daily. Lipid panel was wnl. - Swallow was within normal limit per speech. She also has normal functional and strength per PT. Will have PT re-evaluate to help the patient increase her mobility. 7. Acute diastolic CHF secondary to valvular heart disease and possibly to distant history of radiation therapy for Hodgkin's lymphoma. - Echo as above. Ruled out ACS by negative Troponin. - Discontinue IV Lasix 40 mg on 08/07 due to hypotension - Lisinopril started on 08/05, but hold on 08/07 due to hypotension. Will continue to hold. - Continue Metoprolol as above. - Continue ASA and statin - I/O, daily standing weights. 8. Acute syncope, prior to admission. - Per Dr. Henao, the syncope was likely secondary to cough syncope rather than the acute ischemic stroke. - Will check bilateral subclavian stenosis / subclavian steal syndrome 9. Possible community-acquired pneumonia, prior to admission. - Unlikely. Patient has been afebrile and no other signs of infection. Leukocytosis could be due to stress reaction. - She had 6 day course of Augmentin. D/C on 08/08. 10. CAD. presumed stable for now - c/w outpatient cardiac meds 11. Hodgkin's lymphoma, in remission - chemotherapy and radiation in 1979 Dispo: Likely 2+ days given complex medical course and likely requiring further workup. Pain Evaluation: Adequate Pain Control VTE Prophylaxis: Sub-Q Heparin (Unfractionated) Resuscitation Status: CPR: Attempt Resuscitation Attending Statement The patient was seen and examined together with Dr. Khanna on 08/09/2016 and I agree with the history, exam and plan as outlined in the note above. . Dianne Khanna DO Aug 09, 2016 07:51 Yamil Celeste MD Aug 11, 2016 15:15
--- NOTE | 2016-08-09 11:48 | NUR ---
Hypotension Prior to getting up with PT after taking am medications the pt's BP was 94/42 laying in bed. After getting up and working in the room with PT her BP came up to 105/43. No c/o dizziness. Will inform MD when rounding
--- NOTE | 2016-08-09 11:52 | NUR ---
Evaluation completed. Please go to "Notes" then click on "Assessments and Notes" (bottom left corner of screen). Then select appropriate discipline tab on top of screen.
--- NOTE | 2016-08-09 13:59 | NUR ---
NUTRITION ASSESSMENT: ASSESS: Pt is a 60yo F admitted for acute ischemic stroke, bilateral pleural effusions, acute CHF exacerbation, and new onset afib. She is s/p rt thoracentesis 08/04 and left thoracentesis 08/08. She is currently on Heart Healthy diet with moderate PO intake of ~25-50% of meals. Pt was snacking on kettle corn when visited with her. She reported that appetite was improving. PMHX: Aortic insufficiency, CAD, PVCs, Hodgkin lymphoma. LABS: Reviewed. Policy Specialist .45, Glu 128, ALT 64, Alb 2.8 MEDS: Reviewed. MVI, zofran GI: BMx1 08/08 SKIN: Phillip 20 CURRENT WTS: 60.4kg, BMI 22.2kg/m2, admit wt 61.8kg/m2 DIET: Heart Healthy, PO 25-50% EST. NEEDS: Kcals: 1510-1815kcal/day (25-30kcal/kg) Pro: 70-90g/day (1.2-1.5g/kg) NUTRITION DIAGNOSIS: 1.) Variable PO intake related to acute illness as evidence by PO ranging from 0-50% of meals. NUTRITION INTERVENTION: 1.) Continue Ensure on all trays. Will change to only chocolate flavor per pt preference 2.) Encourage pt to make sure she gets protein in with all meals 3.) Will add Magic Cup on L tray per pt preference. 4.) Encouraged family to continue bringing in food that pt prefers MONITOR / EVAL: PO, wt, labs, GI, POC, nutrition status. Will continue to monitor per moderate nutrition risk guidelines
--- NOTE | 2016-08-09 14:32 | DRSVH ---
PROCEDURE: X-RAY CHEST, TWO VIEWS ([id number]) INDICATIONS: Pleural Effusion TECHNIQUE: 2 views of the chest were acquired. COMPARISON: [facility], CR, XR CHEST 1VW, 08/08/2016, 11:46. FINDINGS: Surgical changes and devices: Lateral quadrant surgical clips. Lungs and pleura: Small pleural effusions are present and there has been interval increase in left mi d and persistent basilar airspace opacities. Mediastinum: Mediastinal contours are normal. Heart size is normal. Bones and chest wall: No suspicious bony abnormalities. Soft tissues appear unremarkable. IMPRESSION: 1. Small pleural effusions. 2. Increase in mid left and persistent bibasilar airspace opacities suggestive of pneumonia. Continue d radiographic surveillance to resolution is recommended. Dictated by: Louis Ly [facility] Interpreted: Jennifer Burroughs MD on 08/09/2016 at 14:31 Transcribed by: RONY on 08/09/2016 at 14:32 Approved by: Jennifer Burroughs MD, PhD on 08/09/2016 at 17:06
[2016-08-09] MEDS: Omega-3 Fatty Acids 1,000 mg Capsule PO SCH (21:00)
--- NOTE | 2016-08-09 23:18 | NUR ---
NEURO 2100 Dr Goff notified of Neuro status findings, will come and evaluate pt.
[2016-08-10 03:00] VITALS: BP 113/57; PULSE 79; O2SAT 95
[2016-08-10 05:09] LABS: Hepatitis A Antibody IgM Negative (Negative); Hepatitis B Core Antibody IgM Negative (Negative)
--- NOTE | 2016-08-10 05:25 | NUR ---
Respiratory / Neurovascular Pt on 3L NC at beginning of shift, denies dyspnea; SPO2 87-89% and pt unable to recover beyond 90%. Pt switched to oxymask for nighttime, increased O2 to 6L for SPO2 91-95%. At HS, day shift aide reported newer weakness with ambulation that hadn't been there prior in the day; charge nurse assessed, paged, no new orders placed. L facial droop noted stable from prior assessments, LUE intermittent weakness throughout the shift. Pt stable, denies feeling any weaker than normal. VSS. Tele SR 80s-90s.
[2016-08-10 05:32] VITALS: PULSE 81
[2016-08-10 07:05] LABS: Mean Corpuscular Hemoglobin 31.3 pg (27.0-35.0); Mean Corpuscular Volume 96.9 fL (81-100); Platelet Count 797 bil/L (150-400)
[2016-08-10 07:53] LABS: BASOPHILS % (AUTO) 1 % (0-3); EOSINOPHILS % (AUTO) 1 % (0-5); MONOCYTES % (AUTO) 12 % (4-12); NEUTROPHILS % (AUTO) 75 % (40-74)
[2016-08-10 08:00] VITALS: PULSE 77
[2016-08-10] MEDS: RESTASIS BOTH_EYES SCH (08:10)
[2016-08-10 09:14] VITALS: BP 113/53; PULSE 81; RESP 16; O2SAT 93
--- NOTE | 2016-08-10 10:03 | NUR ---
Left sided weakness/Facial droop Upon assessment this am I noticed a prominent left facial droop that is new as compared to yesterday. Pt also has left arm weakness with a pronating drift. Left leg is slightly more weak compared to the right. MD made aware and rounded, calling Romanian now to transfer out. Family aware. Heparin currently running at 1200 un/hr, next PTT to be drawn here at 1230. Closely monitoring.
--- NOTE | 2016-08-10 10:04 | PATH ---
SURGICAL PATHOLOGY Attending Physician:Smiley Constantino MD CASE STATUS: Signed Out PATIENT NAME: EVELIA BINGHAM PID: [id number] : 1955 DATE COLLECTED:08/04/2016 00:00 SPECIMEN: Pleural Fluid CLINICAL HISTORY: Pleural Fluid ICD-10 code not given FINAL DIAGNOSIS: PLEURAL FLUID: NEGATIVE FOR MALIGNANT CELLS, SEE COMMENT. ICD10 code J90 NOTE: Slides show rare mesothelial cells in a background of acellular and proteinaceous debris. No high-grade malignant cell are identified. There is likely cellular degradation due to a processing delay; this was discussed with Dr. Khanna on 08/08/2009. GROSS DESCRIPTION: Received fresh on 08/09/2016 is approximately 4 cc of clear yellow fluid. Prepared are one cell block, one ThinPrep and one Cytospin slides. Vo ICD-9 CODES: CPT CODES: 1: 64261, 24103, 71111 Electronically Signed Out Anna Brown MD [facility] Pathology [facility] [address], [place] [address] Technical component performed at [facility], [address], [place], [address]
--- NOTE | 2016-08-10 10:09 | PATH ---
SURGICAL PATHOLOGY Attending Physician:Smiley Constantino MD CASE STATUS: Signed Out PATIENT NAME: EVELIA BINGHAM PID: [id number] : 1955 DATE COLLECTED:08/08/2016 00:00 SPECIMEN: Pleural Fluid CLINICAL HISTORY: Pleural Fluid ICD-10 code not given FINAL DIAGNOSIS: PLEURAL FLUID: NEGATIVE FOR MALIGNANT CELLS. ICD10 code J90 NOTE: The slides contain numerous mesothelial cells and occasional lymphocytes. No high-grade malignant cells are identified. Dr. Brown discussed the results with Dr. Smiley Constantino on 08/10/2016. GROSS DESCRIPTION: Received fresh on 08/09/2016 is approximately 45 cc of cloudy pink fluid. Prepared are one cell block, one ThinPrep and one Cytospin slides. Vo ICD-9 CODES: CPT CODES: 1: 90803, 50267, 64788 Electronically Signed Out Anna Brown MD [facility] Pathology [facility] [address] [facility], [place] [address] Technical component performed at [facility], [address] [place] [address] [address], [place], [address]
[2016-08-10] MEDS: Heparin 25K Unit/500mL 0.45 NS 25,000 UNIT in IV Premix 1 EACH IV SCH (10:37)
--- NOTE | 2016-08-10 10:51 | PCM.DC.MED ---
Discharge Summary Date of Service Aug 10, 2016 Dates of Hospitalization Date of Hospital Admission Aug 02, 2016 at 18:13 Date of Discharge: Aug 10, 2016 Providers: Admitting Physician: Melo Mata MD Primary Care Physician: Elizabeth Ann MD Attending Physician: Melo Mata MD Diagnosis at Time of Discharge Diagnosis at Time of Discharge 1. Acute ischemic stroke, present on admission. Fluctuating. 2. Bilateral exudative pleural effusions. Suspect acute. Present on admission. Active. 3. Acute and new onset atrial fibrillation with rapid ventricular response, present on admission. Improving. 4. Acute Leukocytosis, present on admission. Active. 5. Thrombocytosis, likely acute on chronic, present on admission. Active. 6. Acute Transaminase Elevation, not present on admission. Improved. 7. Hypotension, not present on admission, likely acute on chronic. Resolved. 8. Acute diastolic CHF secondary to valvular heart disease and possibly to distant history of radiation therapy for Hodgkin's lymphoma. 9. Acute syncope, prior to admission. 10. Possible community-acquired pneumonia, prior to admission. 11. Coronary artery disease. Chronic. Stable. 12. Hodgkin's lymphoma, in remission Consultations Pulmonology (Dr. Braun) and Cardiology (Dr. Henao) Procedures XRay, CTs & MRIs CTA chest 1. No evidence of pulmonary embolism. 2. Moderate bilateral pleural effusions a superimposed consolidations. The latter could represent atelectasis versus developing areas of pneumonia. 3. Mild appearance of increased pulmonary vascularity suggestive of edema. 4. Pericardial effusion. Dictated by: Meche Philip M.D. on 08/02/2016 at 16:53 PROCEDURE: CT BRAIN WITHOUT CONTRAST IMPRESSION: No acute intracranial disease process. Approved by: Jennifer Burroughs MD, PhD on 08/02/2016 at 14:47 PROCEDURE: X-RAY CHEST ONE VIEW, PORTABLE IMPRESSION: Bibasilar atelectasis versus aspiration or pneumonia. Correlate clinically. Approved by: Jennifer Burroughs MD, PhD on 08/02/2016 at 16:59 PROCEDURE: CT BRAIN WITHOUT CONTRAST IMPRESSION: Interval development of acute nonhemorrhagic ischemic insult involving the right frontal lobe. Findings discussed with Dr. Franco on 2117 hours on August 03, 2016. Approved by: Garrett Hay M.D. on 08/03/2016 at 21:18 PROCEDURE: CT ANGIO HEAD AND NECK NECK CT ANGIOGRAPHY: Vascular structures: Great vessels demonstrate conventional branching anatomy. The proximal great vessels are not well seen secondary to calcification and motion artifact. Innominate artery not well-seen at its origin secondary to vascular calcification. Possible high-grade innominate artery stenosis is present. Right subclavian artery demonstrate mild diffuse stenosis. Right vertebral artery origin not well-seen. Right vertebral artery otherwise is patent. Right common carotid artery is mildly diffusely stenotic as visualized, but is not well-seen at its origin. Right external carotid artery is moderately stenotic at its origin. Right internal carotid artery is mildly stenotic at its origin, it is otherwise patent. Left common carotid artery is not well-seen proximally, but demonstrate mild diffuse calcific stenosis. Moderate to high- grade calcific stenosis within the left mid common carotid artery. Left external carotid artery demonstrates high-grade origin stenosis. Left internal carotid artery demonstrates mild, roughly 30% origin stenosis. Left internal carotid arteries otherwise patent. Left subclavian artery not well-seen proximally, but demonstrates possible moderate diffuse stenosis. Left vertebral artery is patent as visualized. IMPRESSION: 1. Suboptimally visualized proximal great vessels and proximal right vertebral artery. 2. Mild bilateral internal carotid artery stenosis as described above. 3. Patent left vertebral artery. 4. Subacute right frontal lobe infarct. No acute intracranial abnormality. Approved by: Vj Uriarte M.D. on 08/04/2016 at 10:44 PROCEDURE: X-RAY CHEST ONE VIEW, PORTABLE IMPRESSION: 1. No complication following thoracentesis. 2. No change in left lung pneumonia and parapneumonic effusion. Continued plain film surveillance is recommended to ensure resolution, and to exclude underlying or central malignancy. Approved by: Vj Uriarte M.D. on 08/04/2016 at 15:50 PROCEDURE: X-RAY CHEST ONE VIEW, PORTABLE IMPRESSION: 1. Bilateral effusions, left greater than right and persistent consolidation consistent with compressive atelectasis versus pneumonia. Dictated by: Louis OLIVEIRA Interpreted: Meche Philip MD on 08/07/2016 at 16: 11 Transcribed by: RASHEED on 08/07/2016 at 16:12 PROCEDURE: US CHEST/PLEURAL SONOGRAM IMPRESSION: Small right and moderate left pleural effusion with low level echoes within the left effusion and hemorrhagic products cannot be excluded. Dictated by: Louis OLIVEIRA Interpreted: Jennifer Burrougsh MD on 08/07/2016 at 15:32 Transcribed by: RONY on 08/07/2016 at 15:33 PROCEDURE: US ABDOMEN IMPRESSION: Bilateral pleural effusions. Liver: Liver is normal in size and homogeneous in echotexture. Dictated by: Louis OLIVEIRA Interpreted: Yanci Glaser MD on 08/08/2016 at 13: 35 Transcribed by: BRANDI on 08/08/2016 at 13:36 Approved by: Yanci Glaser M.D. on 08/08/2016 at 16:47 PROCEDURE: X-RAY CHEST ONE VIEW IMPRESSION: 1. No complication following left-sided thoracentesis. 2. No change in multifocal pneumonia. Dictated by: Vj Uriarte M.D. on 08/08/2016 at 12:16 Approved by: Vj Uriarte M.D. on 08/08/2016 at 12:17 PROCEDURE: X-RAY CHEST, TWO VIEWS IMPRESSION: 1. Small pleural effusions. 2. Increase in mid left and persistent bibasilar airspace opacities suggestive of pneumonia. Continued radiographic surveillance to resolution is recommended. Dictated by: Louis OLIVEIRA Interpreted: Jennifer Burroughs MD on 08/09/2016 at 14:31 Transcribed by: RONY on 08/09/2016 at 14:32 Approved by: Jennifer Burroughs MD, PhD on 08/09/2016 at 17:06 ECG 12 Lead EKG shows atrial fibrillation with a rate of 134, QTC is read to be 518 ms but it does not appear that long to me. If in question recommend calculating by hand Cardiac Echo Impression Echocardiogram Report Interpretation Summary The left ventricle is normal in size. Left ventricular systolic function is normal without focal wall motion abnormalities. The ejection fraction is estimated to be 60-65%. Assessment of diastolic parameters suggests a pseudonormalization pattern, consistent with elevated filling pressures. The right ventricle is normal in size and function. The right ventricular systolic pressure is estimated at 31 mmHg assuming a right atrial pressure of 3 mm Hg. The left atrium is severely dilated. The right atrium is mildly dilated. There is mild to moderate mitral regurgitation. There is moderate aortic regurgitation. There is mild to moderate aortic stenosis. The calculated aortic valve area is 1.4 cm2. There is mild to moderate tricuspid regurgitation. The aortic root is normal size. There is a large right-sided pleural effusion. There is a moderate left-sided pleural effusion. Reading Physician: PM Invasive Procedures Right thoracentesis on 08/04 and left thoracentesis on 08/08. Brief History Per H&P :Nataliia Crum 60-year-old woman normally followed by cardiology in [place] with past cardiac history significant for aortic valvular disease, left carotid stenosis and left subclavian stenosis that experienced a syncopal event on August 02 at her home and was found by paramedics to be hypoxic while in atrial fibrillation with RVR. She was later found to have stroke like symptoms with left-sided weakness. She has no known history of atrial fibrillation. She does have a history of sleep apnea and has used a CPAP over the last 3 years. She had a cardiac stress test and angiogram done some years ago. Records pending at time of dictation. Evaluation in the hospital showed bilateral pleural effusions (large right-sided moderate left-sided) CAT scan of the chest showed no PE, bilateral effusions, possible pericardial effusion and suggestive of pulmonary edema. CT of the brain showed right frontal lobe nonhemorrhagic ischemic insult. Possibly remote. Neck angiogram was significant for moderate to high-grade stenosis of the left mid common carotid, common carotid with high- grade proximal stenosis. Echocardiogram on 08/03/2016 showed EF of 60-65% with pseudonormalization pattern consistent with elevated filling pressures. No focal wall motion abnormalities, LV normal size and function. RV was normal size and function. RV systolic pressure 31 mmHg the right atrium is not pressure 3 mmHg. The left atrium was severely dilated, right atrium mildly dilated. Was mild to moderate MR, moderate aortic regurgitation, mild to moderate (valve area 1.4 cm, 2.21 m/s, gradient 11.9.) Mild to moderate TR. " Because patients is at risk of deterioration, she needs to be transferred to a higher acuity care such as [facility]. The case was discussed with Dr. Mona Morocho (bit setter) and Dr. Mona Lazo (hospitalist), who kindly accepted our transfer request. Hospital Course Patient is a 60 year old female with history of left ICA stenosis and left subclavian stenosis, Hodgkin lymphoma, and recent treatment for possible pneumonia who presented with syncope and collapse that occurred just prior to arrival. Admitted for acute ischemic stroke, bilateral pleural effusions, acute CHF exacerbation, and new onset afib. 1. Acute ischemic stroke, not present on admission, fluctuating. - CT scans as above show acute right frontal ischemia - On admission, discussed with [place] and patient was not a candidate for intervention. They recommended medical management including starting long-term anticoagulation like Pradaxa in addition to a full strength aspirin. They did not recommend waiting 2 weeks to start anticoagulation given smaller area of infarct. Because of her high risk of re-embolization, she was started on a heparin drip. - Aspirin 325 mg once daily. - Patient was on Pradaxa PO, but was changed to Heparin drip since 08/06 for possible procedures. - Lipid panel was within normal limit. - Swallow was within normal limit per speech. She also has normal functional and strength per PT. - Patient's left-sided weakness and facial droop improved throughout the hospital course until the morning of 08/10, when she is found to have worsening left-sided weakness and facial droop. See neurological exam above. - CT Head noncontrast on 08/10 pending. 2. Bilateral Exudative pleural effusions. Suspect acute. Present on admission. Active. - CT angio 08/02 showed bilateral pleural effusions. - Initially suspected to be secondary to CHF. Fluid analysis showed elevated lymphocytes (55%). - Right thoracentesis, drained 1250cc on 08/04/16. Appears to be exudative effusion based on elevated total protein and LDH. - Left thoracentesis performed this morning 08/08 and drained 1050cc. Analysis is also consistent with exudative effusion. - Cytology report for the pleural fluid just became available 30minutes ago and showed similar results for both sides. There are numerous mesothelial cells and occasional lymphocytes. No high-grade malignant cells are identified. - Discussed the case with Dr. Hazel (Oncology), who thought that it is possible the pleural effusion is due to radiation sequelae. It is less likely due to Hodgkin's lymphoma or chemotherapy. - Pulmonology consulted and following. Their time and recommendations are appreciated. - Oxycodone q4h PRN and ibuprofen 400 mg q6h PRN chest pain (s/p thoracentesis). 3. Acute and new onset atrial fibrillation with rapid ventricular response, present on admission. Improving. - Converted to sinus rhythm soon after admission. However, converted back to Afib on the night of 08/06. - Home Atenolol was switched to Metoprolol 12.5mg BID for better rate control on 08/06, but due to Afib with rapid ventricular rate, Metoprolol was d/c and Diltiazem ggt was given on 08/07. - Per [facility]'s recommendations, resumed Metoprolol at a higher dose of 50mg BID. Patient has been in normal sinus rhythm > 24 hours. - Continue to monitor Tele - Resume Heparin drip. Will consider switching to PO anticoagulation at discharge. 4. Acute Leukocytosis, active. - WBC was trending down, but increased to 13.0 on 08/09 and 13.3 08/10. - Patient is asymptomatic besides the nonproductive cough. No other signs of infection. - Procalcitonin 0.05. Will consider blood culture and starting antibiotic if elevated. 5. Thrombocytosis, likely acute on chronic, present on admission. Active. - Platelet of 523 on admission, which increased up to 814. Platelet is 797 today. - Unknown etiology. Differential include allergic/stress reaction, anemia, or malignancy. - Per Dr. Hazel recommendation, JAK2 panel was ordered and now pending. - Will continue to monitor CBC. 6. Acute Transaminase Elevation, not present on admission. Improved. - AST and ALT have been slowly, but steadily trending up, max at AST 77 and ALT 83. - AST 44 and ALT 61 today - Abdominal U/S did not reveal any abnormality in the liver or biliary tract. - Patient is asymptomatic. - Viral hepatitis panel negative 7. Hypotension, not present on admision, likely acute on chronic, resolved. - Patient reports normally low BP, which was worsened due to dehydration and large pleural collections. - BP has been stable. Continue to monitor vital signs. 8. Acute diastolic CHF secondary to valvular heart disease and possibly to distant history of radiation therapy for Hodgkin's lymphoma. - Echo as above. Ruled out ACS by negative Troponin. - Discontinue IV Lasix 40 mg on 08/07 due to hypotension - Lisinopril started on 08/05, but hold on 08/07 due to hypotension. Will continue to hold. - Continue Metoprolol as above. - Continue ASA and statin - I/O, daily standing weights. 9. Acute syncope, prior to admission. - The syncope was likely secondary to cough syncope, but could also due to the acute ischemic stroke. 10. Possible community-acquired pneumonia, prior to admission. - Unlikely. Patient has been afebrile and no other signs of infection. Leukocytosis could be due to stress reaction. - She had 6 day course of Augmentin. D/C on 08/08. 11. CAD. presumed stable. - Continue outpatient cardiac meds 12. Hodgkin's lymphoma, in remission - chemotherapy and radiation in 1979. Dispo: Patient will be transfer to [facility] for higher level of care. Exam Vital Signs (Last) Date Time Temp Pulse Resp B/P Pulse Ox O2 Delivery O2 Flow Rate FiO2 08/10/16 09:14 36.4 81 16 113/53 93 OxyMask 6.00 08/04/16 07:43 70 Exam General: Alert, cooperative, fatigue/pale-looking, on oxygen mask, no acute distress. Head: Normal, atraumatic Eyes: EOMI. scleral anicteric, conjunctival pallor. Mouth: Mucous membrane dry. Neck: Supple, no JVD noted. Chest & Lungs: Chest Wall Normal. Decreased lung sound at bilateral lung bases , worse on the left side. Mild crackles noted on the left lung base as well. Cardiovascular: Regular rate and rhythm. Soft systolic murmur. Abdomen: Soft, Non-tender, Non-distended, Normoactive bowel tones. Extremities: No cyanosis/clubbing/edma bilat Neurological: Moderate left-sided facial droop with asymmetric smile. CN II- XII grossly intact. Motor strength +4/5 on the left upper extremity. +5/5 motor strength in bilateral lower extremities and right upper extremity. Normal finger -to-nose test on the right, but slow on the left. Romberg's test negative. Positive pronator drift on the left side. Sensation to light touch intact. Normal Speech. Test 08/02/16 13:56 08/02/16 14:10 08/02/16 15:08 08/03/16 07:55 Lactic Acid Level 1.9mmol/L (0.4-2.0) D-Dimer 4.6mg/L (<0.50) Urine Color Yellow (YELLOW) Urine Appearance Clear (CLEAR,HAZY) Urine pH 6.0 (5.0-8.0) Urine Specific [place] 1.025 (1.003-1.035) Urine Protein Negativemg/dL (NEG,TRACE) Urine Glucose (UA) Negativemg/dL (NEGATIVE) Urine Ketones Negativemg/dL (NEGATIVE) Urine Occult Blood Negative (NEGATIVE) Urine Nitrite Negative (NEGATIVE) Urine Bilirubin Negative (NEGATIVE) Urine Urobilinogen 4.0mg/dL (NORMAL) Urine Leukocyte Esterase Negative (NEGATIVE) Urine RBC 0-2/hpf (0-2) Urine WBC 0-5/hpf (0-5) Urine Epithelial Cells Occasional/hpf (NONE-MOD) Urine Crystals None seen (NONE SEEN) Urine Bacteria O/hpf (NONE-FEW) Urine Hyaline Casts None/lpf (NONE) Urine Granular Casts None seen (NONE SEEN) Urine Waxy Casts None seen (NONE SEEN) Urine Red Blood Cell Casts None seen (NONE SEEN) Urine White Blood Cell Casts None seen (NONE SEEN) Urine Mucus Present (None Seen) Urine Trichomonas None seen (NONE SEEN) Urine Yeast None (NONE SEEN) Urinalysis Comment Transitional epi Urine Culture Reflexed Not indicated Thyroid Stimulating Hormone (TSH) 10.330uIU/mL (0.450-4.500) Free Thyroxine Index 1.5 (1.2-4.9) Thyroxine (T4) 5.7ug/dL (4.5-12.0) Triiodothyronine (T3) Uptake 26% (24-39) Test 08/03/16 20:52 08/04/16 01:15 08/04/16 04:15 08/05/16 03:00 Hold Purple Top Tube Received (Received) Hold Blue Top Tube Received (Received) Hold [place] Top Tube Received (Received) Troponin T 0.010ug/L (0.0-0.011) Phosphorus Level 3.7mg/dL (2.5-4.9) Triglycerides Level 73mg/dL (0-149) Cholesterol Level 115mg/dL (100-199) LDL Cholesterol, Calculated 65.400mg/dL (0-99) VLDL Cholesterol 14.600mg/dL HDL Cholesterol 35mg/dL (>39) Cholesterol/HDL Ratio 3.29 (0.0-4.4) Lactate Dehydrogenase 238U/L (100-190) Test 08/06/16 05:30 08/07/16 00:30 08/08/16 09:35 08/08/16 12:12 Pro-B-Type Natriuretic Peptide 307.6pg/mL (0-287) Magnesium Level 2.0mg/dL (1.6-2.6) Hold Muñoz Top Tube Received (Received) Prothrombin Time 10.0sec (8.1-12.5) Prothromb Time International Ratio 0.94ratio Body Fluid Source Pleural fluid Body Fluid Color Yellow (Clear) Body Fluid Appearance Hazy Body Fluid pH 7.6 (Not Estab.) Body Fluid WBC 3640/mm3 Body Fluid RBC 23734/mm3 Body Fluid Polynuclear WBCs 10% Body Fluid Lymphocytes 30% Body Fluid Monocytes 30% Body Fluid Eosinophils 0% Body Fluid Basophils 0% Body Fluid Lactate Dehydrogenase 219U/L Body Fluid Comment Pleural Fluid Total Protein 3.6g/dL Pleural Fluid Glucose 115mg/dL Test 08/08/16 14:51 08/09/16 01:30 08/10/16 06:50 Procalcitonin 0.05ng/mL (0.00-0.08) Hepatitis A IgM Antibody Negative (Negative) Hepatitis B Surface Antigen Negative (Negative) Hepatitis B Core IgM Antibody Negative (Negative) Hepatitis C Antibody <0.1s/co ratio (0.0-0.9) Hepatitis C Comment Comment (.) White Blood Count 13.3th/mm3 (3.8-10.1) Red Blood Count 3.19mil/mm3 (3.90-5.20) Hemoglobin 10.0g/dL (12.0-15.6) Hematocrit 30.9% (35.0-46.0) Mean Corpuscular Volume 96.9fL (81-100) Mean Corpuscular Hemoglobin 31.3pg (27.0-35.0) Mean Corpuscular Hemoglobin Concent 32.4% (32.0-37.0) Red Cell Distribution Width 16.3% (12.3-15.4) Platelet Count 797bil/L (150-400) Neutrophils (%) (Auto) 75% (40-74) Lymphocytes (%) (Auto) 9% (14-46) Monocytes (%) (Auto) 12% (4-12) Eosinophils (%) (Auto) 1% (0-5) Basophils (%) (Auto) 1% (0-3) Band Neutrophils % 2% (1-5) Nucleated Red Blood Cells 1/100 WBC (0-24) Hematology Comments Activated Partial Thromboplast Time 54.8sec (22.8-33.0) Sodium Level 133mEq/L (134-144) Potassium Level 4.7mEq/L (3.5-5.2) Chloride Level 97mEq/L (97-108) Carbon Dioxide Level 23mmol/L (18-29) Blood Urea Nitrogen 8mg/dL (8-27) Creatinine 0.42mg/dL (0.57-1.00) Estimat Glomerular Filtration Rate 220mL/min (>59) Glucose Level 124mg/dL (60-99) Calcium Level 8.4mg/dL (8.5-10.1) Total Bilirubin 0.2mg/dL (0.0-1.2) Aspartate Amino Transf (AST/SGOT) 44U/L (0-50) Alanine Aminotransferase (ALT/SGPT) 61U/L (0-32) Alkaline Phosphatase 79U/L (25-165) Total Protein 5.3g/dL (6.4-8.4) Albumin 2.8g/dL (3.4-5.0) Microbiology Results Blood culture negative Viral respiratory PCR negative Pleural fluid acid fast/gram stain/cultures negative Pleural fluid fungal culture pending Discharge Medications Discharge Medications Amoxicillin/Clav K 875-125 mg (Augmentin 875-125 mg) 1 Each Tablet 1 TABLET PO BID (Reported) Has taken 3 days worth Aspirin (Aspirin) 81 Mg Tablet 81 MG PO HS (Reported) Atenolol (Atenolol) 25 Mg Tablet 25 MG PO HS (Reported) Atorvastatin (Lipitor) 80 Mg Tablet 80 MG PO HS (Reported) Cyclosporine (Restasis) 1 Each Droperette 1 EACH OP BID (Reported) Patient own med, pt informed will need to bring in Fish Oil/Dha/Epa (Fish Oil 1,200 mg Fish Oil) 1 Each Capsule 1 EACH PO HS ( Reported) Fluoxetine (Prozac) 20 Mg Capsule 20 MG PO DAILY (Reported) Levothyroxine (Levothyroxine) 137 Mcg Tablet 137 MCG PO QAM (Reported) Melatonin (Melatonin) 3 Mg Tablet 3-5 MG PO HS (Reported) Multivit with Calcium,Iron,Min (Therapeutic M) 1 Each Tablet 1 EACH PO DAILY ( Reported) Ubidecarenone (Coenzyme Q-10) 200 Mg Capsule 200 MG PO DAILY (Reported) As needed Calcium Carbonate (Tums) 500 Mg Tab.chew 500-1,000 MG PO QID PRN PRN acid reflux (Reported) Famotidine (Famotidine) 20 Mg Tablet 20 MG PO BID PRN PRN acid reflux (Reported ) Ibuprofen (Ibuprofen) 400 Mg Tablet 400 MG PO QID PRN PRN For Pain (Reported) Followup Plan Disposition: Transfer to [facility] Follow-up plan Per [place] Discharge Diet: Heart Healthy Discharge Activity: Other (Per Czech) Patient Instructions Given the complexity of your medical issues, we requested a transfer to [facility] and they accepted it. Time spent Greater than 30 minutes was spent in preparation of discharge with greater than 50% of that time dedicated to patient counseling and coordination of care. . Attending Statement The patient was seen and examined together with Dr. Khanna on 08/10/2016 and I agree with the history, exam and plan as outlined in the note above. . copies to: Elizabeth Ann MD, Ngochanh H DO Aug 10, 2016 10:51 Yamil Celeste MD Aug 11, 2016 15:15
--- NOTE | 2016-08-10 12:10 | DRSVH ---
PROCEDURE: CT BRAIN WITHOUT CONTRAST ([id number]) INDICATIONS: Facial droop TECHNIQUE: Noncontrast 4.5 mm thick angled axial sections acquired from the foramen magnum to the vertex, with c oronal reformats. COMPARISON: [facility], CT, CT ANGIO BRAIN AND NECK, 08/04/2016, 10:11. [facility], CT, CT BRAIN WO CON, 08/03/2016, 20:58. [facility], CT, CT BRAIN WO CON, 7, 14:36. FINDINGS: Image quality: Degraded by motion artifact. CSF spaces: Basal cisterns are patent. No extra-axial fluid collections. The ventricles are symmet bhavna in size and shape. Brain: No intracranial bleeds or masses. The previously seen right frontal lobe subacute infarct has increased in size, currently measuring 55 mm anteroposterior. No change in bilateral basal ganglia c alcifications. There is cerebral volume loss for age, with resultant ventricular and sulcal prominenc e. There are periventricular and deep white matter chronic small vessel ischemic changes. There is intracranial internal carotid artery atherosclerosis. Skull and face: Calvarium and visualized facial bones appear intact, without suspicious lesions. Sinuses: Visualized sinuses and mastoids are clear. IMPRESSION: 1. Increased size of subacute right frontal lobe infarct. 2. No acute intracranial abnormality. Dictated by: Vj Uriarte M.D. on 08/10/2016 at 12:06 Approved by: Vj Uriarte M.D. on 08/10/2016 at 12:08
[2016-08-10 12:43] VITALS: BP 119/54; PULSE 74; RESP 18; O2SAT 93
[2016-08-10 16:27] VITALS: BP 125/61; PULSE 86; O2SAT 94
--- NOTE | 2016-08-10 17:45 | NUR ---
Transfer to [facility] Pt transferred to [facility] at 1730 via ambulance. Report given to transportation consultant and EMT's. Pts family at the bedside and took all belongings with them. Vitals stable, pt SLx2, tele removed. Pt still having left facial droop and left arm weakness. No c/o pain.
== END 2016-08-10 17:29 | disposition short-term general hospital (02) | DRG 291 ==
LOC: SED 12:28 → OBSVTOIN 18:13 → MPC 18:13 → PCC 08-03 21:17
PROVIDERS: ADMIT Hospitalist; ATTEND Hospitalist
PROC: 4A033R1 Measurement of Arterial Saturation, Peripheral, Percutaneous Approach (ICD-10-PCS; 2016-08-03)
PROC: 0W993ZX Drainage of Right Pleural Cavity, Percutaneous Approach, Diagnostic (ICD-10-PCS; principal; 2016-08-04)
PROC: 0W9B3ZX Drainage of Left Pleural Cavity, Percutaneous Approach, Diagnostic (ICD-10-PCS; 2016-08-08)
DX: I50.31 Acute diastolic (congestive) heart failure (principal); J18.9 Pneumonia, unspecified organism; J96.01 Acute respiratory failure with hypoxia; I63.9 Cerebral infarction, unspecified; I31.3 Pericardial effusion (noninflammatory); I87.1 Compression of vein; J91.8 Pleural effusion in other conditions classified elsewhere; Z95.2 Presence of prosthetic heart valve; Z79.82 Long term (current) use of aspirin; I65.22 Occlusion and stenosis of left carotid artery; R55 Syncope and collapse; I25.10 Atherosclerotic heart disease of native coronary artery without angina pectoris; Z85.71 Personal history of Hodgkin lymphoma; I48.0 Paroxysmal atrial fibrillation; Z92.3 Personal history of irradiation; I95.9 Hypotension, unspecified; F32.9 Major depressive disorder, single episode, unspecified; I35.2 Nonrheumatic aortic (valve) stenosis with insufficiency; I34.0 Nonrheumatic mitral (valve) insufficiency; I07.1 Rheumatic tricuspid insufficiency; D47.3 Essential (hemorrhagic) thrombocythemia